=== PATIENT | male | born 1960 | race Caucasian/White ===

== ENCOUNTER 2016-08-12 11:27 | Inpatient (IN) | payer OTHER ==
[2016-08-12] VITALS (8 sets, daily range): BP systolic 115–148; BP diastolic 75–95; PULSE 82–102; TEMP 36.8–36.9; O2SAT 90–98; Ht 177.8 cm; Wt 75.5 kg
[~2016-08-12] VITALS: Ht 177.8 cm; Wt 75.5 kg
[~2016-08-12 11:27] MED LIST: ALBU1AER9 INH; ATOR-54 PO; CHOL100010 PO; CITA20TA9 PO; CLBCR15 TD; FLUT220A INH; FOLI1TAB7 PO; IPRASOL4 INH; LVQ500 PO; OXYC-59 PO; OXYC30TA35 PO; SALM50AE2 INH; TIOTCAP INH
[2016-08-12] MEDS ORDERED: NALOXONE HCL 0.4 MG/1 ML VIAL/CARP ONE (11:30)
[2016-08-12] MEDS ORDERED: NALOXONE HCL 0.4 MG/1 ML VIAL/CARP IV STA (11:31)
[2016-08-12] MEDS ORDERED: SODIUM CHLORIDE 0.9% 1000ML 1,000 ML IV STA (11:31)
[2016-08-12] MEDS ORDERED: NALOXONE HCL INJ 1 MG in SODIUM CHLORIDE 0.9% 1000ML 1,000 ML IV STA (11:37)
[2016-08-12] MEDS ORDERED: ONDANSETRON 8 MG/54 ML D5W IV STA (11:38)
[2016-08-12] MEDS ORDERED: RAPID SEQUENCE INDUCTION BAG ONE (11:40)
[2016-08-12] MEDS ORDERED: VECURONIUM BROMIDE 10 MG VIAL IV STA (11:41)
[2016-08-12] MEDS ORDERED: SUCCINYLCHOLINE CHLORIDE 20 MG/ML 10 ML VIAL IV STA (11:41)
[2016-08-12] MEDS ORDERED: ETOMIDATE 2 MG/ML 20 ML VIAL IV STA (11:41)
[2016-08-12] MEDS ORDERED: PROPOFOL IV EMULSION 10 MG/ML 100 ML VIAL IV STA (11:41)
[2016-08-12 11:56] LABS: ISTAT CREATININE 1.3 mg/dl (0.6-1.3); ISTAT HEMOGLOBIN 13.3 g/dl (14.0-18.0); ISTAT IONIZED CALCIUM 1.19 mmol/l (1.12-1.32)
[2016-08-12] MEDS ORDERED: OPTIRAY 320 IV PRN (12:00)
--- NOTE | 2016-08-12 12:07 | EMERGENCY ROOM VISIT NOTE ---
History Report prepared by Jimena: Milind Duarte Under the Supervision of: Dr. Rojas Ayala M.D. First contact with patient: 11:29 Stated Complaint: AMS/UNRESPONSIVE History of Present Illness The patient is a 56 year old male who presents to the Emergency Room unresponsive. Per the EMS the patient was found unresponsive on the floor this morning prior to arrival. Per the EMS he was hypoxic and cyanotic and he was coughing up white frothy sputum. History is limited due to the patient's altered mental status. Source of History: EMS History Limited By: AMS Onset: prior to arrival Position: other (global) Quality: other (unresponsive) Associated Symptoms: + cough Review of Systems HPI is limited due to altered mental status Past Medical & Surgical Medical Problems: (1) ACUTE RESPIRATORY FAILURE (2) BPH (benign prostatic hypertrophy) (3) Chronic back pain (4) COPD, severe (5) Hyperlipidemia (6) PERSONAL HISTORY, PNEUMONIA (RECURRENT) (7) Psoriasis (8) Tobacco use disorder (9) Unresponsive state Surgical Problems: (1) H/O colonoscopy (2) S/P tonsillectomy and adenoidectomy Family History FH: COPD (chronic obstructive pulmonary disease) FATHER BROTHER FH: alpha 1 antitrypsin deficiency BROTHER Social History Smoking Status: Current Every Day Smoker Marital Status: Housing Status: lives with significant other Occupation Status: disabled Current/Historical Medications Scheduled Albuterol (Proair Hfa), 2 PUFFS INH QID Atorvastatin (Lipitor), 20 MG PO DAILY Cholecalciferol (Vitamin D), 1,000 INTER.UNIT PO DAILY Citalopram Hydrobromide (Celexa), 20 MG PO DAILY Clobetasol Propionate 0.05% (Clobetasol Propionate 0.05% *), 1 APPLN TD BID PRN Fluticasone Propionate Hfa (Flovent Hfa 220MCG Inhaler), 1 PUFF INH BID Folic Acid (Folvite), 1 MG PO DAILY Levofloxacin (Levofloxacin), 500 MG PO DAILY@20 Salmeterol Xinafoate Inh (Serevent Diskus Inh), 1 PUFF INH BID Tiotropium [place] (Spiriva Handihaler), 1 CAP INH DAILY Scheduled PRN Ipratropium-Albuterol (Duoneb), 1 TREATMENT INH Q4H PRN for SOB/Wheezing Oxycodone Hcl (Oxycontin), 30 MG PO q3hrs PRN for Pain Oxycodone/Acetaminophen 10MG/325MG (Percocet 10MG/325MG), 1-2 TAB PO Q4 PRN for Pain Allergies Coded Allergies: No Known Allergies (Verified , 06/20/07) Physical Exam Vital Signs Date Time Temp Pulse Resp B/P Pulse Ox O2 Delivery O2 Flow Rate FiO2 08/12/16 13:07 96 16 96 Mechanical Ventilator 08/12/16 13:02 95 Mechanical Ventilator 08/12/16 13:02 94 16 96 Mechanical Ventilator 08/12/16 13:02 100 Mechanical Ventilator 08/12/16 12:58 137/87 08/12/16 12:57 98 16 95 Mechanical Ventilator 08/12/16 12:52 98 16 95 Mechanical Ventilator 08/12/16 12:50 35 08/12/16 12:47 97 16 95 Mechanical Ventilator 08/12/16 12:43 124/78 08/12/16 12:42 101 16 95 Mechanical Ventilator 08/12/16 12:37 96 16 94 Mechanical Ventilator 08/12/16 12:32 98 16 94 Mechanical Ventilator 08/12/16 12:28 107/63 08/12/16 12:27 100 16 95 Mechanical Ventilator 08/12/16 12:22 104 16 96 Mechanical Ventilator 08/12/16 12:21 121/68 08/12/16 12:15 102 08/12/16 12:02 108 16 96 Mechanical Ventilator 08/12/16 11:57 106 16 100 Mechanical Ventilator 08/12/16 11:52 114 18 100 Mechanical Ventilator 08/12/16 11:51 113 22 149/94 100 Mechanical Ventilator 08/12/16 11:38 116 6 102/54 92 Room Air Physical Exam GENERAL: Patient has respiratory snoring, hypoxic upon arrival. HEAD: Normocephalic atraumatic EYES: Ocular movements intact pupils equal and react to light OROPHARYNX mucous membranes are moist no exudates present no erythema or edema present NECK: Supple no nuchal rigidity CHEST: Good equal expansion LUNGS: Clear and equal to auscultation CARDIAC: Normal S1 and S2 ABDOMEN: Soft nontender no guarding BACK: No CVA tenderness EXTREMITIES: No pain upon palpation normal muscle strength in all groups no clubbing cyanosis or edema NEURO: Responds to painful stimuli. Cranial Nerves 2-12 grossly intact Medical Decision & Procedures ER Provider Diagnostic Interpretation: X-ray results as stated below per my interpretation and radiologist interpretation. Other radiology results as stated below per my review and radiologist interpretation: CHEST ONE VIEW PORTABLE CLINICAL HISTORY: Hypoxia. Intubation. COMPARISON STUDY: Chest radiograph May 11, 2016. FINDINGS: The tip of the endotracheal tube is 7.4 cm above the nikolai. There is no pneumothorax. Severe emphysema is present. There is no pneumothorax or pleural effusion. Cardiac size is within normal limits. Lower lung interstitial thickening and mild opacities is present. IMPRESSION: 1. Tip of endotracheal tube 7.4 cm above the nikolai. 2. Lower lung interstitial thickening and airspace opacity. This could reflect atelectasis or developing pneumonia. 3. Severe emphysema. Electronically signed by: Donaldo Mar M.D. 08/12/2016 12:09 PM Dictated Date/Time: 08/12/2016 12:[address] CT DOSE: HISTORY: Altered mental status. Unresponsive. TECHNIQUE: Multiaxial CT images of the head were performed without the use of intravenous contrast. Automated exposure control was utilized for this study. Comparison: Head CT 06/25/2007. Findings: The paranasal sinuses and mastoid air cells are clear. The calvarium and skull base are intact. There is no mass, hematoma, midline shift, acute infarct. Ventricles and sulci are within normal limits. Persistent fluid within the nasopharynx posteriorly. This remains unchanged. Motion artifact at the inferior aspect of the brain. Impression: 1. Motion artifact. No definite acute intracranial abnormality. 2. Fluid within the nasopharynx, unchanged. Electronically signed by: Ronaldo Dubon M.D. 08/12/2016 12:41 PM Dictated Date/Time: 08/12/2016 12:[address] ANGIOGRAPHY OF THE CHEST, PULMONARY EMBOLUS PROTOCOL CLINICAL HISTORY: Altered mental status. COMPARISON STUDY: Chest CT July 31, 2015 and chest radiograph August 12, 2016. TECHNIQUE: Following IV administration of 109 mL of Optiray-320, helical axial images of the chest were obtained utilizing the pulmonary embolus protocol. Maximal intensity projections and sagittal and coronal reformats were viewed on an independent 3D workstation. IV contrast was administered without complication. CT DOSE: 1503.39 mGy.cm FINDINGS: No pulmonary emboli are identified. The size of the heart is at the upper limits of normal. There is no pericardial effusion. There are no enlarged thoracic lymph nodes. There is mild dilatation of the central pulmonary arteries. The tip of the endotracheal tube is 5.4 cm above the nikolai. No pneumothorax or pleural effusion is present. Severe emphysema is noted. There is no lobar consolidation. Bilateral lower lobe opacities have developed since prior exam. An 8 mm subpleural nodule within the right lower lobe shown on image 171 of [address] of January 04, 2012. This is benign given stability. There are moderate secretions within the left mainstem bronchus. Parenchymal calcifications within the pancreatic head are partially imaged on this exam. There are gallstones within the gallbladder. IMPRESSION: 1. No pulmonary emboli identified. 2. Satisfactory positioning of the endotracheal tube. 3. Severe emphysema. 4. Mild subpleural bilateral lower lobe opacities. The appearance favors atelectasis although pneumonia could appear similar. 5. Secretions within the left mainstem bronchus. 6. Dilatation of the central pulmonary arteries which raises the possibility of pulmonary arterial hypertension. 7. Cholelithiasis. Electronically signed by: Donaldo Mar M.D. 08/12/2016 12:43 PM Dictated Date/Time: 08/12/2016 12:31 PM Laboratory Results Test 08/12/16 11:15 08/12/16 11:16 08/12/16 11:25 08/12/16 11:40 Osmolality 300 mOsm/kg (280-300) Prothrombin Time 12.0 SECONDS (9.0-12.0) Prothromb Time International Ratio 1.1 (0.9-1.1) Activated Partial Thromboplast Time 23.7 SECONDS (21.0-31.0) Partial Thromboplastin Ratio 0.9 Lipase 46 U/L (73-393) Salicylates Level 2.6 mg/dl (2.8-20) Phosphorus Level 6.5 mg/dl (2.5-4.9) Hepatitis C Antibody Screen PRELIM POS (NEG) Bedside Hemoglobin 13.3 g/dl (14.0-18.0) Bedside Hematocrit 39 % (42-52) Bedside Sodium 140 mEq/L (135-144) Bedside Potassium 4.6 mEq/L (3.3-5.0) Bedside Chloride 102 mEq/L (101-112) Bedside Total CO2 28 mEq/l (24-31) Bedside Blood Urea Nitrogen 15 mg/dl (7-18) Bedside Creatinine 1.3 mg/dl (0.6-1.3) Bedside Glucose (other) 83 mg/dl (70-99) Bedside Ionized Calcium (Juan Jose) 1.19 mmol/l (1.12-1.32) Test 08/12/16 12:50 08/12/16 12:59 Urine Color YELLOW Urine Appearance CLEAR (CLEAR) Urine pH 5.0 (4.5-7.5) Urine Specific [place] 1.025 (1.000-1.030) Urine Protein NEG (NEG) Urine Glucose (UA) NEG (NEG) Urine Ketones NEG (NEG) Urine Occult Blood NEG (NEG) Urine Nitrite NEG (NEG) Urine Bilirubin NEG (NEG) Urine Urobilinogen NEG (NEG) Urine Leukocyte Esterase NEG (NEG) Urine Opiates Screen POS (NEG) Urine Methadone, Qualitative NEG (NEG) Urine Barbiturates NEG (NEG) Urine Phencyclidine (PCP) Level NEG (NEG) Ur Amphetamine/Methamphetamine NEG (NEG) MDMA (Ecstasy) Screen NEG (NEG) Urine Benzodiazepines Screen NEG (NEG) Urine Cocaine Metabolite NEG (NEG) Urine Marijuana (THC) NEG (NEG) Arterial Blood pH 7.26 (7.35-7.45) Arterial Blood Partial Pressure CO2 59 mmHg (35-46) Arterial Blood Partial Pressure O2 71 mm/Hg (80-95) Arterial Blood HCO3 26 mmol/L (19-24) Arterial Blood Oxygen Saturation 90.8 % (90-95) Arterial Blood Base Excess -1.5 mEq/L (-9-1.8) Arterial Blood Gas Delivery 35% Eleazar Test POS (POS) Labs reviewed by ED physician. Medications Administered Medications (Trade) Dose Ordered Sig/Margarita Route Start Time Stop Time Status Last Admin Dose Admin Sodium Chloride (Nss 1000ml) 1,000 ml @ 999 mls/hr Q1H1M STAT IV 08/12/16 11:31 08/12/16 12:31 DC 08/12/16 11:31 999 MLS/HR Naloxone HCl (Narcan Inj) 0.4 mg NOW STAT IV 08/12/16 11:31 08/12/16 11:33 DC 08/12/16 12:43 0.4 MG Etomidate (Amidate Inj) 20 mg 1141 STAT IV 08/12/16 11:41 08/12/16 11:43 DC 08/12/16 12:44 20 MG Succinylcholine Chloride (Quelicin Inj) 200 mg NOW STAT IV 08/12/16 11:41 08/12/16 11:43 DC 08/12/16 12:45 200 MG Vecuronium [place] (Vecuronium [place] Inj) 10 mg NOW STAT IV 08/12/16 11:41 08/12/16 11:43 DC 08/12/16 12:45 10 MG Propofol (Diprivan Iv Emulsion 100ml Vial) 1 dose UD STAT IV 08/12/16 11:41 08/12/16 11:43 DC 08/12/16 12:46 1 DOSE Miscellaneous 1 ea 1 ea STK-MED ONCE N/A 08/12/16 11:40 08/12/16 11:42 DC 08/12/16 11:40 1 EA Sodium Chloride (Nss 1000ml) 1,000 ml @ 100 mls/hr Q10H IV 08/12/16 13:00 09/11/16 12:59 08/13/16 09:48 100 MLS/HR Morphine Sulfate (MoRPHine SULFATE INJ) 2 mg Q2H PRN IV 08/12/16 13:00 08/26/16 12:59 08/13/16 11:57 2 MG Albuterol (Ventolin Hfa Inhaler) 2 puffs QID INH 08/12/16 13:00 09/11/16 12:59 08/13/16 13:35 2 PUFFS Procedure Endotracheal Intubation Indication Resp failure The patient was on 100% oxygen via NRB prior to the procedure. Suction, airway equipment, RSI drugs, respiratory equipment, and appropriate personnel were prepared prior to the initiation of the procedure. A time out was taken. Induction was performed with Etomidate and Succ. After observing the clinical benefit of the medications, the airway was easily visualized utilizing a Glidescope. A 8.0 size ETT tube was placed atraumatically to 25 cm using standard technique. The cuff inflated without signs of malfunction. There were bilateral breath sounds, positive colormetric change, no gastric sounds, a good capnography waveform, and post procedure pulse oximetry was 100%. Post intubation sedation and paralysis was administered using Vec and propofol. There were no complications. ED Course 1129: Past medical records reviewed. The patient was evaluated in room B1. A complete history and physical examination was performed. 1131: Narcan Inj .4mg IV, Sodium Chloride 1000 ml @ 999 mls/hr IV 1141: Propofol 1 dose IV, Vecuronium [place] 10mg IV, Succinylcholine Chloride 200mg IV, Amidate Inj 20mg IV 1222: I discussed the patient's case with Dr. Wakefield, and he suggests keeping the patient for further evaluation. 1225: I discussed the patient's case with Mariana Moyer PA-C. She is going to evaluate the patient for further treatment 1249: Vancomycin 1gm/ 270ml NSS 1gm IV, Zosyn 4.5gm IV Medical Decision Differential diagnosis: Etiologies such as metabolic, infection, hypoglycemia, electrolyte abnormalities , cardiac sources, intracerebral event, toxicologic, neurologic, as well as others were entertained. This is a 56-year-old male who presents emergency department unresponsive. The patient's states he is on Percocet as well as oxycodone. For this reason he was given Narcan in the emergency department however the patient did not respond well. Based on his history of COPD that the patient was intubated as above. He does appear to have a pneumonia on chest x-ray therefore he was started on antibiotics and given breathing treatments. I did discuss the case with both the credit or loans officer as well as the hospitalist who agreed to admit the patient. Patient was in agreement with the treatment plan Consults Time Called: 1219 Consulting Physician: Dr. Wakefield Returned Call: 1222 I discussed the patient's case with Dr. Wakefield, and he suggests keeping the patient for further evaluation. Additional Consults: Time Called: 1224 Consulted Physician: Mari Moyer PA-C Returned Call: 1225 Additional Comments: I discussed the patient's case with Mariana Moyer PA-C. She is going to evaluate the patient for further treatment Impression Primary Impression: ACUTE RESPIRATORY FAILURE Critical Care I have personally spent greater than 30 minutes of critical care time in the direct management of this patient. This includes bedside care, interpretation of diagnostic studies, and testing, discussion with consultants, patient, and family members, and other required patient management activities. This 30 minutes is in excess of all separately billable procedures. Scribe Attestation The scribe's documentation has been prepared under my direction and personally reviewed by me in its entirety. I confirm that the note above accurately reflects all work, treatment, procedures, and medical decision making performed by me. Departure Information Dispostion Being Evaluated By Hospitalist Referrals Howard Myers M.D. (PCP)
--- NOTE | 2016-08-12 12:10 | DIAGNOSTIC IMAGING REPORT ---
CHEST ONE VIEW PORTABLE CLINICAL HISTORY: Hypoxia. Intubation. COMPARISON STUDY: Chest radiograph May 11, 2016. FINDINGS: The tip of the endotracheal tube is 7.4 cm above the nkiolai. There is no pneumothorax. Severe emphysema is present. There is no pneumothorax or pleural effusion. Cardiac size is within normal limits. Lower lung interstitial thickening and mild opacities is present. IMPRESSION: 1. Tip of endotracheal tube 7.4 cm above the nikolai. 2. Lower lung interstitial thickening and airspace opacity. This could reflect atelectasis or developing pneumonia. 3. Severe emphysema. Electronically signed by: Donaldo Mar M.D. 08/12/2016 12:09 PM Dictated Date/Time: 08/12/2016 12:06 PM
[2016-08-12 12:17] LABS: COMPLETE YES; HEMATOCRIT 37.8 % (42-52); IG% 0.3 %; LYMPH % 3.6 %; MEAN CELL VOLUME 97.7 fL (80-100); MEAN CORPUSCULAR HEMOGLOBIN 32.6 pg (25-34); MEAN CORPUSCULAR HGB CONC 33.3 g/dl (32-36); MEAN PLATELET VOLUME 9.8 fL (7.4-10.4); NEUT % 94.1 %; PLATELET COUNT 171 K/uL (130-400); RED BLOOD COUNT 3.87 M/uL (4.7-6.1); WHITE BLOOD COUNT 11.03 K/uL (4.8-10.8)
[2016-08-12 12:25] LABS: INR 1.1 (0.9-1.1); PARTIAL THROMBOPLASTIN RATIO 0.9
[2016-08-12 12:40] LABS: ALT/SGPT 25 U/L (12-78); AST/SGOT 47 U/L (15-37); BLOOD UREA NITROGEN 14 mg/dl (7-18); BUN/CREATININE RATIO 9.2 (10-20); CALCIUM 8.8 mg/dl (8.5-10.1); CARBON DIOXIDE 25 mmol/L (21-32); CHLORIDE 105 mmol/L (98-107); GLUCOSE 81 mg/dl (70-99); POTASSIUM 4.5 mmol/L (3.5-5.1); SODIUM 142 mmol/L (136-145)
[2016-08-12 12:43] LABS: ALKALINE PHOSPHATASE 108 U/L (45-117)
--- NOTE | 2016-08-12 12:43 | DIAGNOSTIC IMAGING REPORT ---
HEAD CT NONCONTRAST CT DOSE: HISTORY: Altered mental status. Unresponsive. TECHNIQUE: Multiaxial CT images of the head were performed without the use of intravenous contrast. Automated exposure control was utilized for this study. Comparison: Head CT 06/25/2007. Findings: The paranasal sinuses and mastoid air cells are clear. The calvarium and skull base are intact. There is no mass, hematoma, midline shift, acute infarct. Ventricles and sulci are within normal limits. Persistent fluid within the nasopharynx posteriorly. This remains unchanged. Motion artifact at the inferior aspect of the brain. Impression: 1. Motion artifact. No definite acute intracranial abnormality. 2. Fluid within the nasopharynx, unchanged. Electronically signed by: Ronaldo Dubon M.D. 08/12/2016 12:41 PM Dictated Date/Time: 08/12/2016 12:35 PM
--- NOTE | 2016-08-12 12:44 | DIAGNOSTIC IMAGING REPORT ---
CT ANGIOGRAPHY OF THE CHEST, PULMONARY EMBOLUS PROTOCOL CLINICAL HISTORY: Altered mental status. COMPARISON STUDY: Chest CT July 31, 2015 and chest radiograph August 12, 2016. TECHNIQUE: Following IV administration of 109 mL of Optiray-320, helical axial images of the chest were obtained utilizing the pulmonary embolus protocol. Maximal intensity projections and sagittal and coronal reformats were viewed on an independent 3D workstation. IV contrast was administered without complication. CT DOSE: 1503.39 mGy.cm FINDINGS: No pulmonary emboli are identified. The size of the heart is at the upper limits of normal. There is no pericardial effusion. There are no enlarged thoracic lymph nodes. There is mild dilatation of the central pulmonary arteries. The tip of the endotracheal tube is 5.4 cm above the nikolai. No pneumothorax or pleural effusion is present. Severe emphysema is noted. There is no lobar consolidation. Bilateral lower lobe opacities have developed since prior exam. An 8 mm subpleural nodule within the right lower lobe shown on image 171 of [address] of January 04, 2012. This is benign given stability. There are moderate secretions within the left mainstem bronchus. Parenchymal calcifications within the pancreatic head are partially imaged on this exam. There are gallstones within the gallbladder. IMPRESSION: 1. No pulmonary emboli identified. 2. Satisfactory positioning of the endotracheal tube. 3. Severe emphysema. 4. Mild subpleural bilateral lower lobe opacities. The appearance favors atelectasis although pneumonia could appear similar. 5. Secretions within the left mainstem bronchus. 6. Dilatation of the central pulmonary arteries which raises the possibility of pulmonary arterial hypertension. 7. Cholelithiasis. Electronically signed by: Donaldo Mar M.D. 08/12/2016 12:43 PM Dictated Date/Time: 08/12/2016 12:31 PM
[2016-08-12] MEDS ORDERED: PIPERACILLIN/TAZOBACTAM 4.5 GM/100ML D5W IV STA (12:49)
[2016-08-12] MEDS ORDERED: VANCOMYCIN 1GM/270ML NSS IV STA (12:49)
[2016-08-12] MEDS ORDERED: LEVAQUIN 750MG / 150ML D5W IV ONE (13:00)
[2016-08-12] MEDS ORDERED: LORAZEPAM 2 MG/ML 1 ML VIAL IV PRN (13:00)
[2016-08-12] MEDS ORDERED: NITROGLYCERIN 0.4 MG SL PER TAB CHARGE SL PRN (13:00)
[2016-08-12] MEDS ORDERED: ONDANSETRON INJ 2 MG/ML 2 ML VIAL IV PRN (13:00)
[2016-08-12 13:09] LABS: ARTERIAL BLD GAS O2 SATURATION 90.8 % (90-95); ARTERIAL BLOOD GAS BASE EXCESS -1.5 mEq/L (-9-1.8); ARTERIAL BLOOD GAS HCO3 26 mmol/L (19-24); ARTERIAL BLOOD GAS PO2 71 mm/Hg (80-95); ARTERIAL BLOOD GAS pH 7.26 (7.35-7.45)
[2016-08-12 13:10] LABS: ALLEN TEST POS (POS); O2 ADMINISTRATION 35%
[2016-08-12 13:18] LABS: URINE APPEARANCE CLEAR (CLEAR); URINE BILIRUBIN NEG (NEG); URINE COLOR YELLOW; URINE NITRITE NEG (NEG); URINE SPECIFIC GRAVITY 1.025 (1.000-1.030); UROBILINOGEN NEG (NEG)
[2016-08-12 13:22] LABS: MANUAL MICROSCOPIC REQUIRED? NO; REVIEW REQ? NO
[2016-08-12 13:51] LABS: BENZODIAZEPINE, URINE NEG (NEG); COCAINE,URINE NEG (NEG); PHENCYCLIDINE, URINE NEG (NEG)
--- NOTE | 2016-08-12 14:08 | Medical Student: [facility] ---
Med Student History & Physical Date & Time of Service: Aug 12, 2016 at 13:58 Chief Complaint: Ams/Unresponsive Primary Care Physician: Howard Myers M.D. History of Present Illness Source: family (daughter), hospital records Pt is a 56 yo male with a history of Emphysema and Chronic back pain - who presented to the ED via EMS after he was found unresponsive in his home. In the ED he responded to Narcan, but became bradypneic again and was intubated. Per pt 's daughter, pt frequently takes "too much" prescribed pain medication and often talks about how he just wants to "give up." Per daughter's report the pt has previously been hospitalized and intubated for opioid overdose about 5 years ago. Pt's daughter reports that he is perscribed 10 mg of oxycontin 8x daily and 60 mg of percocet, prn for break through pain. Pt's daughter was considering calling [facility] today, as she was very worried about her father and the amount of pain medication he has been taking. Past Medical/Surgical History COPD - emphysema Chronic back pain Family History Unable to obtain as pt is sedated. Social History Smoking Status: Current Every Day Smoker Alcohol Use: none Marital Status: Housing status: lives with significant other Occupational Status: disabled Immunizations History of Influenza Vaccine: N/A Influenza Vaccine Date: Apr 19, 2009 History of Tetanus Vaccine?: Unknown History of Pneumococcal: Yes Pneumococcal Date: Jan 03, 2011 History of Hepatitis B Vaccine: No Allergies Coded Allergies: No Known Allergies (Verified , 06/20/07) Medications Albuterol (Proair Hfa), 2 PUFFS INH QID Atorvastatin (Lipitor), 20 MG PO DAILY Cholecalciferol (Vitamin D), 1,000 INTER.UNIT PO DAILY Citalopram Hydrobromide (Celexa), 20 MG PO DAILY Clobetasol Propionate 0.05% (Clobetasol Propionate 0.05% *), 1 APPLN TD BID PRN Fluticasone Propionate Hfa (Flovent Hfa 220MCG Inhaler), 1 PUFF INH BID Folic Acid (Folvite), 1 MG PO DAILY Ipratropium-Albuterol (Duoneb), 1 TREATMENT INH Q4H PRN for SOB/Wheezing Levofloxacin (Levofloxacin), 500 MG PO DAILY@20 Oxycodone Hcl (Oxycontin), 30 MG PO q3hrs PRN for Pain Oxycodone/Acetaminophen 10MG/325MG (Percocet 10MG/325MG), 1-2 TAB PO Q4 PRN for Pain Salmeterol Xinafoate Inh (Serevent Diskus Inh), 1 PUFF INH BID Tiotropium Wellborn (Spiriva Handihaler), 1 CAP INH DAILY Review of Systems unable to obtain as pt is currently sedated. Physical Exam Vital Signs (24 Hours) Date Time Temp Pulse Resp B/P Pulse Ox O2 Delivery O2 Flow Rate FiO2 08/12/16 13:32 89 08/12/16 13:07 96 16 96 Mechanical Ventilator 08/12/16 13:02 95 Mechanical Ventilator 08/12/16 13:02 94 16 96 Mechanical Ventilator 08/12/16 13:02 100 Mechanical Ventilator 08/12/16 12:58 137/87 08/12/16 12:57 98 16 95 Mechanical Ventilator 08/12/16 12:52 98 16 95 Mechanical Ventilator 08/12/16 12:50 35 08/12/16 12:47 97 16 95 Mechanical Ventilator 08/12/16 12:43 124/78 08/12/16 12:42 101 16 95 Mechanical Ventilator 08/12/16 12:37 96 16 94 Mechanical Ventilator 08/12/16 12:32 98 16 94 Mechanical Ventilator 08/12/16 12:28 107/63 08/12/16 12:27 100 16 95 Mechanical Ventilator 08/12/16 12:22 104 16 96 Mechanical Ventilator 08/12/16 12:21 121/68 08/12/16 12:15 102 08/12/16 12:02 108 16 96 Mechanical Ventilator 08/12/16 11:57 106 16 100 Mechanical Ventilator 08/12/16 11:52 114 18 100 Mechanical Ventilator 08/12/16 11:51 113 22 149/94 100 Mechanical Ventilator 08/12/16 11:38 116 6 102/54 92 Room Air General Appearance: + pertinent finding (Currently intubated and sedated) Head: normocephalic, atraumatic Eyes: + pertinent finding (pinpoint pupils, non-reactive to light. ) Neck: supple, no JVD Respiratory/Chest: + decreased breath sounds Cardiovascular: regular rate, rhythm, no murmur, + abnormal peripheral pulses ( 2+ radial pulses bilaterally, 2+ right pedal pulse, 1+ left pedal pulse) Abdomen/GI: normal bowel sounds, soft, no pulsatile mass Extremities/Musculoskelatal: normal inspection, no pedal edema, + pertinent finding (Severe onychomycosis bilaterally in LE) Skin: normal color, warm/dry Diagnostics Laboratory Results Results Past 24 Hours Test 08/12/16 11:15 08/12/16 11:16 08/12/16 11:25 08/12/16 11:40 Range/Units White Blood Count 11.03 4.8-10.8 K/uL Red Blood Count 3.87 4.7-6.1 M/uL Hemoglobin 12.6 14.0-18.0 g/dL Hematocrit 37.8 42-52 % Mean Corpuscular Volume 97.7 80-100 fL Mean Corpuscular Hemoglobin 32.6 25-34 pg Mean Corpuscular Hemoglobin Concent 33.3 32-36 g/dl Platelet Count 171 130-400 K/uL Mean Platelet Volume 9.8 7.4-10.4 fL Neutrophils (%) (Auto) 94.1 % Lymphocytes (%) (Auto) 3.6 % Monocytes (%) (Auto) 2.0 % Eosinophils (%) (Auto) 0.0 % Basophils (%) (Auto) 0.0 % Neutrophils # (Auto) 10.38 1.4-6.5 K/uL Lymphocytes # (Auto) 0.40 1.2-3.4 K/uL Monocytes # (Auto) 0.22 0.11-0.59 K/uL Eosinophils # (Auto) 0.00 0-0.5 K/uL Basophils # (Auto) 0.00 0-0.2 K/uL RDW Standard Deviation 49.0 36.4-46.3 fL RDW Coefficient of Variation 13.8 11.5-14.5 % Immature Granulocyte % (Auto) 0.3 % Immature Granulocyte # (Auto) 0.03 0.00-0.02 K/uL Prothrombin Time 12.0 9.0-12.0 SECONDS Prothromb Time International Ratio 1.1 0.9-1.1 Activated Partial Thromboplast Time 23.7 21.0-31.0 SECONDS Partial Thromboplastin Ratio 0.9 Sodium Level 142 136-145 mmol/L Potassium Level 4.5 3.5-5.1 mmol/L Chloride Level 105 98-107 mmol/L Carbon Dioxide Level 25 21-32 mmol/L Anion Gap 12.0 15.0 16-25 mmol/L Blood Urea Nitrogen 14 7-18 mg/dl Creatinine 1.50 0.60-1.40 mg/dl Estimated GFR () 59.0 Estimated GFR (Non- 50.9 BUN/Creatinine Ratio 9.2 10-20 Random Glucose 81 70-99 mg/dl Calcium Level 8.8 8.5-10.1 mg/dl Total Bilirubin 0.6 0.2-1 mg/dl Direct Bilirubin 0.2 0-0.2 mg/dl Aspartate Amino Transf (AST/SGOT) 47 15-37 U/L Alanine Aminotransferase (ALT/SGPT) 25 12-78 U/L Alkaline Phosphatase 108 45-117 U/L Total Creatine Kinase 579 39-308 U/L Total Protein 6.7 6.4-8.2 gm/dl Albumin 4.1 3.4-5.0 gm/dl Lipase 46 73-393 U/L Salicylates Level 2.6 2.8-20 mg/dl Acetaminophen Level 52 10-30 ug/ml Creatine Kinase MB 12.5 0.5-3.6 ng/ml Creatine Kinase MB Ratio 0-3.0 Troponin I 0.021 0-0.045 ng/ml Bedside Hemoglobin 13.3 14.0-18.0 g/dl Bedside Hematocrit 39 42-52 % Bedside Sodium 140 135-144 mEq/L Bedside Potassium 4.6 3.3-5.0 mEq/L Bedside Chloride 102 101-112 mEq/L Bedside Total CO2 28 24-31 mEq/l Bedside Blood Urea Nitrogen 15 7-18 mg/dl Bedside Creatinine 1.3 0.6-1.3 mg/dl Bedside Glucose (other) 83 70-99 mg/dl Bedside Ionized Calcium (Juan Jose) 1.19 1.12-1.32 mmol/l Test 08/12/16 12:50 08/12/16 12:59 08/12/16 13:18 Range/Units Urine Color YELLOW Urine Appearance CLEAR CLEAR Urine pH 5.0 4.5-7.5 Urine Specific [place] 1.025 1.000-1.030 Urine Protein NEG NEG Urine Glucose (UA) NEG NEG Urine Ketones NEG NEG Urine Occult Blood NEG NEG Urine Nitrite NEG NEG Urine Bilirubin NEG NEG Urine Urobilinogen NEG NEG Urine Leukocyte Esterase NEG NEG Urine Opiates Screen POS NEG Urine Methadone, Qualitative NEG NEG Urine Barbiturates NEG NEG Urine Phencyclidine (PCP) Level NEG NEG Ur Amphetamine/Methamphetamine NEG NEG MDMA (Ecstasy) Screen NEG NEG Urine Benzodiazepines Screen NEG NEG Urine Cocaine Metabolite NEG NEG Urine Marijuana (THC) NEG NEG Arterial Blood pH 7.26 7.35-7.45 Arterial Blood Partial Pressure CO2 59 35-46 mmHg Arterial Blood Partial Pressure O2 71 80-95 mm/Hg Arterial Blood HCO3 26 19-24 mmol/L Arterial Blood Oxygen Saturation 90.8 90-95 % Arterial Blood Base Excess -1.5 -9-1.8 mEq/L Arterial Blood Gas Delivery 35% Eleazar Test POS POS Microbiology Results 08/12/16 Blood Culture, Received Pending 08/12/16 Blood Culture, Received Pending 08/12/16 Blood Culture, Linda Batch Pending 08/12/16 Blood Culture, Linda Batch Pending Impression Assessment and Plan Pt is 56 yo male with a history of COPD and chronic back pain who was found unresponsive in his home and brought to the ED via EMS. Neurologic * Sedated on ventilator following presumed overdose - unclear if intentional or unintentional * RASS -5 * EEG ordered * Lorazepam 1 mg q6hrs PRN for anxiety/agitation * Morphine Sulfate 2 mg q 1hrs PRN for pain Cardiovascular * Normotensive with normal heart rate - not on home medications for blood pressure * Nitroglycerin 0.4 ordered prn for chest pain * Chest CT remarkable for pulmonary artery dilation and thus possible pulmonary artery hypertension Respiratory * Intubated. Recommend Extubation and BIPAP 40% FIO2 12/5. * Acute Respiratory Acidosis * Continue home medications Tiotropium Wellborn qday, Salmeterol Xinafoate BID, Albuterol QID. Renal * MORRO - creatinine increased to 1.5 on admission, up from normal baseline. * Branham catheter in place - continue to monitor I's and O's. GI * Pantoprazole 40 mg q day IV * Zofran 4 mg q 6hrs PRN Infectious Disease * WBC elevated - 11.3 on admission. Continue to monitor daily. * CXR and Chest CT both show severe emphysema and are inconclusive as to whether he may have acute PNA vs Atelectasis * Blood cxs ordered * Empiric Abx started - IV Pip/Tazo 3.375 gms in dextrose 115 mLs at 200 mLs/hr Endo * continue to monitor blood glucose levels. Goal serum glucose <120. Hematology * No concerns at present. Fluids * NSS 1,000 mLs at 100 mLs/hr q 10 hours Dispo: Admit to ICU Full Resuscitation Consider VTE prophylaxis Level of Care Critical Care Resuscitation Status FULL RESUSCITATION Note I saw the patient with student Dr. Shavon Brown. Independently evaluated the patient as well as taken history, please refer to the resident's note as well as their addendum.
[2016-08-12] MEDS ORDERED: PROPOFOL IV EMULSION 10 MG/ML 20 ML VIAL IV ONE (14:10)
--- NOTE | 2016-08-12 14:10 | HISTORY & PHYSICAL EXAMINATION ---
DATE OF ADMISSION: 08/12/2016 CHIEF COMPLAINT: Unresponsiveness. HISTORY OF PRESENT ILLNESS: This is a 56-year-old male with past medical history significant for severe COPD on home oxygen but does not use frequently as per , history of chronic bilateral low back pain and bilateral sciatica and neck pain, tobacco use disorder, psoriasis, history of BPH, history of testicular hypofunction, history of elevated blood pressure, history of respiratory failure in the past, history of benign neoplasm of colon, history of hyperlipidemia, history of alpha 1 antitrypsin deficiency, was found unresponsive at home. As per the , the patient was somewhat restless and talking to himself last night. He does at once in a while and she thought maybe he took extra pain medications, but in the morning when his friend went to check on him, he was found unresponsive and frothing around his mouth and was brought into the ER. In the ER, his respiratory rates were very low and he was given 0.4 of Narcan. He woke up for a brief while and was placed on BiPAP and he talked for a while but he did not answer the questions about what he took, and he went back to sleep, so at that time was decided for intubation. Currently, the patient is intubated, paralyzed and sedated.Hemodynamics stable currently. He is afebrile. Could not get review of symptoms as the patient is currently sedated and intubated. ALLERGIES: No known drug allergies. PAST MEDICAL HISTORY: As mentioned above. PAST SURGICAL HISTORY: Colonoscopy with biopsy, tonsillectomy and adenoidectomy. MEDICATIONS AT HOME: The patient is on folic acid 1 mg p.o. daily, atorvastatin 20 mg p.o. daily, azithromycin rescue pack, prednisone as directed, Serevent Diskus 1 puff b.i.d., Lasix 20 mg for his leg swelling and potassium chloride ER 20 mEq when taking Lasix, ProAir 2 puffs 4 times a day as needed, albuterol nebulization every 4 hours p.r.n., oxycodone 30 mg p.o. every 3 hours as needed, Percocet 10/325 mg 1 or 2 pills every 4 hours as needed, vitamin D 2000 units p.o. daily, Spiriva 18 mcg inhalation daily. FAMILY HISTORY: Significant for father has COPD and gout. SOCIAL HISTORY: Smokes 2 packs a day for 40 years. Alcohol rare. No drug use. He is and lives with his . REVIEW OF SYMPTOMS: Unobtainable as the patient is intubated and sedated. PHYSICAL EXAMINATION: VITAL SIGNS: Temperature afebrile, pulse 102, respiratory rate 22, blood pressure 102/54, oxygen 100% on mechanical ventilator. GENERAL: The patient is intubated and sedated. HEENT: No pallor. No icterus. Pupils mildly reactive to light, constricted. NECK: No JVD, no neck masses, no carotid bruits. CARDIOVASCULAR: S1, S2 heard, regular rate and rhythm. No murmur. RESPIRATORY SYSTEM: Normal Ap diameter No accessory muscle use. No wheezing, no crackles. ABDOMEN: Soft, bowel sounds present. No distention. CENTRAL NERVOUS SYSTEM: Status post sedated and intubated. Babinski is negative. EXTREMITIES: No edema, no erythema. LABORATORIES: WBC 11.03, hemoglobin 12.6, hematocrit 37.8, platelets 171. Sodium 140, potassium 4.6, chloride 102, bicarb 28, BUN 15, creatinine 1.3, serum glucose 83. Point of care ionized calcium 1.19. ABG pending. PT 12, INR 1.1, PTT 23.7. Urinalysis pending. Toxicology screen pending. IMAGING DATA: Chest x-ray - tip of endotracheal tube 7.47 cm above nikolai, lower lung interstitial thickening and airspace opacity; this could reflect atelectasis or developing pneumonia severe emphysema. ASSESSMENT AND PLAN: This is a 56-year-old male presents with unresponsive episode. 1. Unresponsive episode, most likely secondary to narcotic overdose with underlying severe chronic obstructive pulmonary disease. Status post minimal response to 0.4 mg .currently status post sedated and intubated. Supportive care. Toxicology screen pending. Will monitor in ICU. Critical care on board. Vent management as per critical care. CT head and CTA chest unremarkable 2. Possible pneumonia, possible aspiration _Hx of chronic obstructive pulmonary disease. We will place him on IV Zosyn and IV doxycycline and follow the cultures and follow the chest x-rays and follow the labs. 3. Severe chronic obstructive pulmonary disease. Currently intubated. inhalers while on ventilator. 4. Chronic pain. The patient is on oxycodone and Percocet, which we will hold for now as the patient is possibly overdosed. Will restart cautiously when the patient is more awake. 5. History of hyperlipidemia. Hold statin. 6. Deep venous thrombosis prophylaxis. Sequential compression devices for now. 7. Disposition: Monitor in ICU. MTDD
[2016-08-12] MEDS ORDERED: PIPERACILL/TAZOBAC CONSULT ACTIVE PRN (14:45)
--- NOTE | 2016-08-12 15:01 | Critical Care Consultation ---
Critical Care Consultation Date of Consultation: Aug 12, 2016. Attending Physician: Reason for Consultation: Unresponsive s/p intubation History of Present Illness This is a 56 y/o M with a history of COPD, CHronic back pain, anxiety/ depression who was brought to the ER after being found at home unresponsive by a friend. No history was obtainable from the patient. However, Daughter was in the room and reports that this has been an ongoing issue. He takes a significant amount of pain medicine for his chronic back pain and usually takes too much. He has been found unresponsive in the past and was intubated. 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 Since then he has not been able to work and has been on disability. He is a smoker and was an alcoholic but stopped the alcohol because of interactions with his oxycodone. She reports that she was going to call [employer] today due to his mood/possible suicidal ideations. She reports that he has "given up." is POA. In the ED, he was given Narcan, to which he seemed to respond but then became unresponsive again after which he was intubated. Family History FH: COPD (chronic obstructive pulmonary disease) FATHER BROTHER FH: alpha 1 antitrypsin deficiency BROTHER Social History Smoking Status: Current Every Day Smoker Alcohol Use: none Marital Status: Housing Status: lives with significant other Occupation Status: disabled Allergies Coded Allergies: No Known Allergies (Verified , 06/20/07) Home Medications Scheduled Albuterol (Proair Hfa), 2 PUFFS INH QID Atorvastatin (Lipitor), 20 MG PO DAILY Cholecalciferol (Vitamin D), 1,000 INTER.UNIT PO DAILY Citalopram Hydrobromide (Celexa), 20 MG PO DAILY Clobetasol Propionate 0.05% (Clobetasol Propionate 0.05% *), 1 APPLN TD BID PRN Fluticasone Propionate Hfa (Flovent Hfa 220MCG Inhaler), 1 PUFF INH BID Folic Acid (Folvite), 1 MG PO DAILY Levofloxacin (Levofloxacin), 500 MG PO DAILY@20 Salmeterol Xinafoate Inh (Serevent Diskus Inh), 1 PUFF INH BID Tiotropium [place] (Spiriva Handihaler), 1 CAP INH DAILY Scheduled PRN Ipratropium-Albuterol (Duoneb), 1 TREATMENT INH Q4H PRN for SOB/Wheezing Oxycodone Hcl (Oxycontin), 30 MG PO q3hrs PRN for Pain Oxycodone/Acetaminophen 10MG/325MG (Percocet 10MG/325MG), 1-2 TAB PO Q4 PRN for Pain Current Inpatient Medications Current Inpatient Medications Medications (Trade) Dose Ordered Sig/Margarita Route Start Time Stop Time Status Last Admin Dose Admin Naloxone HCl/ Sodium Chloride (Narcan Inj/Nss 1000ml) 1,002.5 ml @ 50 mls/hr Q20H3M STAT IV 08/12/16 11:37 08/13/16 07:39 Ioversol 125 ml 125 ml UD PRN IV 08/12/16 12:00 08/16/16 11:59 Sodium Chloride (Nss 1000ml) 1,000 ml @ 100 mls/hr Q10H IV 08/12/16 13:00 09/11/16 12:59 Lorazepam (Ativan Inj) 1 mg Q6H PRN IV 08/12/16 13:00 09/11/16 12:59 Nitroglycerin (Nitrostat Tab) 0.4 mg UD PRN SL 08/12/16 13:00 09/11/16 12:59 Ondansetron HCl 4 mg 4 mg Q6H PRN IV 08/12/16 13:00 09/11/16 12:59 Pantoprazole Sodium/Syringe (Protonix Inj/ Syringe) 10 ml @ 5 mls/min DAILY IV 08/13/16 09:00 09/12/16 08:59 UNV Morphine Sulfate (MoRPHine SULFATE INJ) 2 mg Q2H PRN IV 08/12/16 13:00 08/26/16 12:59 Albuterol (Ventolin Hfa Inhaler) 2 puffs QID INH 08/12/16 13:00 09/11/16 12:59 UNV Salmeterol Xinafoate (Serevent Diskus Inh) 1 puffs BID INH 08/12/16 21:00 09/11/16 20:59 UNV Tiotropium [place] 1 puff 1 puff DAILY INH 08/13/16 09:00 09/12/16 08:59 UNV Piperacillin Sod/ Tazobactam Sod 3.375 gm/Dextrose 115 ml @ 200 mls/hr Q6 IV 08/12/16 18:00 08/14/16 17:59 UNV Doxycycline Hyclate/Dextrose (Vibramycin IV/ D5 100ml) 110 ml @ 50 mls/hr BID IV 08/12/16 13:00 08/19/16 12:59 UNV Review of Systems unobtainable Physical Exam Date Time Temp Pulse Resp B/P Pulse Ox O2 Delivery O2 Flow Rate FiO2 08/12/16 13:58 36.9 85 16 119/80 95 Mechanical Ventilator 08/12/16 13:32 89 08/12/16 13:07 96 16 96 Mechanical Ventilator 08/12/16 13:02 95 Mechanical Ventilator 08/12/16 13:02 94 16 96 Mechanical Ventilator 08/12/16 13:02 100 Mechanical Ventilator 08/12/16 12:58 137/87 08/12/16 12:57 98 16 95 Mechanical Ventilator 08/12/16 12:52 98 16 95 Mechanical Ventilator 08/12/16 12:50 35 08/12/16 12:47 97 16 95 Mechanical Ventilator 08/12/16 12:43 124/78 08/12/16 12:42 101 16 95 Mechanical Ventilator 08/12/16 12:37 96 16 94 Mechanical Ventilator 08/12/16 12:32 98 16 94 Mechanical Ventilator 08/12/16 12:28 107/63 08/12/16 12:27 100 16 95 Mechanical Ventilator 08/12/16 12:22 104 16 96 Mechanical Ventilator 08/12/16 12:21 121/68 08/12/16 12:15 102 08/12/16 12:02 108 16 96 Mechanical Ventilator 08/12/16 11:57 106 16 100 Mechanical Ventilator 08/12/16 11:52 114 18 100 Mechanical Ventilator 08/12/16 11:51 113 22 149/94 100 Mechanical Ventilator 08/12/16 11:38 116 6 102/54 92 Room Air General Appearance: + pertinent finding (Intubated) Eyes: + pertinent finding (pupils miotic) Neck: thyroid normal, no JVD, trachea midline Respiratory/Chest: + pertinent finding (distant breath sounds) Cardiovascular: regular rate, rhythm, no edema, no JVD, no murmur, + pertinent finding (distant heart sounds) Abdomen/GI: normal bowel sounds, soft Extremities/Musculoskelatal: normal inspection, no pedal edema, + pertinent finding (right dp 2+, left dp is faint, Onychomycosis ) Laboratory Results Last 24 Hours Test 08/12/16 11:15 08/12/16 11:16 08/12/16 11:25 08/12/16 11:40 Osmolality 300 mOsm/kg White Blood Count 11.03 K/uL Red Blood Count 3.87 M/uL Hemoglobin 12.6 g/dL Hematocrit 37.8 % Mean Corpuscular Volume 97.7 fL Mean Corpuscular Hemoglobin 32.6 pg Mean Corpuscular Hemoglobin Concent 33.3 g/dl Platelet Count 171 K/uL Mean Platelet Volume 9.8 fL Neutrophils (%) (Auto) 94.1 % Lymphocytes (%) (Auto) 3.6 % Monocytes (%) (Auto) 2.0 % Eosinophils (%) (Auto) 0.0 % Basophils (%) (Auto) 0.0 % Neutrophils # (Auto) 10.38 K/uL Lymphocytes # (Auto) 0.40 K/uL Monocytes # (Auto) 0.22 K/uL Eosinophils # (Auto) 0.00 K/uL Basophils # (Auto) 0.00 K/uL RDW Standard Deviation 49.0 fL RDW Coefficient of Variation 13.8 % Immature Granulocyte % (Auto) 0.3 % Immature Granulocyte # (Auto) 0.03 K/uL Prothrombin Time 12.0 SECONDS Prothromb Time International Ratio 1.1 Activated Partial Thromboplast Time 23.7 SECONDS Partial Thromboplastin Ratio 0.9 Sodium Level 142 mmol/L Potassium Level 4.5 mmol/L Chloride Level 105 mmol/L Carbon Dioxide Level 25 mmol/L Anion Gap 12.0 mmol/L 15.0 mmol/L Blood Urea Nitrogen 14 mg/dl Creatinine 1.50 mg/dl Estimated GFR () 59.0 Estimated GFR (Non- 50.9 BUN/Creatinine Ratio 9.2 Random Glucose 81 mg/dl Calcium Level 8.8 mg/dl Total Bilirubin 0.6 mg/dl Direct Bilirubin 0.2 mg/dl Aspartate Amino Transf (AST/SGOT) 47 U/L Alanine Aminotransferase (ALT/SGPT) 25 U/L Alkaline Phosphatase 108 U/L Total Creatine Kinase 579 U/L Total Protein 6.7 gm/dl Albumin 4.1 gm/dl Lipase 46 U/L Salicylates Level 2.6 mg/dl Acetaminophen Level 52 ug/ml Creatine Kinase MB 12.5 ng/ml Creatine Kinase MB Ratio Troponin I 0.021 ng/ml Bedside Hemoglobin 13.3 g/dl Bedside Hematocrit 39 % Bedside Sodium 140 mEq/L Bedside Potassium 4.6 mEq/L Bedside Chloride 102 mEq/L Bedside Total CO2 28 mEq/l Bedside Blood Urea Nitrogen 15 mg/dl Bedside Creatinine 1.3 mg/dl Bedside Glucose (other) 83 mg/dl Bedside Ionized Calcium (Juan Jose) 1.19 mmol/l Test 08/12/16 12:50 08/12/16 12:59 08/12/16 13:18 Urine Color YELLOW Urine Appearance CLEAR Urine pH 5.0 Urine Specific Rogers 1.025 Urine Protein NEG Urine Glucose (UA) NEG Urine Ketones NEG Urine Occult Blood NEG Urine Nitrite NEG Urine Bilirubin NEG Urine Urobilinogen NEG Urine Leukocyte Esterase NEG Urine Opiates Screen POS Urine Methadone, Qualitative NEG Urine Barbiturates NEG Urine Phencyclidine (PCP) Level NEG Ur Amphetamine/Methamphetamine NEG MDMA (Ecstasy) Screen NEG Urine Benzodiazepines Screen NEG Urine Cocaine Metabolite NEG Urine Marijuana (THC) NEG Arterial Blood pH 7.26 Arterial Blood Partial Pressure CO2 59 mmHg Arterial Blood Partial Pressure O2 71 mm/Hg Arterial Blood HCO3 26 mmol/L Arterial Blood Oxygen Saturation 90.8 % Arterial Blood Base Excess -1.5 mEq/L Arterial Blood Gas Delivery 35% Eleazar Test POS Assessment & Plan Neuro: Questionable narcotic Overdose- Narcan given, to which he responded briefly but became unresponsive again intubated Hold on sedation Will need pysch eval Head CT negative Urine tox +'ve for opiates and acetaminophen Depression: Continue Celexa Cardiovascular- stable DLD- continue lipitor Respiratory: Hypercapnic respiratory failure 2/2 possible drug overdose ABG- respiratory acidosis Vent Settings: Tv- 500, Peep 5, FiO2 Plan is to extubate today Chest Xray with questionable pneumonia Patient was started on Levaquin CT chest with severe Emphysematous blebs H/O of COPD/Emphysema- continue Proair, Spiriva, Serevent GI: Stable NPO Protonix not indicated; can be DC'd Mild AST elevation - trend / Electrolytes Electrolytes stable MORRO- Hydration MSK: Mild Rhabdo likely from being immobile/unresponsive Fluids Endo: Normal Blood sugars Heme/Onc Mild Anemia- stable from 2014- could do iron studies ID: Mild elevation in Wbc count Blood cultures pending Questionable pneumonia- Started on Doxy and Zosyn Dispo: ICU Code: Full Resident Physician Supervision Note: Dr. Lilia De Dios was resident physician during care of patient. I separately evaluated patient and did history and exam. I discussed the case with the resident and generally agree with the findings and plan. When I saw the patient is emergency department he was critically ill due to altered sensorium and hypoxic hypercarbic respiratory failure Neuro: Response with yes or no to commands, after extubation was able to an adverse Cardiovascular: Initial troponins unremarkable repeat every 8 pending Respiratory: Significant COPD, able to be extubated upon arrival in unit. Keep sats between 80-92% highly suspect the patient has hypoxic respiratory drive. Concern for possible aspiration, continue antibiotic coverage at this time for possible COPD exacerbation, steroids IV Abdomen: Past bedside swallow study, regular diet ordered and tolerating Renal: Repeat toxicology labs negative,. Respiratory acidosis with chronic renal compensation Infectious disease: Antibiotics for possible aspiration and possible COPD exacerbation Hematology: Prophylaxis Mental health: There is a concern for a possible intentional overdose, I have placed a consult in to mental health.. I have personally spent 55 minutes of critical care time in the direct management of this patient. This is a life/limb threatening event. This includes time spent evaluating patient, direct bedside care, chart review, placing orders, interpretation of diagnostic studies, discussion with consultants, patient, and family members, as well as other required patient management activities. This time is exclusive of all separately billable procedures, and teaching time and separate from and in addition to any other critical care service time Update at 2245 notified of elevated troponins, suspect likely secondary to a KI , questionable myocardial demand during respiratory event. Repeat EKG: Normal axis normal intervals rate 82 normal sinus rhythm, no ST segment changes compared to prior obtained 08/12/2016 at 1310 no change. Patient has been started on a daily aspirin, and given 2.5 mg subcutaneous Arixtra daily, patient 's creatinine clearance is calculated at 56 which requires no dose adjustment per direct care staffer guidelines. Resident Tracking Resident Involvement: Resident Care Provided Care Provided: Adult Hospital Medicine
[2016-08-12] MEDS: SODIUM CHLORIDE 0.9% 1000ML 1,000 ML IV SCH (15:26)
[2016-08-12] MEDS ORDERED: PIPERACILL/TAZOBAC IV 4.5 GM in DEXTROSE 5% 100ML IV ONE (15:30)
[2016-08-12 15:42] LABS: MAGNESIUM 2.3 mg/dl (1.8-2.4); PHOSPHORUS 6.5 mg/dl (2.5-4.9)
[2016-08-12 15:58] LABS: ISTAT ALLEN TEST Pass; ISTAT ARTERIAL BLOOD GAS HCO3 27 meq/L (19-24); ISTAT ARTERIAL BLOOD GAS PCO2 69 mmHg (35-46); ISTAT ARTERIAL BLOOD GAS PO2 77 mmHg (80-95); ISTAT CARBON DIOXIDE 29 mEq/l (24-31); ISTAT DELIVERY SYSTEM Ventilator; ISTAT FIO2 35 %; ISTAT PEEP 5; ISTAT RATE 16; ISTAT SITE L Radial; VE 8; Vt 500
[2016-08-12] MEDS ORDERED: METHYLPREDNISOLONE IV 60 MG in SYRINGE 0 ML IV ONE (16:45)
[2016-08-12] MEDS: DOXYCYCLINE IV 100 MG in DEXTROSE 5% 100ML 100 ML IV SCH (17:24)
[2016-08-12] MEDS: ALBUTEROL HFA 8 GM INHALER INH SCH ×2 (17:28→20:02)
[2016-08-12] MEDS ORDERED: INFLUENZA VIRUS QUAD VACCINE 0.5 ML SYR IM. ONE (18:00)
[2016-08-12] MEDS ORDERED: INFLUENZA ADMINISTRATION CHARGE ONE (18:00)
[2016-08-12] MEDS ORDERED: PIPERACILL/TAZOBAC IV 3.375 GM in DEXTROSE 5% 100ML 100 ML IV SCH (18:00)
[2016-08-12] MEDS: PIPERACILL/TAZOBAC IV 4.5 GM in DEXTROSE 5% 100ML IV SCH (20:01)
[2016-08-12] MEDS: SALMETEROL XINAFOATE 50MCG 28 BLISTER INH INH SCH (20:02)
[2016-08-12] MEDS: METHYLPREDNISOLONE IV 40 MG in SYRINGE 0 ML IV SCH (21:24)
[2016-08-12 22:24] LABS: CKMB/CK RATIO 2.7 (0-3.0)
[2016-08-12] MEDS ORDERED: ASPIRIN 81 MG CHEW PO SCH (22:45)
[2016-08-12] MEDS ORDERED: LACTATED RINGER'S 1000ML 1,000 ML IV ONE (23:00)
[2016-08-12] MEDS ORDERED: NURSING VERBAL MED ORDER STA (23:56)
[2016-08-13] VITALS (17 sets, daily range): BP systolic 126–172; BP diastolic 78–109; PULSE 74–97; TEMP 36.5–37; O2SAT 91–95
[2016-08-13] MEDS: FONDAPARINUX 2.5 MG/0.5 ML SYR SQ SCH ×2 (00:08→08:04)
[2016-08-13] MEDS ORDERED: FONDAPARINUX 2.5 MG/0.5 ML SYR SQ ONE (00:15)
[2016-08-13] MEDS: DOXYCYCLINE IV 100 MG in DEXTROSE 5% 100ML 100 ML IV SCH ×2 (03:45→15:54)
[2016-08-13] MEDS: PIPERACILL/TAZOBAC IV 4.5 GM in DEXTROSE 5% 100ML IV SCH ×3 (05:11→20:46)
[2016-08-13 05:35] LABS: COMPLETE YES; HEMATOCRIT 34.1 % (42-52); IG% 0.2 %; LYMPH % 19.2 %; LYMPH ABS # 0.86 K/uL (1.2-3.4); MEAN CELL VOLUME 95.8 fL (80-100); MEAN CORPUSCULAR HEMOGLOBIN 32.3 pg (25-34); MEAN CORPUSCULAR HGB CONC 33.7 g/dl (32-36); MEAN PLATELET VOLUME 9.9 fL (7.4-10.4); MONO % 8.2 %; NEUT % 72.4 %; PLATELET COUNT 114 K/uL (130-400); RED BLOOD COUNT 3.56 M/uL (4.7-6.1); WHITE BLOOD COUNT 4.49 K/uL (4.8-10.8)
[2016-08-13 06:03] LABS: BUN/CREATININE RATIO 17.8 (10-20); CREATININE 0.93 mg/dl (0.60-1.40); MAGNESIUM 2.2 mg/dl (1.8-2.4); POTASSIUM 4.1 mmol/L (3.5-5.1)
[2016-08-13 06:11] LABS: CHOLESTEROL/HDL RATIO 1.5; CKMB/CK RATIO 3.3 (0-3.0); THYROID STIMULATING HORMONE 0.222 uIu/ml (0.300-4.500)
[2016-08-13] MEDS: ALBUTEROL HFA 8 GM INHALER INH SCH ×4 (08:03→20:00)
[2016-08-13] MEDS: TIOTROPIUM BROMIDE 5 PUFF/90 MCG INH INH SCH (08:03)
[2016-08-13] MEDS: METHYLPREDNISOLONE IV 40 MG in SYRINGE 0 ML IV SCH ×2 (08:03→20:46)
[2016-08-13] MEDS: PANTOprazole INJ 40 MG in SYRINGE 0 ML IV SCH (08:03)
[2016-08-13] MEDS: SALMETEROL XINAFOATE 50MCG 28 BLISTER INH INH SCH ×2 (08:03→20:01)
--- NOTE | 2016-08-13 08:03 | DIAGNOSTIC IMAGING REPORT ---
SINGLE VIEW CHEST CLINICAL HISTORY: Dyspnea. FINDINGS: An AP, portable, upright chest radiograph is compared to chest x-ray and chest CT dated 08/12/2016. The examination is degraded by portable technique and patient rotation. An endotracheal tube has been removed. The heart is mildly enlarged and there is atherosclerotic calcification of the thoracic aorta. The pulmonary vasculature is noncongested. Advanced emphysema and chronic interstitial thickening are similar to previous. There are bibasilar opacities. Apparent asymmetric opacities in the left upper lobe are likely related to right upper lobe blebs/loss of lung parenchyma. There is no large pleural effusion or pneumothorax. The skeletal structures are osteopenic. The bony thorax is grossly intact. IMPRESSION: 1. Cardiomegaly and severe emphysema. 2. Bibasilar opacities are similar to yesterday. This could represent atelectasis versus an infectious/inflammatory pneumonitis. Clinical correlation will be required. 3. The endotracheal tube has been removed. Electronically signed by: Gonzalez Alfred M.D. 08/13/2016 8:02 AM Dictated Date/Time: 08/13/2016 7:59 AM
[2016-08-13] MEDS: ASPIRIN 325 MG ECTAB PO SCH (08:04)
[2016-08-13] MEDS: SODIUM CHLORIDE 0.9% 1000ML 1,000 ML IV SCH ×3 (09:48→18:56)
--- NOTE | 2016-08-13 11:30 | ECHOCARDIOGRAM REPORT ---
*NOTICE TO RECEIVING DEMOCRAT AGENCY This information is strictly Confidential and protected under [place] law. [place] law prohibits you from making any further disclosure of this information unless further disclosure is expressly permitted by the written consent of the person to whom it pertains or is authorized by law. A general authorization for the release of medical or other information is not sufficient for this purpose. Hospital accepts no responsibility if the information is made available to any other person, INCLUDING THE PATIENT. Interpretation Summary * Name: TIANA JIM Study Date: 08/13/2016 08:23 AM BP: 140/81 mmHg * [facility]1 HR: 83 * : 1960 (M/d/yyyy) Gender: Male Height: 70 in * Age: 56 yrs Ethnicity: [place] Weight: 162 lb * Ordering Physician: Az Wakefield * Referring Physician: Self, Referred * Performed By: Tania Talley RCS * * Reason For Study: RESPIRATORY ARREST / ELEVATED TROPONIN * BSA: 1.9 m2 * -- Conclusions -- * The left ventricle is normal in size. * Left ventricular systolic function is normal. * Ejection Fraction = 55-60%. * The right ventricle is normal size. * The right ventricular systolic function is normal. * No significant valvular pathology. Procedure Details * A complete two-dimensional transthoracic echocardiogram was performed (2D, M-mode, Doppler and color flow Doppler). Left Ventricle * The left ventricle is normal in size. * There is normal left ventricular wall thickness. * Left ventricular systolic function is normal. * Ejection Fraction = 55-60%. Right Ventricle * The right ventricle is normal size. * The right ventricular systolic function is normal. Atria * The left atrial size is normal. * Right atrial size is normal. * The interatrial septum is intact with no evidence for an atrial septal defect. Mitral Valve * The mitral valve is grossly normal. * Significant mitral regurgitation is absent. Tricuspid Valve * The tricuspid valve is not well visualized, but is grossly normal. * Significant tricuspid regurgitation is absent. Aortic Valve * The aortic valve is normal in structure and function. Pulmonic Valve * The pulmonic valve is not well visualized. Great Vessels * The aortic root and proximal ascending aorta are normal sized. Pericardium/Pleural * There is no pericardial effusion. MMode 2D Measurements and Calculations IVSd 1.2 cm IVSs 1.6 cm LVIDd 4.3 cm LVIDs 2.9 cm LVPWd 0.93 cm LVPWs 1.4 cm IVS/LVPW 1.3 FS 32.2 % EDV(Teich) 82.3 ml ESV(Teich) 32.4 ml EF(Teich) 60.7 % EDV(cubed) 78.6 ml ESV(cubed) 24.5 ml EF(cubed) 68.8 % % IVS thick 25.6 % % LVPW thick 52.8 % LV mass(C)d 158.4 grams LV mass(C)dI 83.0 grams/m\S\2 LV mass(C)s 149.1 grams LV mass(C)sI 78.1 grams/m\S\2 SV(Teich) 49.9 ml SI(Teich) 26.2 ml/m\S\2 SV(cubed) 54.1 ml SI(cubed) 28.3 ml/m\S\2 Ao root diam 3.9 cm Ao root area 12.1 cm\S\2 LA dimension 2.6 cm LA/Ao 0.66 LVOT diam 2.1 cm LVOT area 3.4 cm\S\2 LVAd ap4 40.5 cm\S\2 LVLd ap4 9.3 cm EDV(MOD-sp4) 143.1 ml EDV(sp4-el) 150.3 ml LVAs ap4 20.9 cm\S\2 LVLs ap4 6.6 cm ESV(MOD-sp4) 54.1 ml ESV(sp4-el) 56.0 ml EF(MOD-sp4) 62.2 % EF(sp4-el) 62.8 % LVAd ap2 38.8 cm\S\2 LVLd ap2 9.1 cm EDV(MOD-sp2) 139.1 ml EDV(sp2-el) 140.8 ml LVAs ap2 23.3 cm\S\2 LVLs ap2 7.0 cm ESV(MOD-sp2) 64.4 ml ESV(sp2-el) 65.7 ml EF(MOD-sp2) 53.7 % EF(sp2-el) 53.4 % LVLd %diff -1.95 % EDV(MOD-bp) 142.6 ml LVLs %diff 5.4 % ESV(MOD-bp) 60.6 ml EF(MOD-bp) 57.5 % SV(MOD-sp4) 89.0 ml SI(MOD-sp4) 46.6 ml/m\S\2 SV(MOD-sp2) 74.7 ml SI(MOD-sp2) 39.1 ml/m\S\2 SV(MOD-bp) 82.0 ml SI(MOD-bp) 43.0 ml/m\S\2 SV(sp4-el) 94.3 ml SI(sp4-el) 49.4 ml/m\S\2 SV(sp2-el) 75.1 ml SI(sp2-el) 39.4 ml/m\S\2 Doppler Measurements and Calculations MV E max zee 93.3 cm/sec MV A max zee 71.7 cm/sec MV E/A 1.3 MV P1/2t max zee 101.9 cm/sec MV P1/2t 73.8 msec MVA(P1/2t) 3.0 cm\S\2 MV dec slope 404.5 cm/sec\S\2 MV dec time 0.16 sec Ao V2 max 134.8 cm/sec Ao max PG 7.3 mmHg Ao max PG (full) 3.8 mmHg ASIF(V,A) 2.3 cm\S\2 ASIF(V,D) 2.3 cm\S\2 LV V1 max PG 3.4 mmHg LV V1 max 92.7 cm/sec MR max zee 546.8 cm/sec MR max PG 119.6 mmHg PA V2 max 97.7 cm/sec PA max PG 3.8 mmHg
[2016-08-13] MEDS: MoRPHine SULFATE 2 MG/ML CARP IV PRN ×4 (11:57→21:21)
--- NOTE | 2016-08-13 15:08 | CONSULTATION REPORT ---
DATE OF CONSULTATION: 08/13/2016 DATE OF CONSULTATION: 08/13/2016. IDENTIFYING DATA: Mike Saunders is a 56-year-old gentleman from [place], [place], admitted to the ICU after having been found unresponsive at home by a neighbor. Information today is gathered from the patient and considered to be reliable. CHIEF COMPLAINT: "I have a lot of neck pain and breathing problems so I lay around on the couch and watch TV alot." HISTORY OF PRESENT ILLNESS: Mike Saunders is a 56-year-old gentleman with medical conditions including severe COPD on continuous O2, chronic bilateral low back pain, sciatica, neck pain, tobacco use disorder, psoriasis, BPH, hypertension and history of respiratory failure, who was found unresponsive at home. The records indicate that the had reported he was somewhat restless and talking to himself the night prior to admission. She thought perhaps he had taken extra pain medications. The last thing the patient remembers was saying goodbye to his at 6:30 in the morning when he went to work. He remembers nothing after that but was told that a neighbor came to the house and found him unconscious on the floor. The patient says that he is not depressed, not suicidal, did not intentionally overdose on medications. He says it is possible that he was confused, in a state of hypoxia and could have taken extra medications. He indicates that he does find at home, although he has little activity other than lying on the couch watching TV and taking care of himself. He admits that he gets "thrown off" by little things that happen, such as spilling something on the floor or having sink break the day before admission. He denies that he has been depressed or that these things have caused him to feel like life is not worth living. He says his mood in recent weeks has been "normal", denies being sad or depressed. He denies being a chronically anxious person, although he says he can get upset and anxious about things intermittently. He says his appetite recently has been down. He denies that he has been feeling hopeless about his circumstances. He reports chronic low energy. He denies panic attacks. He denies symptoms of other mental illness. CURRENT MEDICATIONS: 1. Protonix. 2. Spiriva inhaler. 3. Arixtra 2.5 mg daily. 4. Aspirin 325 mg q.a.m. 5. Methylprednisolone b.i.d. 6. Serevent Diskus 1 puff b.i.d. 7. Piperacillin/tazobactam q. 8 hours. 8. Doxycycline q. 12 hours. 9. Ativan 1 mg q. 6 hours p.r.n. anxiety. 10. Nitrostat p.r.n. 11. Morphine 2 mg q. 2 hours p.r.n. pain. 12. Albuterol inhaler 2 puffs 4 times daily. PAST PSYCH HISTORY: The patient denies ever having seen a mental health professional. He has never been hospitalized for mental health reasons. He denies ever having made a suicide attempt. There is no evidence of violence to self or others in the last 6 months. PRIOR MEDICATION TRIALS: None. PAST MEDICAL HISTORY: 1. COPD on continuous oxygen. 2. BPH. 3. Dyslipidemia. 4. Hypertension. 5. Tobacco use disorder, currently smoking 2 packs per day. 6. Psoriasis. 7. History of a benign neoplasm of colon. 8. History of alpha 1 antitrypsin deficiency. 9. History of a lot of concussions from falls, but without any history for seizures. 10. No history of IV drug use. FAMILY HISTORY: Denies for psychiatric issues, substance use or suicide. SUBSTANCE USE HISTORY: The patient admits to a remote use of alcohol and does not see that it was ever a problem for him. He has never had any legal problems because of substances nor been in substance use treatment. He denies use of street drugs, organic substances, inhalants, or abuse of over the counter medicines in the last year. He does admit that he occasionally may take an extra pain medication. PERSONAL HISTORY: The patient has a 12th grade education. 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 He is , has 1 daughter. He denies legal issues. Psychological trauma history is denied. MENTAL STATUS EXAMINATION: A 56-year-old gentleman who looks somewhat older than his stated age, is seated in his ICU bed with oxygen by nasal cannula. He is attempting to eat his lunch at the time of the interview. He is alert and cooperative. Eye contact is appropriate. Motor behavior is unremarkable. He presents with some kyphosis and forward leaning of his neck. His speech is of normal rate, volume, and tone. Affect is blunted. Mood is "normal." He denies thought disorder in the form of hallucinations or delusions. He denies thoughts, plans, or intent to harm himself or anyone else. Today, he is fully oriented. Memory functions are intact with the exception of the period following becoming unresponsive. His fund of knowledge is intact. His intelligence is estimated to be average. Insight and judgment are limited. VITAL SIGNS: Temp 37.0, pulse 87, respirations 18, blood pressure 152/89, pulse ox 92% on 2 liters. LABORATORIES: 1. CBC with diff -- notable for WBCs 4.49, RBCs 3.56, hemoglobin 11.5, hematocrit 34.1, platelet count low at 114,000. 2. Chem profile -- notable for glucose elevated at 181 and 192, elevated CK, elevated troponin last 0.105. 3. TSH -- low at 0.222, but normal thyroxine 6.6. 4. Toxicology -- positive for opiates and Tylenol. 5. Urinalysis -- without evidence of infection. 6. Coag studies -- within normal limits. 7. Hepatitis C antibody screening positive. REVIEW OF SYSTEMS: Positive for complaints of shortness of breath and need for continuous oxygen, fatigue. PHYSICAL EXAMINATION: As per Dr. De Dios . IMPRESSION: A 56-year-old gentleman admitted to the hospital after being found by a neighbor unresponsive. The patient denies that his mood has been in any way depressed and denies that he has been suicidal or intentionally took an overdose. The daughter has brought in his medication bottles and he had Percocet filled on 08/05/2016 for 180 pills and oxycodone for 240 pills. The patient consumed 166 Percocet and 155 oxycodone in 8 days. This lends itself to seeing unresponsiveness as an opiate overdose. I recommend that opiates be secured by the daughter and the patient not be allowed access to them during the day. I do not see that there is a mental health diagnosis here other than opiate dependence and abuse. He does not meet criteria for inpatient mental health treatment. DIAGNOSES: 1. Opiate dependence/overdose. -- Recommend narcotics be secured by a third alliance party and patient not allowed access to them. 2. Unresponsiveness. -- This does not appear to be related to depression or suicidality, but to opiate overdose. Therefore, he meets no criteria for inpatient mental health treatment. I would recommend substance abuse treatment; however, he has got many conditions that will require chronic pain management. I do not see it possible for him to be weaned off of this. I would, however, recommend that the primary team be in contact with his pain management provider, Dr. Shaji Hidalgo, who prescribed his narcotics on the . It may behoove them to prescribe fewer quantities, 1 week at a time in addition to having a third person secure them. We thank you for allowing us to participate in this man's care. SHANON
--- NOTE | 2016-08-13 17:20 | Progress Note ---
Subjective Date of Service: Aug 13, 2016. Subjective Pt evaluation today including: conversation w/ patient, physical exam, lab review, review of studies, conversation w/ cost consultant, review of inpatient medication list Saw/examined the patient in room 102 This is a 56 year old gentleman with a history of severe COPD on home oxygen but noncompliant with this, chronic 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 , on long-term narcotic use - follows with pain management - presents due to unresponsiveness, likely from overdose of opioids. Patient states that he had trouble breathing and became confused and does not recall taking too many opioids. He was given Narcan in the ER with some responsiveness, but then became unresponsive again, and required intubation. Was in the ICU and was extubated late afternoon on 08/12 - doing well now, denies intentionally overdosing on opioids, denies suicidal ideation. +chest pressure +shortness of breath at baseline no increased work of breathing, no accessory muscle use Review of Systems Constitutional: No fever Respiratory: + dyspnea at rest, + dyspnea on exertion, + shortness of breath, + wheezing, No cough, No hemoptysis, No sputum Cardiac: + chest pain, No PND, No edema, No orthopnea, No palpitations Abdomen: No GI bleeding, No constipation, No diarrhea, No nausea, No pain, No vomiting Musculoskeletal: No joint pain Male : No dysuria, No urinary frequency Heme: No abnormal bleeding/bruising Medications Current Inpatient Medications Medications (Trade) Dose Ordered Sig/Margarita Route Start Time Stop Time Status Last Admin Dose Admin Ioversol 125 ml 125 ml UD PRN IV 08/12/16 12:00 08/16/16 11:59 Sodium Chloride (Nss 1000ml) 1,000 ml @ 100 mls/hr Q10H IV 08/12/16 13:00 09/11/16 12:59 08/13/16 09:48 100 MLS/HR Lorazepam (Ativan Inj) 1 mg Q6H PRN IV 08/12/16 13:00 09/11/16 12:59 Nitroglycerin (Nitrostat Tab) 0.4 mg UD PRN SL 08/12/16 13:00 09/11/16 12:59 Ondansetron HCl 4 mg 4 mg Q6H PRN IV 08/12/16 13:00 09/11/16 12:59 Pantoprazole Sodium/Syringe (Protonix Inj/ Syringe) 10 ml @ 5 mls/min DAILY IV 08/13/16 09:00 09/12/16 08:59 08/13/16 08:03 5 MLS/MIN Morphine Sulfate (MoRPHine SULFATE INJ) 2 mg Q2H PRN IV 08/12/16 13:00 08/26/16 12:59 08/13/16 16:00 2 MG Albuterol (Ventolin Hfa Inhaler) 2 puffs QID INH 08/12/16 13:00 09/11/16 12:59 08/13/16 16:30 2 PUFFS Salmeterol Xinafoate (Serevent Diskus Inh) 1 puffs BID INH 08/12/16 21:00 09/11/16 20:59 08/13/16 08:03 1 PUFFS Tiotropium [place] 1 puff 1 puff DAILY INH 08/13/16 09:00 09/12/16 08:59 08/13/16 08:03 1 PUFF Doxycycline Hyclate/Dextrose (Vibramycin IV/ D5 100ml) 110 ml @ 50 mls/hr Q12H IV 08/12/16 16:00 08/19/16 15:59 08/13/16 15:54 50 MLS/HR Piperacillin Sod/ Tazobactam Sod 1 ea 1 ea UD PRN N/A 08/12/16 14:45 09/11/16 14:44 Piperacillin Sod/ Tazobactam Sod 4.5 gm/Dextrose 120 ml @ 30 mls/hr Q8H IV 08/12/16 21:00 08/19/16 14:59 08/13/16 13:35 30 MLS/HR Methylprednisolone Sodium Succinate/ Syringe (Solu-Medrol IV/ Syringe) 0.64 ml @ 1.5 mls/min BID IV 08/12/16 22:00 09/11/16 21:59 08/13/16 08:03 1.5 MLS/MIN Fondaparinux (Arixtra Inj) 2.5 mg DAILY SQ 08/13/16 09:00 08/20/16 09:01 08/13/16 08:04 2.5 MG Aspirin (Ecotrin Tab) 325 mg QAM PO 08/13/16 09:00 09/12/16 08:59 08/13/16 08:04 325 MG Objective Vital Signs Date Time Temp Pulse Resp B/P Pulse Ox O2 Delivery O2 Flow Rate FiO2 08/13/16 16:00 92 Nasal Cannula 2.0 08/13/16 16:00 36.7 97 20 151/96 92 Nasal Cannula 2.0 08/13/16 12:00 92 Nasal Cannula 2.0 08/13/16 12:00 37.0 87 18 152/89 92 Nasal Cannula 2.0 08/13/16 08:00 93 Nasal Cannula 2.0 08/13/16 08:00 36.7 80 18 140/81 93 Nasal Cannula 2.0 08/13/16 06:58 93 14 140/81 93 08/13/16 06:01 74 15 129/89 91 08/13/16 06:00 36.5 08/13/16 04:58 77 10 130/83 92 08/13/16 04:00 92 Nasal Cannula 2.0 08/13/16 03:58 78 12 126/86 93 08/13/16 02:58 78 15 129/78 94 08/13/16 01:58 83 15 130/80 92 08/13/16 00:58 93 14 130/88 91 08/13/16 00:01 36.7 08/12/16 23:59 91 Nasal Cannula 2.0 08/12/16 23:58 85 20 136/86 91 08/12/16 22:00 94 19 148/95 90 Nasal Cannula 3.0 08/12/16 20:00 91 Nasal Cannula 3.0 08/12/16 20:00 36.8 82 13 135/87 90 Nasal Cannula 3.0 08/12/16 18:02 82 14 116/75 93 Nasal Cannula 3.0 Physical Exam General Appearance: no apparent distress, + pertinent finding Respiratory/Chest: no respiratory distress, no accessory muscle use, + decreased breath sounds, + wheezing Cardiovascular: regular rate, rhythm, no edema, no murmur Abdomen: normal bowel sounds, non tender, soft Extremities: normal inspection, no pedal edema Neurologic/Psychiatric: body and fender worker II-XII nml as tested, no motor/sensory deficits, alert, normal mood/affect, oriented x 3, + pertinent finding (slowed responses) Skin: normal color Lymphatic: no adenopathy Laboratory Results Last 24 Hours Test 08/12/16 21:15 08/12/16 21:41 08/13/16 05:15 Total Creatine Kinase 261 U/L 151 U/L Creatine Kinase MB 7.0 ng/ml 5.0 ng/ml Creatine Kinase MB Ratio 2.7 3.3 Troponin I 0.148 ng/ml 0.105 ng/ml Bedside Glucose 105 mg/dl 192 mg/dl White Blood Count 4.49 K/uL Red Blood Count 3.56 M/uL Hemoglobin 11.5 g/dL Hematocrit 34.1 % Mean Corpuscular Volume 95.8 fL Mean Corpuscular Hemoglobin 32.3 pg Mean Corpuscular Hemoglobin Concent 33.7 g/dl Platelet Count 114 K/uL Mean Platelet Volume 9.9 fL Neutrophils (%) (Auto) 72.4 % Lymphocytes (%) (Auto) 19.2 % Monocytes (%) (Auto) 8.2 % Eosinophils (%) (Auto) 0.0 % Basophils (%) (Auto) 0.0 % Neutrophils # (Auto) 3.25 K/uL Lymphocytes # (Auto) 0.86 K/uL Monocytes # (Auto) 0.37 K/uL Eosinophils # (Auto) 0.00 K/uL Basophils # (Auto) 0.00 K/uL RDW Standard Deviation 47.3 fL RDW Coefficient of Variation 13.6 % Immature Granulocyte % (Auto) 0.2 % Immature Granulocyte # (Auto) 0.01 K/uL Sodium Level 139 mmol/L Potassium Level 4.1 mmol/L Chloride Level 103 mmol/L Carbon Dioxide Level 29 mmol/L Anion Gap 7.0 mmol/L Blood Urea Nitrogen 17 mg/dl Creatinine 0.93 mg/dl Est Creatinine Clear Calc Drug Dose 90.5 ml/min Estimated GFR () 105.2 Estimated GFR (Non- 90.8 BUN/Creatinine Ratio 17.8 Random Glucose 181 mg/dl Calcium Level 8.0 mg/dl Magnesium Level 2.2 mg/dl Total Bilirubin 0.3 mg/dl Direct Bilirubin 0.1 mg/dl Aspartate Amino Transf (AST/SGOT) 27 U/L Alanine Aminotransferase (ALT/SGPT) 24 U/L Alkaline Phosphatase 84 U/L Total Protein 5.1 gm/dl Albumin 3.0 gm/dl Triglycerides Level 59 mg/dl Cholesterol Level 113 mg/dl HDL Cholesterol 75 mg/dl LDL Cholesterol, Calculated 26 mg/dl VLDL Cholesterol, Calculated 12 mg/dl Cholesterol/HDL Ratio 1.5 Thyroid Stimulating Hormone (TSH) 0.222 uIu/ml Thyroxine (T4) 6.6 mcg/dl Assessment and Plan This is a 56 year old gentleman with a history of severe COPD on home oxygen but noncompliant with this, chronic 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 , on long-term narcotic use - follows with pain management - presents due to unresponsiveness, likely from overdose of opioids Acute Hypercapnic/Hypoxic Respiratory Failure secondary to Opioid Overdose patient took too many narcotic pain medications he is on these long-term and follows with pain management presented with unresponsiveness ABGs performed, showing respiratory acidosis was intubated due to unresponsiveness extubated on 08/13 - doing better now appreciate shelter supervisor input appreciate psych input - patient should NOT be given high quantities of narcotics at a time Pneumonia Community acquired vs. aspiration CXR performed showing Bibasilar opacities are similar to yesterday. This could represent atelectasis versus an infectious/inflammatory pneumonitis. started on Zosyn for anaerobic coverage as well as doxycycline Severe Emphysema and Ongoing Tobacco Use patient smokes 1PPD Patient is supposed to be on home O2 at least intermittently, but is noncompliant for now we will do antibiotics as above Solu-medrol 40mg BID - which we should continue nebulizers as needed continue O2 - should have two step prior to discharge Troponin Elevation This is more likely due to demand ischemia no cardiac history, no significant EKG changes monitor on tele for now Acute Kidney Injury, resolved creat on admission 1.5 given IVFs likely secondary to mild rhabdo now resolved DVT ppx Arixtra FULL CODE
[2016-08-14] VITALS (8 sets, daily range): BP systolic 131–189; BP diastolic 87–128; PULSE 82–121; TEMP 36.3–36.8; O2SAT 91–96
[2016-08-14] MEDS: MoRPHine SULFATE 2 MG/ML CARP IV PRN ×4 (02:16→10:12)
[2016-08-14] MEDS: DOXYCYCLINE IV 100 MG in DEXTROSE 5% 100ML 100 ML IV SCH (03:33)
[2016-08-14] MEDS: PIPERACILL/TAZOBAC IV 4.5 GM in DEXTROSE 5% 100ML IV SCH (05:37)
[2016-08-14] MEDS: SODIUM CHLORIDE 0.9% 1000ML 1,000 ML IV SCH (05:37)
[2016-08-14 07:13] LABS: COMPLETE YES; IG% 0.2 %; LYMPH % 17.2 %; LYMPH ABS # 0.85 K/uL (1.2-3.4); MEAN CELL VOLUME 93.5 fL (80-100); MEAN CORPUSCULAR HEMOGLOBIN 31.7 pg (25-34); MEAN CORPUSCULAR HGB CONC 33.8 g/dl (32-36); MEAN PLATELET VOLUME 10.4 fL (7.4-10.4); MONO % 9.9 %; NEUT % 72.7 %; PLATELET COUNT 119 K/uL (130-400); RED BLOOD COUNT 4.17 M/uL (4.7-6.1); WHITE BLOOD COUNT 4.95 K/uL (4.8-10.8)
[2016-08-14 08:00] LABS: BUN/CREATININE RATIO 16.5 (10-20); CALCIUM 8.8 mg/dl (8.5-10.1); CREATININE 0.74 mg/dl (0.60-1.40); POTASSIUM 3.4 mmol/L (3.5-5.1)
[2016-08-14] MEDS ORDERED: LORAZEPAM INJ 1 MG in SYRINGE 0.5 ML IV PRN (08:15)
--- NOTE | 2016-08-14 09:14 | DIAGNOSTIC IMAGING REPORT ---
CHEST ONE VIEW PORTABLE CLINICAL HISTORY: Infiltrate. COMPARISON STUDY: Chest CT August 12, 2016 and chest radiograph August 13, 2016. FINDINGS: Severe emphysema is noted. There is no pneumothorax. Cardiomediastinal silhouette is within normal limits. Lower lung interstitial thickening and mild opacities persist. IMPRESSION: 1. Severe emphysema. 2. No change in lower lung interstitial thickening and mild opacities. Atelectasis is favored although an infectious process could appear similar. Electronically signed by: Donaldo Mar M.D. 08/14/2016 9:13 AM Dictated Date/Time: 08/14/2016 8:18 AM
[2016-08-14] MEDS: ALBUTEROL HFA 8 GM INHALER INH SCH ×4 (09:57→19:44)
[2016-08-14] MEDS: PANTOprazole INJ 40 MG in SYRINGE 0 ML IV SCH (09:57)
[2016-08-14] MEDS: METHYLPREDNISOLONE IV 40 MG in SYRINGE 0 ML IV SCH (09:57)
[2016-08-14] MEDS: TIOTROPIUM BROMIDE 5 PUFF/90 MCG INH INH SCH (09:57)
[2016-08-14] MEDS: ASPIRIN 325 MG ECTAB PO SCH (09:58)
[2016-08-14] MEDS: FONDAPARINUX 2.5 MG/0.5 ML SYR SQ SCH (09:58)
[2016-08-14] MEDS: SALMETEROL XINAFOATE 50MCG 28 BLISTER INH INH SCH ×2 (09:58→19:40)
[2016-08-14] MEDS ORDERED: HydrALAZINE HCL 20 MG/ML VIAL ONE (11:59)
[2016-08-14] MEDS ORDERED: HydrALAZINE HCL 20 MG/ML VIAL IV. PRN (12:00)
--- NOTE | 2016-08-14 12:09 | Psychiatric Progress Notes ---
Psychiatric Progress Note Date of Service Aug 14, 2016. Notes ID: Patient reviewed with liaison nurse and ALEC Neumann. Initial consult completed on 08/13. CC: "I would never harm myself intentionally" HPI: seen with daughter at bedside and then met with daughter separately. She expressed concerns about the amount of pain meds her father is prescribed. She plans to keep meds at her home (few blocks away) and only give 2 day supply to mother. She will take responsibility to remove the hand gun that she believes is in mother's home prior to his return since history of altered mental status. She agrees that dad not suicidal but wants to know best way to get him help if again becomes altered as he has refused to go with ambulance crew before. She is aware of [facility] and [facility] procedures. She states that given this incident she would be interested in family having access to intranasal narcan but again ideally he would have pain contract, etc. ROS: denied physical complaints MSE: alert, cooperative, affect broad, thoughts organized, NO SI/HI/cruz. Imp: opiate OD--not a suicide attempt Plan: liaison to communicate conversation with daughter to primary medical team as more about pain management moy, defer to prescriber of opiates re: intranasal narcan he is declining therapy as doesn't view self as addicted, agree won't be able to participate in outpatient D&A groups as chronic pain med dependent, therapy supports can be readdressed on context of pain clinic.
[2016-08-14] MEDS ORDERED: POTASSIUM CHLORIDE 10 MEQ TABCR PO STA (12:25)
--- NOTE | 2016-08-14 16:24 | Progress Note ---
Internal Med Progress Note Date of Service: Aug 14, 2016. Provider Documentation: SUBJECTIVE: was sleeping most part of the day found awake but appears to be groggy denies of SOB , has non productive cough no fever or chills requesting pain medications to increased OBJECTIVE: Vital Signs-as noted below Exam: General-chronically ill appearing , no apparent distress, appears to be groggy .answers questions appropriately Eyes-sclera non icteric ENT-NAD Neck-no JVD , no thyromegaly Lungs-diminished , no rales or wheeze Heart-regular S1/S2 Abdomen-soft, non tender Extremities-no lower ext edema Neuro-no focal deficit Lab data as noted below. ASSESSMENT & PLAN: Acute Hypercapnic/Hypoxic Respiratory Failure secondary to Opioid Overdose patient took too many narcotic pain medications-un intentionally found unresponsive required brief period of intubation /mechanical ventilation for respiratory failure extubated on 08/13 currently respiratory status to baseline hx of long-term pain medication dependency ( since age 27 as per patient ) follows with pain management in [place] pain management consulted for adjustment of Narcotic pain meds and possible recommendation for transition to non Narcotic , no sedative pain meds Pneumonia concern for aspiration given period of unresponsiveness CXR performed showing Bibasilar opacities could represent atelectasis versus an infectious/inflammatory pneumonitis. treated on IV Zosyn cont on doxycycline Severe Emphysema and Ongoing Tobacco Use patient smokes 1PPD on home 02 taper down IV Steroid , started on PO Prednisone taper nebulizers as needed Troponin Elevation This is more likely due to demand ischemia no cardiac history, no significant EKG changes ECHO no wall motion abnormality D/c Aspirin , Arixtra Acute Kidney Injury, resolved creat on admission 1.5 due to dehydration resolved with IV hydration FULL CODE DVT PROPHYLAXIS D/c Arixtra sub q heparin DISPOSITION to be determined PT/OT eval requested updated Angelique Saunders over the phone Vital Signs: Date Time Temp Pulse Resp B/P Pulse Ox O2 Delivery O2 Flow Rate FiO2 08/14/16 16:11 36.8 82 17 150/95 96 Nasal Cannula 3.0 08/14/16 16:00 Nasal Cannula 2.0 08/14/16 13:11 121 131/87 91 Nasal Cannula 2.0 08/14/16 12:00 84 162/103 08/14/16 12:00 Nasal Cannula 2.0 08/14/16 11:55 36.5 89 16 184/116 95 Nasal Cannula 2.0 08/14/16 10:10 83 163/108 08/14/16 08:00 92 Nasal Cannula 2.0 08/14/16 08:00 36.3 82 16 189/128 92 Nasal Cannula 2.0 08/14/16 05:13 36.3 86 18 160/102 96 2.0 08/14/16 04:00 Nasal Cannula 2.0 08/14/16 00:07 36.5 89 16 167/96 91 3.0 08/14/16 00:00 Nasal Cannula 2.0 08/13/16 20:54 154/98 08/13/16 19:58 36.7 87 18 172/101 94 2.0 Lab Results: Results Past 24 Hours Test 08/13/16 20:32 08/14/16 06:33 08/14/16 12:43 08/14/16 12:53 Range/Units Bedside Glucose 152 70-99 mg/dl White Blood Count 4.95 4.8-10.8 K/uL Red Blood Count 4.17 4.7-6.1 M/uL Hemoglobin 13.2 14.0-18.0 g/dL Hematocrit 39.0 42-52 % Mean Corpuscular Volume 93.5 80-100 fL Mean Corpuscular Hemoglobin 31.7 25-34 pg Mean Corpuscular Hemoglobin Concent 33.8 32-36 g/dl Platelet Count 119 130-400 K/uL Mean Platelet Volume 10.4 7.4-10.4 fL Neutrophils (%) (Auto) 72.7 % Lymphocytes (%) (Auto) 17.2 % Monocytes (%) (Auto) 9.9 % Eosinophils (%) (Auto) 0.0 % Basophils (%) (Auto) 0.0 % Neutrophils # (Auto) 3.60 1.4-6.5 K/uL Lymphocytes # (Auto) 0.85 1.2-3.4 K/uL Monocytes # (Auto) 0.49 0.11-0.59 K/uL Eosinophils # (Auto) 0.00 0-0.5 K/uL Basophils # (Auto) 0.00 0-0.2 K/uL RDW Standard Deviation 46.0 36.4-46.3 fL RDW Coefficient of Variation 13.7 11.5-14.5 % Immature Granulocyte % (Auto) 0.2 % Immature Granulocyte # (Auto) 0.01 0.00-0.02 K/uL Sodium Level 140 136-145 mmol/L Potassium Level 3.4 3.5-5.1 mmol/L Chloride Level 103 98-107 mmol/L Carbon Dioxide Level 28 21-32 mmol/L Anion Gap 9.0 3-11 mmol/L Blood Urea Nitrogen 12 7-18 mg/dl Creatinine 0.74 0.60-1.40 mg/dl Est Creatinine Clear Calc Drug Dose 113.7 ml/min Estimated GFR () 118.7 Estimated GFR (Non- 102.4 BUN/Creatinine Ratio 16.5 10-20 Random Glucose 128 70-99 mg/dl Calcium Level 8.8 8.5-10.1 mg/dl Magnesium Level 2.0 1.8-2.4 mg/dl Total Bilirubin 0.6 0.2-1 mg/dl Direct Bilirubin 0.2 0-0.2 mg/dl Aspartate Amino Transf (AST/SGOT) 17 15-37 U/L Alanine Aminotransferase (ALT/SGPT) 25 12-78 U/L Alkaline Phosphatase 100 45-117 U/L Total Protein 6.4 6.4-8.2 gm/dl Albumin 3.6 3.4-5.0 gm/dl Hepatitis B Surface Antigen NEG NEG Hepatitis C Antibody PRELIM POS NEG
[2016-08-14] MEDS ORDERED: OXYCODONE/ACETAMINOPHEN 5-325 TAB PO PRN (17:45)
[2016-08-14] MEDS: OXYCODONE/ACETAMINOPHEN 5-325 TAB PO PRN ×2 (19:38→23:44)
[2016-08-14] MEDS: DOXYCYCLINE HYCLATE 100 MG CAP PO SCH (19:40)
[2016-08-14] MEDS ORDERED: CITALOPRAM 20 MG TAB PO SCH (21:00)
[2016-08-14] MEDS: FLUTICASONE HFA 220 MCG INHALER INH SCH (21:22)
[2016-08-14] MEDS: HEPARIN SOD 5000 UNIT/0.5 ML CARP SQ SCH (21:25)
[2016-08-15 00:19] VITALS: BP 142/98; PULSE 69; TEMP 36.7; O2SAT 95
[2016-08-15] MEDS: OXYCODONE/ACETAMINOPHEN 5-325 TAB PO PRN ×3 (04:37→12:25)
[2016-08-15 07:21] VITALS: BP 137/84; PULSE 93; TEMP 36.8; O2SAT 98
[2016-08-15 07:22] LABS: HEMATOCRIT 42.1 % (42-52); MEAN CELL VOLUME 93.3 fL (80-100); MEAN CORPUSCULAR HEMOGLOBIN 32.4 pg (25-34); MEAN CORPUSCULAR HGB CONC 34.7 g/dl (32-36); MEAN PLATELET VOLUME 10.8 fL (7.4-10.4); PLATELET COUNT 113 K/uL (130-400); RED BLOOD COUNT 4.51 M/uL (4.7-6.1); WHITE BLOOD COUNT 6.04 K/uL (4.8-10.8)
[2016-08-15 07:24] VITALS: BP 146/97; PULSE 77; TEMP 36.4; O2SAT 96
[2016-08-15] MEDS ORDERED: PANTOprazole SOD 40 MG TAB PO SCH (08:00)
[2016-08-15 08:01] LABS: BLOOD UREA NITROGEN 12 mg/dl (7-18); BUN/CREATININE RATIO 15.1 (10-20); CALCIUM 9.2 mg/dl (8.5-10.1); CARBON DIOXIDE 26 mmol/L (21-32); CHLORIDE 100 mmol/L (98-107); GLUCOSE 162 mg/dl (70-99); MAGNESIUM 1.9 mg/dl (1.8-2.4); POTASSIUM 3.2 mmol/L (3.5-5.1); SODIUM 137 mmol/L (136-145)
[2016-08-15 08:05] LABS: CKMB/CK RATIO 3.6 (0-3.0)
[2016-08-15] MEDS: SALMETEROL XINAFOATE 50MCG 28 BLISTER INH INH SCH (08:47)
[2016-08-15] MEDS: FLUTICASONE HFA 220 MCG INHALER INH SCH (08:47)
[2016-08-15] MEDS: ALBUTEROL HFA 8 GM INHALER INH SCH ×2 (08:48→12:23)
[2016-08-15] MEDS: TIOTROPIUM BROMIDE 5 PUFF/90 MCG INH INH SCH (08:48)
[2016-08-15] MEDS: DOXYCYCLINE HYCLATE 100 MG CAP PO SCH (08:50)
[2016-08-15] MEDS: HEPARIN SOD 5000 UNIT/0.5 ML CARP SQ SCH (08:53)
[2016-08-15] MEDS ORDERED: METHYLPREDNISOLONE IV 40 MG in SYRINGE 0 ML IV SCH (09:00)
[2016-08-15] MEDS ORDERED: POTASSIUM CHLORIDE 10 MEQ TABCR PO ONE (13:00)
[2016-08-15] MEDS ORDERED: DXY100 PO (14:17)
--- NOTE | 2016-08-15 14:22 | Discharge Instructions ---
Discharge Instructions Admission Reason for Admission: Unresponsive State Discharge Discharge Diagnosis / Problem: NAROTIC /PAIN MEDICATION OVERDOSE /ACUTE ON CHRONIC RESPIRATORY FAILURE Discharge Goals Goal(s): Improve disease control, Diagnostic testing, Therapeutic intervention Activity Recommendations Activity Limitations: resume your previous activity . Instructions / Follow-Up Instructions / Follow-Up HOSPITAL FOLLOW UP ON 08/21/2016 @ 10:[address] Howard Myers MD Merged With [facility] Current Hospital Diet Patient's current hospital diet: Regular Diet Discharge Diet Recommended Diet: Regular Diet Pending Studies Studies pending at discharge: no Laboratory Results Lipid Panel Test 08/13/16 05:15 Range/Units Triglycerides Level 59 0-150 mg/dl Cholesterol Level 113 0-200 mg/dl HDL Cholesterol 75 mg/dl Cholesterol/HDL Ratio 1.5 LDL Cholesterol, Calculated 26 mg/dl Medical Emergencies . Who to Call and When: Medical Emergencies: If at any time you feel your situation is an emergency, please call 911 immediately. . Non-Emergent Contact Non-Emergency issues call your: Primary Care Provider . . "Provider Documentation" section prepared by Alessia Diamond. VTE Core Measure Inpt VTE Proph given/why not?: Unfractionated heparin SQ
[2016-08-15 14:45] VITALS: BP 146/97; PULSE 77; TEMP 36.4; O2SAT 96
--- NOTE | 2016-08-15 16:31 | Progress Note ---
Internal Med Progress Note Date of Service: Aug 15, 2016. Provider Documentation: SUBJECTIVE: awake and alert denies of any pain or discomfort very eager to be discharged home present at bedside had long conversation regarding narcotic pain medication dependency , severe side effects pt will need to follow with his family physician -will need to have pain medication /narcotic pain meds contract to prevent overuse /mis use pt and his agreeable cough has improved, no fever or chills OBJECTIVE: Vital Signs-as noted below Exam: General-chronically ill appearing , awake and alert Eyes-sclera non icteric ENT-NAD Neck-no JVD , no thyromegaly Lungs-diminished , no rales or wheeze Heart-regular S1/S2 Abdomen-soft, non tender Extremities-no lower ext edema Neuro-no focal deficit Lab data as noted below. ASSESSMENT & PLAN: Acute Hypercapnic/Hypoxic Respiratory Failure secondary to Opioid Overdose resolved , awake and alert now patient took too many narcotic pain medications-un intentionally found unresponsive required brief period of intubation /mechanical ventilation for respiratory failure extubated on 08/13 currently respiratory status to baseline hx of long-term pain medication dependency ( since age 27 as per patient ) follows with pain management pt is counselled for narcotic pain medication dependency , severe side effects pt will need to follow with his family physician -will need to have pain medication /narcotic pain meds contract to prevent overuse /mis use pt and his agreeable cough has improved, no fever or chills Pneumonia concern for aspiration given period of unresponsiveness no fever or chills, cough has improved transitioned to PO doxycycline-complete total 7 days course Severe Emphysema and Ongoing Tobacco Use on home 02 continued to smoke 1 pk cig a day smoking cessation counselling provided pt will continue to follow up with his Pulmonology Dr Freed as out patient Troponin Elevation This is more likely due to demand ischemia no cardiac history, no significant EKG changes ECHO no wall motion abnormality D/c Aspirin , Arixtra Acute Kidney Injury, resolved creat on admission 1.5 due to dehydration resolved with IV hydration FULL CODE DVT PROPHYLAXIS sub q heparin DISPOSITION stable to be discharged home today Vital Signs: Date Time Temp Pulse Resp B/P Pulse Ox O2 Delivery O2 Flow Rate FiO2 08/15/16 14:45 36.4 77 22 96 Nasal Cannula 08/15/16 08:00 Nasal Cannula 3.0 08/15/16 07:24 36.4 77 22 146/97 96 Nasal Cannula 3.0 08/15/16 07:21 36.8 93 20 137/84 98 Room Air 08/15/16 00:19 36.7 69 20 142/98 95 2.0 08/15/16 00:00 Nasal Cannula 3.0 Lab Results: Results Past 24 Hours Test 08/15/16 06:48 Range/Units White Blood Count 6.04 4.8-10.8 K/uL Red Blood Count 4.51 4.7-6.1 M/uL Hemoglobin 14.6 14.0-18.0 g/dL Hematocrit 42.1 42-52 % Mean Corpuscular Volume 93.3 80-100 fL Mean Corpuscular Hemoglobin 32.4 25-34 pg Mean Corpuscular Hemoglobin Concent 34.7 32-36 g/dl RDW Standard Deviation 46.8 36.4-46.3 fL RDW Coefficient of Variation 13.8 11.5-14.5 % Platelet Count 113 130-400 K/uL Mean Platelet Volume 10.8 7.4-10.4 fL Sodium Level 137 136-145 mmol/L Potassium Level 3.2 3.5-5.1 mmol/L Chloride Level 100 98-107 mmol/L Carbon Dioxide Level 26 21-32 mmol/L Anion Gap 11.0 3-11 mmol/L Blood Urea Nitrogen 12 7-18 mg/dl Creatinine 0.80 0.60-1.40 mg/dl Est Creatinine Clear Calc Drug Dose 105.2 ml/min Estimated GFR () 114.9 Estimated GFR (Non- 99.2 BUN/Creatinine Ratio 15.1 10-20 Random Glucose 162 70-99 mg/dl Calcium Level 9.2 8.5-10.1 mg/dl Magnesium Level 1.9 1.8-2.4 mg/dl Total Creatine Kinase 39 39-308 U/L Creatine Kinase MB 1.4 0.5-3.6 ng/ml Creatine Kinase MB Ratio 3.6 0-3.0 Troponin I < 0.015 0-0.045 ng/ml
--- NOTE | 2016-08-15 16:32 | Discharge Summary ---
Discharge Summary Admission Date: Aug 12, 2016 at 13:08 Discharge Date: Aug 15, 2016 Discharge Disposition: Home Principal Diagnosis: NARCOTIC /PAIN MEDICATION OVERDOSE /ACUTE ON CHRONIC RESPIRATORY FAILURE Consultations: CRITICAL CARE PSYCHIATRY Medication Reconciliation New Medications: Doxycycline Hyclate (Doxycycline Hyclate) 100 Mg Cap 100 MG PO BID for 4 Days, #8 CAP Continued Medications: Albuterol (Proair Hfa) Aers 2 PUFFS INH QID Atorvastatin (Lipitor) 20 Mg Tab 20 MG PO DAILY, TAB Cholecalciferol (Vitamin D) 1,000 Inter.unit Tab 1000 INTER.UNIT PO DAILY, TAB Citalopram Hydrobromide (Celexa) 20 Mg Tab 20 MG PO DAILY, TAB Clobetasol Propionate 0.05% (Clobetasol Propionate 0.05% *) Cr 1 APPLN TD BID PRN Fluticasone Propionate Hfa (Flovent Hfa 220MCG Inhaler) 220 Mcg/ Aer 1 PUFF INH BID, INH Folic Acid (Folvite) 1 Mg Tab 1 MG PO DAILY, TAB Ipratropium-Albuterol (Duoneb) 3 Ml Nebu 1 TREATMENT INH Q4H PRN for SOB/Wheezing, #1 INHA 2 Refills Oxycodone/Acetaminophen 10MG/325MG (Percocet 10MG/325MG) 1 Tab Tab 1-2 TAB PO Q4 PRN for Pain, TAB Salmeterol Xinafoate Inh (Serevent Diskus Inh) Inh 1 PUFF INH BID, #1 INHALER Tiotropium Reed[place] (Spiriva Handihaler) 18 Mcg/ Aerp 1 CAP INH DAILY, INHALER Discontinued Medications: Levofloxacin (Levofloxacin) 500 Mg Tab 500 MG PO DAILY@20, #7 TAB Oxycodone Hcl (Oxycontin) 30 Mg Tab 30 MG PO q3hrs PRN for Pain, TAB Admission Information HPI (per Admitting provider): DATE OF ADMISSION: 08/12/2016 CHIEF COMPLAINT: Unresponsiveness. HISTORY OF PRESENT ILLNESS: This is a 56-year-old male with past medical history significant for severe COPD on home oxygen but does not use frequently as per , history of chronic bilateral low back pain and bilateral sciatica and neck pain, tobacco use disorder, psoriasis, history of BPH, history of testicular hypofunction, history of elevated blood pressure, history of respiratory failure in the past, history of benign neoplasm of colon, history of hyperlipidemia, history of alpha 1 antitrypsin deficiency, was found unresponsive at home. As per the , the patient was somewhat restless and talking to himself last night. He does at once in a while and she thought maybe he took extra pain medications, but in the morning when his friend went to check on him, he was found unresponsive and frothing around his mouth and was brought into the ER. In the ER, his respiratory rates were very low and he was given 0.4 of Narcan. He woke up for a brief while and was placed on BiPAP and he talked for a while but he did not answer the questions about what he took, and he went back to sleep, so at that time was decided for intubation. Currently, the patient is intubated, paralyzed and sedated.Hemodynamics stable currently. He is afebrile. Could not get review of symptoms as the patient is currently sedated and intubated. ALLERGIES: No known drug allergies. PAST MEDICAL HISTORY: As mentioned above. PAST SURGICAL HISTORY: Colonoscopy with biopsy, tonsillectomy and adenoidectomy. MEDICATIONS AT HOME: The patient is on folic acid 1 mg p.o. daily, atorvastatin 20 mg p.o. daily, azithromycin rescue pack, prednisone as directed, Serevent Diskus 1 puff b.i.d., Lasix 20 mg for his leg swelling and potassium chloride ER 20 mEq when taking Lasix, ProAir 2 puffs 4 times a day as needed, albuterol nebulization every 4 hours p.r.n., oxycodone 30 mg p.o. every 3 hours as needed, Percocet 10/325 mg 1 or 2 pills every 4 hours as needed, vitamin D 2000 units p.o. daily, Spiriva 18 mcg inhalation daily. FAMILY HISTORY: Significant for father has COPD and gout. SOCIAL HISTORY: Smokes 2 packs a day for 40 years. Alcohol rare. No drug use. He is and lives with his . REVIEW OF SYMPTOMS: Unobtainable as the patient is intubated and sedated. Physical Exam (per Admitting): PHYSICAL EXAMINATION: VITAL SIGNS: Temperature afebrile, pulse 102, respiratory rate 22, blood pressure 102/54, oxygen 100% on mechanical ventilator. GENERAL: The patient is intubated and sedated. HEENT: No pallor. No icterus. Pupils mildly reactive to light, constricted. NECK: No JVD, no neck masses, no carotid bruits. CARDIOVASCULAR: S1, S2 heard, regular rate and rhythm. No murmur. RESPIRATORY SYSTEM: Normal Ap diameter No accessory muscle use. No wheezing, no crackles. ABDOMEN: Soft, bowel sounds present. No distention. CENTRAL NERVOUS SYSTEM: Status post sedated and intubated. Babinski is negative. EXTREMITIES: No edema, no erythema. Hospital Course Acute Hypercapnic/Hypoxic Respiratory Failure secondary to Opioid Overdose resolved , awake and alert now patient took too many narcotic pain medications-un intentionally found unresponsive required brief period of intubation /mechanical ventilation for respiratory failure extubated on 08/13 currently respiratory status to baseline hx of long-term pain medication dependency ( since age 27 as per patient ) follows with pain management pt is counselled for narcotic pain medication dependency , severe side effects pt will need to follow with his family physician -will need to have pain medication /narcotic pain meds contract to prevent overuse /mis use pt and his agreeable cough has improved, no fever or chills Pneumonia concern for aspiration given period of unresponsiveness no fever or chills, cough has improved transitioned to PO doxycycline-complete total 7 days course Severe Emphysema and Ongoing Tobacco Use on home 02 continued to smoke 1 pk cig a day smoking cessation counselling provided pt will continue to follow up with his Pulmonology Dr Freed as out patient Troponin Elevation This is more likely due to demand ischemia no cardiac history, no significant EKG changes ECHO no wall motion abnormality D/c Aspirin , Arixtra Acute Kidney Injury, resolved creat on admission 1.5 due to dehydration resolved with IV hydration FULL CODE DVT PROPHYLAXIS sub q heparin DISPOSITION stable to be discharged home today Total time spent on discharge = 35 MINS This includes examination of the patient, discharge planning, medication reconciliation, and communication with other providers. Discharge Instructions DI: Medical v4 Discharge Instructions Admission Reason for Admission: Unresponsive State Discharge Discharge Diagnosis / Problem: NARCOTIC /PAIN MEDICATION OVERDOSE /ACUTE ON CHRONIC RESPIRATORY FAILURE Discharge Goals Goal(s): Improve disease control, Diagnostic testing, Therapeutic intervention Activity Recommendations Activity Limitations: resume your previous activity . Instructions / Follow-Up Instructions / Follow-Up HOSPITAL FOLLOW UP ON 08/21/2016 @ 10:[address] Howard Myers MD [facility] Diet Patient's current hospital diet: Regular Diet Discharge Diet Recommended Diet: Regular Diet Pending Studies Studies pending at discharge: no Laboratory Results Lipid Panel Test 08/13/16 05:15 Range/Units Triglycerides Level 59 0-150 mg/dl Cholesterol Level 113 0-200 mg/dl HDL Cholesterol 75 mg/dl Cholesterol/HDL Ratio 1.5 LDL Cholesterol, Calculated 26 mg/dl Medical Emergencies . Who to Call and When: Medical Emergencies: If at any time you feel your situation is an emergency, please call 911 immediately. . Non-Emergent Contact Non-Emergency issues call your: Primary Care Provider . . "Provider Documentation" section prepared by Alessia Diamond. VTE Core Measure Inpt VTE Proph given/why not?: Unfractionated heparin SQ
[2016-08-16 11:20] LABS: HEPATITIS C VIRAL RNA BY PCR <15 NOT DETECTED IU/ML (<15); HEPATITIS C VIRAL RNA(LOG) PCR <1.18 NOT DETECTED LOG IU/ML (<1.18)
[2016-08-16 15:35] LABS: COD UR NEGATIVE NG/ML (CUTOFF=50); HYDROCOD UR NEGATIVE NG/ML (CUTOFF=50); HYDROMOR UR NEGATIVE NG/ML (CUTOFF=50); MORPHINE UR NEGATIVE NG/ML (CUTOFF=50); NORHYDROCODONE CONF UR NEGATIVE NG/ML (CUTOFF=50); OXYMORPH UR 19000 NG/ML (CUTOFF=50)
[2016-08-19 05:34] LABS: HEPATITIS C RNA TMA QUAL Not detected
== END 2016-08-15 15:00 | disposition home health service (06) | DRG 208 ==
LOC: ENRESERVTM → ENRESERVDT → EDBD 11:27 → C.EDB 11:29 → C.MSICU 13:08 → EDBEDREQ 08-13 17:28 → C.MED 08-13 18:39 → C.MS4W 08-14 19:25
PROVIDERS: ADMIT Family Medicine; ATTEND Hospitalist
PROC: 5A1945Z Respiratory Ventilation, 24-96 Consecutive Hours (ICD-10-PCS; principal; 2016-08-12)
PROC: 0BH17EZ Insertion of Endotracheal Airway into Trachea, Via Natural or Artificial Opening (ICD-10-PCS; 2016-08-12)
DX: J69.0 Pneumonitis due to inhalation of food and vomit (principal); J96.21 Acute and chronic respiratory failure with hypoxia; J96.22 Acute and chronic respiratory failure with hypercapnia; N17.9 Acute kidney failure, unspecified; E87.2 Acidosis; F11.20 Opioid dependence, uncomplicated; E78.5 Hyperlipidemia, unspecified; T40.601A Poisoning by unspecified narcotics, accidental (unintentional), initial encounter; Y92.9 Unspecified place or not applicable; F17.200 Nicotine dependence, unspecified, uncomplicated; N40.0 Benign prostatic hyperplasia without lower urinary tract symptoms; L40.9 Psoriasis, unspecified; J43.9 Emphysema, unspecified; I10 Essential (primary) hypertension; F32.9 Major depressive disorder, single episode, unspecified; M54.2 Cervicalgia; G89.29 Other chronic pain; M40.209 Unspecified kyphosis, site unspecified; D64.9 Anemia, unspecified

== ENCOUNTER 2017-06-24 08:47 | Inpatient (IN) | payer OTHER ==
[2017-06-24] VITALS (9 sets, daily range): BP systolic 129–143; BP diastolic 86–93; PULSE 22–104; TEMP 36.6–37; O2SAT 92–99; Ht 170.2 cm; Wt 75.5 kg
[~2017-06-24] VITALS: Ht 170.2 cm; Wt 75.5 kg
[~2017-06-24 08:47] MED LIST changes: +DXY100 PO; -FOLI1TAB7 PO; +FOLI1TAB8 PO; +IPRA-64 INH; -IPRASOL4 INH; -LVQ500 PO; -OXYC-59 PO; -OXYC30TA35 PO
[2017-06-24] MEDS ORDERED: OXYC1TAB PO (09:33)
[2017-06-24 09:41] LABS: BASO % 0.2 %; BASO ABS # 0.01 K/uL (0-0.2); EOS % 0.2 %; EOS ABS # 0.01 K/uL (0-0.5); HEMATOCRIT 42.3 % (42-52); HEMOGLOBIN 14.7 g/dL (14.0-18.0); LYMPH % 9.3 %; LYMPH ABS # 0.46 K/uL (1.2-3.4); MEAN CELL VOLUME 93.4 fL (80-100); MEAN CORPUSCULAR HEMOGLOBIN 32.5 pg (25-34); MEAN CORPUSCULAR HGB CONC 34.8 g/dl (32-36); MEAN PLATELET VOLUME 10.7 fL (7.4-10.4); MONO % 12.9 %; MONO ABS # 0.64 K/uL (0.11-0.59); NEUT % 77.4 %; NEUT ABS # 3.84 K/uL (1.4-6.5); PLATELET COUNT 150 K/uL (130-400); RED CELL DISTRIBUTION WIDTH SD 44.6 fL (36.4-46.3); WHITE BLOOD COUNT 4.96 K/uL (4.8-10.8)
[2017-06-24 09:48] LABS: PTT PATIENT 32.2 SECONDS (21.0-31.0)
--- NOTE | 2017-06-24 09:49 | DIAGNOSTIC IMAGING REPORT ---
CHEST ONE VIEW PORTABLE CLINICAL HISTORY: change mental status dyspnea COMPARISON STUDY: 08/14/2016 FINDINGS: Stable emphysematous change. Interstitial and fibrotic changes in the mid to lower lung regions bilaterally stable to minimally progressive the right base. These are unchanged in the left. No evidence for cardiac enlargement. IMPRESSION: 1. Stable emphysematous change. 2. Basilar interstitial change the bulk of which is most likely chronic. 3. Probable superimposed right basilar infiltrate. The above report was generated using voice recognition software. It may contain grammatical, syntax or spelling errors. Electronically signed by: Howard Hopper M.D. 06/24/2017 9:48 AM Dictated Date/Time: 06/24/2017 9:47 AM
[2017-06-24 10:23] LABS: ALBUMIN 3.7 gm/dl (3.4-5.0); CALCIUM 9.3 mg/dl (8.5-10.1); CREATININE 0.83 mg/dl (0.60-1.40); POTASSIUM 3.9 mmol/L (3.5-5.1)
[2017-06-24 10:34] LABS: TOTAL PROTEIN 6.7 gm/dl (6.4-8.2)
[2017-06-24] MEDS ORDERED: PIPERACILLIN/TAZOBACTAM 4.5 GM/100ML D5W IV STA (10:37)
[2017-06-24] MEDS ORDERED: SODIUM CHLORIDE 0.9% 1000ML 1,000 ML IV STA (10:37)
[2017-06-24] MEDS ORDERED: METHYLPREDNISOLONE 125 MG VIAL IV STA (10:37)
--- NOTE | 2017-06-24 10:39 | EMERGENCY ROOM VISIT NOTE ---
History Report prepared by Jimena: Wil Erazo Under the Supervision of: Dr. Mackenzie Beltran D.O. First contact with patient: 10:20 Chief Complaint: WEAKNESS Stated Complaint: LETHARGIC Nursing Triage Summary: patient arrived via EMS. Pt lethargic, does answer eyes to name, touch, responds to questions appropriately but slowly, follows commands slowly. EMS reports pt woke up and couuldn't breath, was coughing large amounts of phlegm and vomited. Pt has COPD and wears 3L of oxygen at all time. Pt speech is slow and muffled, not opening mouth completely, speech not slurred. Movements slow; equal strength bilaterally. PT states he has worse neck pain than usual. Reports bulging disk in neck and arthritis. Takes Percocet and Oxycodone, reports taking Oxy 30mg this am, denies taking extra doses. Admits to fall in shower but does not say when fall occured or if there was injury. No visible, palpable facial/head injury noted. Pt is coughing at times, states cough is better now than this am. Pt arrived, states pt was normal over Laura and yesterday around 0500 when she awoke she noticed pt was not himself, tired, moving slower than normal , this morning when she awake she noticed he was even worse, very lethargic, coughing, vomited. Pt denies pt being able to take extra pain medication, states he hasn't had alcohol for years, denies known fall. States pt is prone to pneumonia. BSG 120 for EMS History of Present Illness The patient is a 57 year old male who presents to the Emergency Room via EMS with complaints of a worsening productive cough and difficulty breathing that began prior to arrival. He is accompanied by his . Per , she states the cough produces "clumps of mucous". Patient states he has associated symptoms of vomiting for the past couple of days. She states that the symptoms are similar to previous times when he has had pneumonia. Patient adds he has a nebulizer at home that helps his symptoms. He adds that he uses 3L of oxygen at home intermittently. He denies any fevers or chills. He adds he is not diabetic. Source of History: patient Onset: Prior to arrival Position: other (Global) Timing: worsening Associated Symptoms: + SOB, + vomiting, No fevers, No chills Review of Systems See HPI for pertinent positives & negatives. A total of 10 systems reviewed and were otherwise negative. Past Medical & Surgical Medical Problems: (1) Acute and chronic respiratory failure ([id number]) (2) ACUTE RESPIRATORY FAILURE (3) BPH (benign prostatic hypertrophy) (4) Chronic back pain (5) COPD, severe (6) Hyperlipidemia (7) PERSONAL HISTORY, PNEUMONIA (RECURRENT) (8) PNA (pneumonia) (9) Psoriasis (10) Tobacco use disorder (11) Unresponsive state Surgical Problems: (1) H/O colonoscopy (2) S/P tonsillectomy and adenoidectomy Family History FH: COPD (chronic obstructive pulmonary disease) FATHER BROTHER FH: alpha 1 antitrypsin deficiency BROTHER Social History Smoking Status: Current Every Day Smoker Marital Status: Housing Status: lives with significant other Occupation Status: disabled Current/Historical Medications Scheduled Atorvastatin (Lipitor), 20 MG PO DAILY Cholecalciferol (Vitamin D), 2 TABS PO DAILY Fluticasone Propionate (Flovent Hfa), 2 PUFF INH BID Furosemide (Lasix), 20 MG PO DAILY Oxycodone Ir (Roxicodone Ir), 30 MG PO Q3H Potassium Chloride (Potassium Chloride Er), 1 CAP PO DAILY Salmeterol Xinafoate (Serevent Diskus), 1 PUFF INH BID Tiotropium [place] (Spiriva Handihaler), 1 CAP INH DAILY Scheduled PRN Ipratropium-Albuterol (Duoneb), 1 TREATMENT INH Q4H PRN for SOB/Wheezing Oxycodone/Acetaminophen 10MG/325MG (Percocet 10MG/325MG), 1-2 TAB PO Q4 PRN for Pain Allergies Coded Allergies: No Known Allergies (Verified , 06/20/07) Physical Exam Vital Signs Date Time Temp Pulse Resp B/P (MAP) Pulse Ox O2 Delivery O2 Flow Rate FiO2 06/24/17 11:40 93 20 149/93 97 Nebulizer 06/24/17 10:52 104 19 93 06/24/17 10:47 97 16 95 Nasal Cannula 06/24/17 10:30 113/78 06/24/17 10:00 120/75 06/24/17 09:47 100 17 94 06/24/17 09:30 125/91 06/24/17 09:25 106 21 136/87 93 Nasal Cannula 3.0 06/24/17 09:14 136/87 06/24/17 09:06 109 06/24/17 09:05 87 Room Air 06/24/17 09:05 36.8 111 21 158/101 93 Room Air 3.0 06/24/17 09:05 36.8 111 22 158/101 87 Room Air 06/24/17 08:53 158/101 Physical Exam GENERAL: alert, ill appearing with frequent coughing, well nourished, no distress, non-toxic EYE EXAM: normal conjunctiva, PERRL and EOM's grossly intact HEENT: Poor dentition. OROPHARYNX: no exudate, no erythema, lips, buccal mucosa, and tongue normal and dried mucous membranes NECK: supple, no nuchal rigidity, no adenopathy, non-tender LUNGS: Diminished throughout. Rhonchi in right base. No wheezing or rales. Normal chest wall mechanics HEART: no murmurs, S1 normal and S2 normal ABDOMEN: abdomen soft, non-tender, normo-active bowel sounds, no masses, no rebound or guarding. BACK: Back is symmetrical on inspection and there is no deformity, no midline tenderness, no CVA tenderness. SKIN: no rashes and no bruising UPPER EXTREMITIES: upper extremities are grossly normal. LOWER EXTREMITIES: No pitting edema. NEURO EXAM: Normal sensorium, cranial nerves II-XII grossly intact, normal speech, no gross weakness of arms, no gross weakness of legs. Slow to answer, oriented, and appropriate Medical Decision & Procedures ER Provider Diagnostic Interpretation: Radiology results have been interpreted by the radiologist and reviewed by me. CERVICAL SPINE CT CT DOSE: 446.38 mGycm HISTORY: fall, neck pain TECHNIQUE: Multiaxial CT images of the cervical spine were performed and reformatted in the sagittal and coronal plane without the use of contrast. A dose lowering technique was utilized adhering to the principles of ALARA. COMPARISON: None. FINDINGS: No fractures. No subluxation. Prevertebral soft tissues and the C1-C2 interval are intact. Right lung apical lucency. This favors a large apical bulla. There is also bullous emphysema within the left lung apex. Moderate disc space narrowing at C5-C6. Mild disc space narrowing at C3-C4. IMPRESSION: 1. No acute fractures within the cervical spine. 2. Right apical lucency which favors a large bulla. Electronically signed by: Ronaldo Dubon M.D. 06/24/2017 11:[address] DOSE: 1150.57 mGycm HISTORY: Fall. Altered mental status. TECHNIQUE: Multiaxial CT images of the head were performed without the use of intravenous contrast. Automated exposure control was utilized for this study. A dose lowering technique was utilized adhering to the principles of ALARA. Comparison: Head CT 08/12/2016. Findings: Motion artifact. Mild mucosal thickening within the ethmoid air cells. The mastoid air cells are clear. The calvarium and skull base are intact. The ventricles and sulci are within normal limits. There is no mass, hematoma, midline shift, or acute infarct. Impression: No acute intracranial abnormality. Electronically signed by: Ronaldo Dubon M.D. 06/24/2017 11:21 AM CHEST ONE VIEW PORTABLE CLINICAL HISTORY: change mental status dyspnea COMPARISON STUDY: 08/14/2016 FINDINGS: Stable emphysematous change. Interstitial and fibrotic changes in the mid to lower lung regions bilaterally stable to minimally progressive the right base. These are unchanged in the left. No evidence for cardiac enlargement. IMPRESSION: 1. Stable emphysematous change. 2. Basilar interstitial change the bulk of which is most likely chronic. 3. Probable superimposed right basilar infiltrate. The above report was generated using voice recognition software. It may contain grammatical, syntax or spelling errors. Electronically signed by: Howard Hopper M.D. 06/24/2017 9:48 AM Laboratory Results Test 06/24/17 09:05 06/24/17 09:13 06/24/17 09:16 06/24/17 09:38 Immature Granulocyte % (Auto) 0.0 % White Blood Count 4.96 K/uL (4.8-10.8) Red Blood Count 4.53 M/uL (4.7-6.1) Hemoglobin 14.7 g/dL (14.0-18.0) Hematocrit 42.3 % (42-52) Mean Corpuscular Volume 93.4 fL (80-100) Mean Corpuscular Hemoglobin 32.5 pg (25-34) Mean Corpuscular Hemoglobin Concent 34.8 g/dl (32-36) Platelet Count 150 K/uL (130-400) Mean Platelet Volume 10.7 fL (7.4-10.4) Neutrophils (%) (Auto) 77.4 % Lymphocytes (%) (Auto) 9.3 % Monocytes (%) (Auto) 12.9 % Eosinophils (%) (Auto) 0.2 % Basophils (%) (Auto) 0.2 % Neutrophils # (Auto) 3.84 K/uL (1.4-6.5) Lymphocytes # (Auto) 0.46 K/uL (1.2-3.4) Monocytes # (Auto) 0.64 K/uL (0.11-0.59) Eosinophils # (Auto) 0.01 K/uL (0-0.5) Basophils # (Auto) 0.01 K/uL (0-0.2) Immature Granulocyte # (Auto) 0.00 K/uL (0.00-0.02) Prothrombin Time 10.9 SECONDS (9.0-12.0) Prothromb Time International Ratio 1.0 (0.9-1.1) Activated Partial Thromboplast Time 32.2 SECONDS (21.0-31.0) Partial Thromboplastin Ratio 1.2 Total Bilirubin 0.4 mg/dl (0.2-1) Aspartate Amino Transf (AST/SGOT) 19 U/L (15-37) Alanine Aminotransferase (ALT/SGPT) 14 U/L (12-78) Alkaline Phosphatase 153 U/L (45-117) Total Protein 6.7 gm/dl (6.4-8.2) Albumin 3.7 gm/dl (3.4-5.0) Globulin 3.0 gm/dl (2.5-4.0) Albumin/Globulin Ratio 1.2 (0.9-2) Thyroid Stimulating Hormone (TSH) 0.254 uIu/ml (0.300-4.500) Bedside Lactic Acid Venous 1.13 mmol/L (0.90-1.70) Bedside Glucose 112 mg/dl (70-99) Ethyl Alcohol mg/dL < 3.0 mg/dl (0-3) Test 06/24/17 10:45 06/24/17 11:40 Ammonia 18.3 umol/L (11-32) Troponin I < 0.015 ng/ml (0-0.045) Lipase 33 U/L (73-393) Influenza Type A Antigen POS for Influ A (NEG) Influenza Type B Antigen Neg for Influ B (NEG) Laboratory results per my review. Medications Administered Medications (Trade) Dose Ordered Sig/Margarita Route Start Time Stop Time Status Last Admin Dose Admin Sodium Chloride 1,000 ml @ 250 mls/hr Q4H STAT IV 06/24/17 10:37 06/24/17 14:36 DC 06/24/17 11:42 250 MLS/HR Piperacillin Sod/ Tazobactam Sod (Zosyn Iv) 4.5 gm NOW STAT IV 06/24/17 10:37 06/24/17 10:39 DC 06/24/17 11:42 4.5 GM Methylprednisolone Sodium Succinate (Solu-Medrol IV) 125 mg NOW STAT IV 06/24/17 10:37 06/24/17 10:39 DC 06/24/17 11:41 125 MG Albuterol/ Ipratropium (Duoneb) 3 ml NOW STAT INH 06/24/17 11:04 06/24/17 11:05 DC 06/24/17 11:41 3 ML ECG Indication: SOB/dyspnea (Difficulty breathing) Rate (beats per minute): 103 Rhythm: sinus tachycardia Findings: no acute ischemic change, other (Normal interval. Normal axis) ED Course 1025: The patient was evaluated in room B8. A complete history and physical exam was performed. 1037: Solu-Medrol IV 125mg, Zosyn IV 4.5gm, Sodium Chloride 1000 ml @ 250 mls/ hr IV 1104: Duoneb 3ml INH 1158: Upon reevaluation, the patient will be further evaluated. I discussed the findings and the treatment plan with the patient. He expresses agreement and understanding. I spoke with Sonia Adan PA-C of the [facility]. He will be evaluated for further management. Medical Decision Differential diagnosis: Etiologies such as metabolic, infection, hypoglycemia, electrolyte abnormalities , cardiac sources, intracerebral event, toxicologic, neurologic, as well as others were entertained. Differential diagnosis: Etiologies such as infections, reactive airway disease, pneumonia, pneumothorax , COPD, CHF, cardiac ischemia, pulmonary embolism, musculoskeletal, gastrointestinal, as well as others were entertained. Patient well-appearing here, requiring additional oxygen support. Given pneumonia seen on the right lower lobe on chest x-ray and description of family of vomiting, patient covered for possible aspiration given that he is a frequent drinker and has COPD as well. Patient not intoxicated here no evidence of alcohol withdrawal. Patient improved with nebulizer treatments, IV fluids, given IV Zosyn. Mild hyponatremia likely secondary to poor by mouth intake as well as alcohol use. No evidence of trauma related to possible fall as noted this morning by family. Patient given steroids in addition given underlying COPD. Patient slightly somnolent here but able to answer questions appropriately. Medication Reconcilliation Current Medication List: was personally reviewed by me Blood Pressure Screening Patient's blood pressure: Normal blood pressure Blood pressure disposition: Did not require urgent referral Consults Time Called: 1152 Consulting Physician: Dr. Loco HUDSON - Hospitalist Returned Call: 1153 I reviewed the patient's case with Dr. Adan. She will evaluate the patient for further management. Impression Primary Impression: Pneumonia Additional Impressions: Transient confusion COPD exacerbation Tobacco use disorder Hyponatremia Influenza Scribe Attestation The scribe's documentation has been prepared under my direction and personally reviewed by me in its entirety. I confirm that the note above accurately reflects all work, treatment, procedures, and medical decision making performed by me. Departure Information Dispostion Being Evaluated By Hospitalist Referrals Howard Myers M.D. (PCP) Forms HOME CARE DOCUMENTATION FORM, IMPORTANT VISIT INFORMATION Patient Instructions [facility] Problem Qualifiers Primary Impression: Pneumonia Pneumonia type: due to unspecified organism Laterality: right Lung location : lower lobe of lung Qualified Codes: J18.1 - Lobar pneumonia, unspecified organism
[2017-06-24] MEDS ORDERED: ALBUT/IPRATROP 3MG/0.5MG NEB 3 ML VIAL INH STA (11:04)
[2017-06-24 11:20] LABS: LIPASE 33 U/L (73-393)
--- NOTE | 2017-06-24 11:23 | DIAGNOSTIC IMAGING REPORT ---
HEAD CT NONCONTRAST CT DOSE: 1150.57 mGycm HISTORY: Fall. Altered mental status. TECHNIQUE: Multiaxial CT images of the head were performed without the use of intravenous contrast. Automated exposure control was utilized for this study. A dose lowering technique was utilized adhering to the principles of ALARA. Comparison: Head CT 08/12/2016. Findings: Motion artifact. Mild mucosal thickening within the ethmoid air cells. The mastoid air cells are clear. The calvarium and skull base are intact. The ventricles and sulci are within normal limits. There is no mass, hematoma, midline shift, or acute infarct. Impression: No acute intracranial abnormality. Electronically signed by: Ronaldo Dubon M.D. 06/24/2017 11:21 AM Dictated Date/Time: 06/24/2017 11:12 AM
--- NOTE | 2017-06-24 11:32 | DIAGNOSTIC IMAGING REPORT ---
CERVICAL SPINE CT CT DOSE: 446.38 mGycm HISTORY: fall, neck pain TECHNIQUE: Multiaxial CT images of the cervical spine were performed and reformatted in the sagittal and coronal plane without the use of contrast. A dose lowering technique was utilized adhering to the principles of ALARA. COMPARISON: None. FINDINGS: No fractures. No subluxation. Prevertebral soft tissues and the C1-C2 interval are intact. Right lung apical lucency. This favors a large apical bulla. There is also bullous emphysema within the left lung apex. Moderate disc space narrowing at C5-C6. Mild disc space narrowing at C3-C4. IMPRESSION: 1. No acute fractures within the cervical spine. 2. Right apical lucency which favors a large bulla. Electronically signed by: Ronaldo Dubon M.D. 06/24/2017 11:30 AM Dictated Date/Time: 06/24/2017 11:22 AM
[2017-06-24 12:24] LABS: INFLUENZA B ANTIGEN Neg for Influ B (NEG)
[2017-06-24] MEDS ORDERED: PIPERACILL/TAZOBAC IV 3.375 GM in DEXTROSE 5% 100ML 100 ML IV SCH (12:30)
[2017-06-24] MEDS ORDERED: ACETAMINOPHEN 325 MG TAB PO PRN (12:30)
[2017-06-24] MEDS ORDERED: POTA1CAP2 PO (12:39)
[2017-06-24] MEDS ORDERED: FURO20TA PO (12:39)
[2017-06-24] MEDS ORDERED: POTASSIUM CHLORIDE INJ 20 MEQ in D5W AND NSS 1,000 ML IV SCH (14:00)
--- NOTE | 2017-06-24 14:00 | NUR ---
A/ID: Patient admitted to PCU room 215 with flu and pneumonia. Patient is lethargic and drooling, arousable to verbal stimuli but quickly falling back to sleep during assessment. LS diminished on 3LNC, moist cough. No edema noted, SR on monitor, PPP. Abdomen soft nontender, NPO at this time. Skin intact. Bed alarm placed on.
--- NOTE | 2017-06-24 14:10 | History and Physical ---
History & Physical Date & Time of Service: Jun 24, 2017 at 13:49 Chief Complaint: Acute And Chronic Respiratory Failure, Pna Primary Care Physician: Howard Myers M.D. History of Present Illness Source: patient, spouse (at bedside), clinic records, hospital records This is a 57yo M with a PMH of severe COPD (on 2-3L home O2, h/o alpha 1 antitrypsin deficiency), tobacco use disorder, h/o chronic lower back pain and bilateral sciatica, h/o narcotic dependence, HTN, HLD and Vit D deficiency who presents with worsening productive cough x 2 days. Patient is supposed to use home O2 continuously but states that patient is not always compliant. Over the past few days, patient has had worsening SOB while sitting and a productive cough with thick, white sputum. Also endorses subjective fever, chills, body aches and a few vomiting episodes. Patient states his SOB was much more severe last night and he increased NC O2 to 5L. States he experienced an unwitnessed mechanical fall during the night but is unsure how or when it occurred. found patient to be confused this morning so she brought him in for further evaluation. Patient denies taking more than scheduled amount of percocet or oxycodone. Continues to smoke 2.5-3 packs a day. was sick with a URI 2 weeks ago. Was previously admitted in July of this year after being found unresponsive at home after taking extra pain medication. Patient required intubation in the ICU for management of acute on chronic respiratory failure in setting of narcotic overdose and COPD. Received Narcan and was successfully extubated. Treated for COPD exacerbation. Was counseled on decreasing narcotic use in setting of admitted dependence on narcotics since age 27. Follows with a pain mgmt clinic in [facility] and Dr. Freed for pulmonology. Currently patient endorses cough, SOB, confusion, fatigue and myalgias. Denies fever, chills, lightheadedness, headache, syncope, palpitations, chest pain, abd pain, nausea, vomiting, dysuria or LE swelling. Past Medical/Surgical History Medical Problems: (1) ACUTE RESPIRATORY FAILURE Status: Resolved (2) BPH (benign prostatic hypertrophy) Status: Chronic (3) Chronic back pain Status: Chronic (4) COPD, severe Status: Chronic (5) Hyperlipidemia Status: Chronic (6) PERSONAL HISTORY, PNEUMONIA (RECURRENT) Status: Resolved (7) Psoriasis Status: Chronic (8) Tobacco use disorder Status: Chronic Surgical Problems: (1) H/O colonoscopy Permanent Comment: 07/01/10- hyperplastic Status: Chronic (2) S/P tonsillectomy and adenoidectomy Status: Chronic Family History FH: COPD (chronic obstructive pulmonary disease) FATHER BROTHER FH: alpha 1 antitrypsin deficiency BROTHER Social History Smoking Status: Current Every Day Smoker Alcohol Use: none Marital Status: Housing status: lives with significant other Occupational Status: disabled Immunizations History of Influenza Vaccine: N/A Influenza Vaccine Date: Apr 19, 2009 History of Tetanus Vaccine?: Unknown History of Pneumococcal: Yes Pneumococcal Date: Jan 03, 2011 History of Hepatitis B Vaccine: No Multi-Drug Resistant Organisms History of MDRO: No Allergies Coded Allergies: No Known Allergies (Verified , 06/20/07) Home Medications Scheduled Atorvastatin (Lipitor), 20 MG PO DAILY Cholecalciferol (Vitamin D), 2 TABS PO DAILY Fluticasone Propionate (Flovent Hfa), 2 PUFF INH BID Furosemide (Lasix), 20 MG PO DAILY Oxycodone Ir (Roxicodone Ir), 30 MG PO Q3H Potassium Chloride (Potassium Chloride Er), 1 CAP PO DAILY Salmeterol Xinafoate (Serevent Diskus), 1 PUFF INH BID Tiotropium [place] (Spiriva Handihaler), 1 CAP INH DAILY Scheduled PRN Ipratropium-Albuterol (Duoneb), 1 TREATMENT INH Q4H PRN for SOB/Wheezing Oxycodone/Acetaminophen 10MG/325MG (Percocet 10MG/325MG), 1-2 TAB PO Q4 PRN for Pain Review of Systems Ten systems reviewed and negative except as noted in the HPI. Physical Exam Vital Signs Date Time Temp Pulse Resp B/P (MAP) Pulse Ox O2 Delivery O2 Flow Rate FiO2 06/24/17 13:05 37.2 92 20 120/90 93 Nasal Cannula 3.0 06/24/17 11:40 93 20 149/93 97 Nebulizer 06/24/17 10:52 104 19 93 06/24/17 10:47 97 16 95 Nasal Cannula 06/24/17 10:30 113/78 06/24/17 10:00 120/75 06/24/17 09:47 100 17 94 06/24/17 09:30 125/91 06/24/17 09:25 106 21 136/87 93 Nasal Cannula 3.0 06/24/17 09:14 136/87 06/24/17 09:06 109 06/24/17 09:05 87 Room Air 06/24/17 09:05 36.8 111 21 158/101 93 Room Air 3.0 06/24/17 09:05 36.8 111 22 158/101 87 Room Air 06/24/17 08:53 158/101 General Appearance: + mild distress, + pertinent finding (Lethargic, receving neb treatment) Head: normocephalic, atraumatic Eyes: normal inspection, PERRL, sclerae normal ENT: normal ENT inspection, hearing grossly normal, pharynx normal Neck: supple, no JVD, trachea midline Respiratory/Chest: chest non-tender, normal breath sounds, no respiratory distress, no accessory muscle use, + crackles (R lung base), + wheezing ( expiratory wheezes throughout lungfields ) Cardiovascular: no murmur, normal peripheral pulses, + tachycardia Abdomen/GI: non tender, soft, no organomegaly Back: normal inspection Extremities/Musculoskelatal: normal inspection, no calf tenderness, no pedal edema Neurologic/Psych: no motor/sensory deficits, alert, normal mood/affect, oriented x 3, + pertinent finding (Lethargic ) Skin: normal color, warm/dry, no rash Diagnostics Laboratory Results Results Past 24 Hours Test 06/24/17 09:05 06/24/17 09:13 06/24/17 09:38 06/24/17 10:45 Range/Units White Blood Count 4.96 4.8-10.8 K/uL Red Blood Count 4.53 4.7-6.1 M/uL Hemoglobin 14.7 14.0-18.0 g/dL Hematocrit 42.3 42-52 % Mean Corpuscular Volume 93.4 80-100 fL Mean Corpuscular Hemoglobin 32.5 25-34 pg Mean Corpuscular Hemoglobin Concent 34.8 32-36 g/dl Platelet Count 150 130-400 K/uL Mean Platelet Volume 10.7 7.4-10.4 fL Neutrophils (%) (Auto) 77.4 % Lymphocytes (%) (Auto) 9.3 % Monocytes (%) (Auto) 12.9 % Eosinophils (%) (Auto) 0.2 % Basophils (%) (Auto) 0.2 % Neutrophils # (Auto) 3.84 1.4-6.5 K/uL Lymphocytes # (Auto) 0.46 1.2-3.4 K/uL Monocytes # (Auto) 0.64 0.11-0.59 K/uL Eosinophils # (Auto) 0.01 0-0.5 K/uL Basophils # (Auto) 0.01 0-0.2 K/uL RDW Standard Deviation 44.6 36.4-46.3 fL RDW Coefficient of Variation 13.0 11.5-14.5 % Immature Granulocyte % (Auto) 0.0 % Immature Granulocyte # (Auto) 0.00 0.00-0.02 K/uL Prothrombin Time 10.9 9.0-12.0 SECONDS Prothromb Time International Ratio 1.0 0.9-1.1 Activated Partial Thromboplast Time 32.2 21.0-31.0 SECONDS Partial Thromboplastin Ratio 1.2 Sodium Level 129 136-145 mmol/L Potassium Level 3.9 3.5-5.1 mmol/L Chloride Level 94 98-107 mmol/L Carbon Dioxide Level 30 21-32 mmol/L Anion Gap 5.0 3-11 mmol/L Blood Urea Nitrogen 6 7-18 mg/dl Creatinine 0.83 0.60-1.40 mg/dl Est Creatinine Clear Calc Drug Dose 97.1 ml/min Estimated GFR () 112.4 Estimated GFR (Non- 97.0 BUN/Creatinine Ratio 7.5 10-20 Random Glucose 96 70-99 mg/dl Calcium Level 9.3 8.5-10.1 mg/dl Total Bilirubin 0.4 0.2-1 mg/dl Aspartate Amino Transf (AST/SGOT) 19 15-37 U/L Alanine Aminotransferase (ALT/SGPT) 14 12-78 U/L Alkaline Phosphatase 153 45-117 U/L Total Protein 6.7 6.4-8.2 gm/dl Albumin 3.7 3.4-5.0 gm/dl Globulin 3.0 2.5-4.0 gm/dl Albumin/Globulin Ratio 1.2 0.9-2 Thyroid Stimulating Hormone (TSH) 0.254 0.300-4.500 uIu/ml Bedside Lactic Acid Venous 1.13 0.90-1.70 mmol/L Ethyl Alcohol mg/dL < 3.0 0-3 mg/dl Ammonia 18.3 11-32 umol/L Troponin I < 0.015 0-0.045 ng/ml Lipase 33 73-393 U/L Test 06/24/17 11:40 06/24/17 13:02 Range/Units Influenza Type A Antigen POS for Influ A NEG Influenza Type B Antigen Neg for Influ B NEG Arterial Blood pH 7.32 7.35-7.45 Arterial Blood Partial Pressure CO2 61 35-46 mmHg Arterial Blood Partial Pressure O2 70 80-95 mm/Hg Arterial Blood HCO3 31 19-24 mmol/L Arterial Blood Oxygen Saturation 92.3 90-95 % Arterial Blood Base Excess 3.0 -9-1.8 mEq/L Arterial Blood Gas Delivery 3.5L Eleazar Test POS POS Diagnostic Radiology CXR: IMPRESSION: 1. Stable emphysematous change. 2. Basilar interstitial change the bulk of which is most likely chronic. 3. Probable superimposed right basilar infiltrate. Head CT: Impression: No acute intracranial abnormality. Cervical spine CT: IMPRESSION: 1. No acute fractures within the cervical spine. 2. Right apical lucency which favors a large bulla. EKG Sinus tachycardia at 103 bpm No change from prior EKG Impression Assessment and Plan This is a 57yo M with a PMH of severe COPD (on 2-3L home O2, h/o alpha 1 antitrypsin deficiency), tobacco use disorder, h/o chronic lower back pain and bilateral sciatica, h/o narcotic dependence, HTN, HLD and Vit D deficiency who presents with worsening productive cough x 2 days. Acute on chronic hypoxic and hypercapnic respiratory failure: -In setting of severe COPD, RLL PNA, Flu A -Respiratory acidosis on ABG with pH of 7.32, pO2 of 70, pco2 of 61 -O2 saturation in low 90s on 3L NC -Cont supplemental O2 -Supportive measures -Droplet precautions -Continue to monitor on tele PNA, COPD exacerbation: -Right basilar infiltrate on CXR -Zosyn and azithromycin initiated for coverage for potential aspiration, atypicals -Sputum culture pending -Solu-medrol -Xopenex nebs Altered mental status: -Likely metabolic from hypoxic and hypercapnic state vs. toxic from high dose of narcotics -Considered injury from unwitnessed fall. CT head without acute changes -A&Ox3 but lethargic -Respiratory treatment as above -Keep NPO for now -Gentle IVF resuscitation Tobacco use disorder: -Smokes 2.5-3 ppd -Nicotine patch -Smoking cessation H/o chronic lower back pain w/ sciatica: -Currently holding home oxycodone and percocet -Will resume percocet once patient's mentation is back to baseline -Close out-patient follow up for better management of narcotics HTN: -Normotensive -Cont Lasix tomorrow if BP elevated HLD: -Cont statin Vit D Deficiency: -Cont home dose Vit D supplementation DVT Ppx: Lovenox SQ Code status: FULL per discussion and living will PCP: Louis Dispo: Admitted to telemetry. Plan to return home once medically stable Patient seen in collaboration with Dr. Polk. Please see addendum. Attending Addendum: The patient was seen and examined Flue like symptoms for the last few days.cough with more SOB Continues to Smoke and has been on high dose narcotics O/E Drowsy with moderate SOB at rest Chest-severely decreased breath sound bilaterally No wheezing Heart-regular Abdomen-benign,No masses Extremities-no edema [employer] SAL[employer]-Drowsy Generally weak and Lethargic No focal neuro deficit Labs and Imaging studies were reviewed Problems-Severe O2 dependent COPD with ongoing smoking Chronic Hypoxic and hypercarbic respiratory failure Too much narcotics use in setting of COPD Likely to need Pulmonary and Pain therapy consult before discharge Agree with assessment and plan. DR Marcella Polk Level of Care Telemetry Resuscitation Status FULL RESUSCITATION VTE Prophylaxis VTE Risk Assessment Done? Y/N: Yes Risk Level: Low Given or contraindicated: Enoxaparin (Lovenox)SQ
[2017-06-24] MEDS ORDERED: PIPERACILL/TAZOBAC CONSULT ACTIVE PRN (14:15)
[2017-06-24] MEDS: AZITHROMYCIN IV 500 MG in DEXTROSE 5% 250ML 250 ML IV SCH (14:23)
[2017-06-24] MEDS: ENOXAPARIN 40 MG/0.4 ML SYR SC SCH (14:25)
[2017-06-24] MEDS ORDERED: PNEUMOCOCCAL ADMINISTRATION CHARGE ONE (15:00)
[2017-06-24] MEDS ORDERED: INFLUENZA VIRUS QUAD VACCINE 0.5 ML SYR IM. ONE (15:00)
[2017-06-24] MEDS ORDERED: PNEUMOCOCCAL POLYSACCHARIDES 25 MCG/0.5 ML VIAL/SYR IM. ONE (15:00)
[2017-06-24] MEDS ORDERED: LEVALBUTEROL/IPRATROPIUM NEB INH SCH (15:00)
[2017-06-24] MEDS ORDERED: INFLUENZA ADMINISTRATION CHARGE ONE (15:00)
--- NOTE | 2017-06-24 15:40 | NUR ---
A: Patient was instructed to use call cespedes for help getting OOB, also instructed to use urinal for urine sample. Bed alarmed and patient was found to be sitting at edge of bed trying to get up, incontinent of urine in bed and on floor. Patient remains extremely lethargic and unable to hold conversation and is asking for something to eat. Dr Polk to order speech consult before patient can eat or drink.
--- NOTE | 2017-06-24 19:04 | NUR ---
DR. WEISS UPDATED THAT PT IS ORDERED PO MEDICATIONS BUT IS NPO, ORDERED TO MAKE PT NPO EXCEPT MEDS.
[2017-06-24] MEDS: SALMETEROL XINAFOATE 50MCG 28 BLISTER INH INH SCH (19:13)
[2017-06-24] MEDS: METHYLPREDNISOLONE IV 40 MG in SYRINGE 0 ML IV SCH (19:13)
[2017-06-24] MEDS: PIPERACILL/TAZOBAC IV 3.375 GM in DEXTROSE 5% 100ML 100 ML IV SCH (19:14)
[2017-06-24] MEDS: OSELTAMIVIR PHOSPHATE 75 MG CAP PO SCH (19:14)
[2017-06-24] MEDS: LEVALBUTEROL 1.25MG/0.5ML NEB INH SCH (19:20)
[2017-06-24] MEDS: IPRATROPIUM BROMIDE NEB SOLN 0.02% 2.5 ML VIAL INH SCH (19:20)
--- NOTE | 2017-06-24 19:30 | NUR ---
PT RESTING IN BED. REPORTS BACK PAIN 2/10 AT THIS TIME. PT DROWSY, RESPONDS TO VERBAL STIMULI, ORIENTED. PT ON BIPAP, TAKEN OFF TO GIVE MEDICATIONS, TOLERATING WELL. RESPIRATORY THERAPY IN TO GIVE NEBS THEN PLACE PT BACK ON BIPAP. NSR ON MONITOR. SEE EMR FOR ASSESSMENT. NO ACUTE DISTRESS NOTED. BED ALARM ON. CALL VÁSQUEZ WITHIN REACH, MONITORING CLOSELY.
--- NOTE | 2017-06-24 20:39 | PULMONARY CONSULTATION ---
DATE OF CONSULTATION: 06/24/2017 TIME: 5:15 p.m. HISTORY OF PRESENT ILLNESS: The patient was seen in room #215. He is a 57-year-old male who was brought to the Emergency Room earlier today with a history of being very somnolent. The patient himself is unable to give me significant history. Reportedly, he has had a worsening cough for 2 days. He has had increasing shortness of breath. His mucus has been thick and white. He reportedly had some fevers and chills, although I do not think his temperature was actually taken. He has had intermittent episodes of vomiting, according to the history. The patient could only give me any history after it took about 5 minutes for me to awaken him. The chart indicated that the patient had fallen at home. He did tell me this was in the bathroom and it was during the night time. Apparently he did not hurt himself at all. He had been hospitalized back in July for what was thought to be an overdose of his narcotics. The patient tells me he typically takes 6 oxycodone and 6 Percocets per day. The oxycodone is the IR. He has been on chronic pain medicines for many years. He reportedly has chronic back pain. The patient has been a long-term smoker. He smokes about 2-1/2 packs per day. He has been smoking for at least 40 years. He did have an exacerbation of COPD in March when he had seen Dr. Freed. He had been previously hospitalized in July for 3 days as noted with severe lethargy that was thought to be due to the narcotics. However, at the time of this presentation, he does not have constricted pupils. PAST MEDICAL HISTORY: 1. Severe COPD and emphysema. 2. Chronic back pain. 3. BPH. 4. Hyperlipidemia. 5. Hypertension. SOCIAL HISTORY: Tobacco - a heavy cigarette smoker as noted above. ETOH - None. ALLERGIES: Reportedly no known allergies. FAMILY HISTORY: Positive for father having COPD and a brother having alpha 1 antitrypsin MZ variant. Review of our prior office record shows that the patient himself does not have alpha 1 antitrypsin deficiency of with any kind. His levels have been normal. PAST SURGICAL HISTORY: T&A. REVIEW OF SYSTEMS: Essentially unobtainable as the patient is too obtunded. MEDICATIONS AT HOME: 1. Atorvastatin 20 mg daily. 2. Vitamin D 2 tabs daily. 3. Flovent HFA 2 puffs b.i.d. 4. Lasix 20 mg daily. 5. Oxycodone IR 30 mg q. 3 hours. 6. Potassium daily. 7. Serevent Diskus 1 puff b.i.d. 8. Tiotropium 1 daily. 9. DuoNebs q. 4 hours p.r.n. 10. Oxycodone/acetaminophen 10/325 one to two tabs q. 4 hours p.r.n. pain - patient states he takes about 6 per day. PHYSICAL EXAMINATION GENERAL: The patient is a 57-year-old male who is lethargic. He aroused after about 5 minutes of stimulation. At first, he could not tell me the year or the month, but when he became more awake, he was able to tell me. It should be noted that he has been here in the Emergency Room early to mid morning, so he has been here for a long time. HEENT: His pupils actually were slightly dilated. They were sluggish but did react. NECK: Palpation of the neck reveals no lymph nodes. VITAL SIGNS: Temperature was 37 degrees. Heart rate was 98 per minute. The rhythm is regular. Blood pressure 138/87. LUNGS: Respiratory rate was 24 per minute at the time of my exam. Coarse wheeze and rhonchi were heard bilaterally. There was prolongation to the expiratory phase. Saturation was 94% on 3 liters. ABDOMEN: Soft. Bowel sounds were normal. There was no tenderness to palpation, masses or organomegaly. EXTREMITIES: Revealed no cyanosis, clubbing or edema. IMAGING DATA: The patient's chest x-ray shows evidence of emphysematous bullae in the right upper lung field. Diffuse interstitial and fibrotic changes are noted. He appears to have what I believe are infiltrates at the right base and left base which are more pronounced than prior and may represent pneumonia, possibly aspiration pneumonia. Head CT showed no acute findings. Cervical spine CT showed no fractures. LABORATORY DATA: Flu test was positive for influenza A. White count is 4.96. Hemoglobin 14.7. Platelets 150,000. Coags were unremarkable. Blood gas showed a pH 7.32 with a pCO2 of 61 and a pO2 of 70, done on 3.5 liters of oxygen. Electrolytes show sodium 129, potassium 3.9, chloride 94, bicarbonate 30. BUN was 6 with a creatinine of 0.83. Alkaline phosphatase was elevated at 153. The test was reportedly hemolyzed and results may be affected. Troponin was negative. AST and ALT were normal. TSH was 0.254. This is a little lower than normal. Drug screen is still pending. EKG showed a sinus tachycardia with a rate of 103. There was a left axis deviation. IMPRESSION: 1. Respiratory failure - acute on chronic, both hypercarbia and hypoxia. 2. Acute influenza A infection. 3. Bullous emphysema with at least moderately severe chronic obstructive pulmonary disease. 4. Bilateral infiltrates suggestive for pneumonia - possibly aspiration type. COMMENTS AND RECOMMENDATIONS: I am surprised the patient is still so lethargic. He needs very close followup. In light of the elevation of his pCO2 and his relative acidosis, I am going to give him a trial of BiPAP. I am going to use low pressures. I do have some concerns, because of the bullae, I would not want to have a pneumothorax. We will repeat a blood gas in a couple of hours. I am going to stop the Tiotropium because of his history of BPH. I spoke with Dr. Polk. He will order the Tamiflu. We will keep his oxygen saturations between 88% and 92%. We want to keep it low to stimulate ventilation. If his blood gas would worsen, he may need to go to ICU for monitoring. Thank you for asking me to assist in his care.
--- NOTE | 2017-06-24 22:04 | NUR ---
DR. CEDEÑO CALLED AND UPDATED ON NEW ABG RESULTS. ORDERED TO CONTINUE BIPAP AT CURRENT SETTINGS AND TAKE OFF IN MORNING.
[2017-06-25] VITALS (13 sets, daily range): BP systolic 117–161; BP diastolic 74–104; PULSE 91–100; TEMP 36.5–37; O2SAT 89–98
--- NOTE | 2017-06-25 | NUR ---
PT RESTING IN BED COMFORTABLY, BIPAP INTACT. NO ACUTE DISTRESS NOTED. SEE EMR FOR ASSESSMENT. PT DENIES PAIN. NSR ON MONITOR. CALL VÁSQUEZ WITHIN REACH, MONITORING.
--- NOTE | 2017-06-25 01:30 | NUR ---
PT HAD DRY HEAVES AT THIS TIME, ZOFRAN GIVEN, NO EMESIS. PT DENIES PAIN. DR. PABLO UPDATED.
[2017-06-25] MEDS: ONDANSETRON INJ 2 MG/ML 2 ML VIAL IV PRN ×2 (01:36→23:20)
[2017-06-25] MEDS: IPRATROPIUM BROMIDE NEB SOLN 0.02% 2.5 ML VIAL INH SCH ×4 (02:00→19:22)
[2017-06-25] MEDS: LEVALBUTEROL 1.25MG/0.5ML NEB INH SCH ×4 (02:00→19:22)
[2017-06-25] MEDS: METHYLPREDNISOLONE IV 40 MG in SYRINGE 0 ML IV SCH ×2 (03:19→11:25)
[2017-06-25] MEDS: PIPERACILL/TAZOBAC IV 3.375 GM in DEXTROSE 5% 100ML 100 ML IV SCH ×2 (03:19→11:25)
--- NOTE | 2017-06-25 04:30 | NUR ---
PT RESTING IN BED COMFORTABLY, DENIES PAIN. LESS DROWSINESS NOTED, WAKENS TO VERBAL STIMULI. SEE EMR FOR ASSESSMENT, NO ACUTE CHANGES. BIPAP INTACT. USING THE URINAL TO VOID. CALL VÁSQUEZ WITHIN REACH, MONITORING.
--- NOTE | 2017-06-25 06:00 | NUR ---
PT RESTING IN BED COMFORTABLY, ON BIPAP. REPOSITIONED SELF. NSR ON MONITOR. CALL VÁSQUEZ WITHIN REACH, MONITORING.
[2017-06-25 07:02] LABS: HEMATOCRIT 42.7 % (42-52); HEMOGLOBIN 14.4 g/dL (14.0-18.0); MEAN CELL VOLUME 94.5 fL (80-100); MEAN CORPUSCULAR HEMOGLOBIN 31.9 pg (25-34); MEAN CORPUSCULAR HGB CONC 33.7 g/dl (32-36); MEAN PLATELET VOLUME 10.1 fL (7.4-10.4); PLATELET COUNT 135 K/uL (130-400); RED CELL DISTRIBUTION WIDTH SD 45.1 fL (36.4-46.3); WHITE BLOOD COUNT 3.37 K/uL (4.8-10.8)
[2017-06-25 07:29] LABS: CALCIUM 9.4 mg/dl (8.5-10.1); CREATININE 0.7 mg/dl (0.60-1.40); POTASSIUM 4.2 mmol/L (3.5-5.1)
--- NOTE | 2017-06-25 07:47 | Clinical Documentation Query ---
REBECCA Dumont : CLINICAL DOCUMENTATION QUERY Patient is a 57 year old male admitted for evaluation and treatment of acute on chronic hypoxic and hypercapnic respiratory failure. Documentation includes "altered mental status". As appropriate, consider this a the hallmark symptom of the diagnosis of encephalopathy as it was deemed "likely metabolic from hypoxic and hypercapnic state vs. toxic from high dose of narcotics". Please clarify and document as clinically appropriate. Thank you. In your clinical opinion is this patient being managed for: ( x) Metabolic and/or toxic encephalopathy secondary to hypoxic and hypercapnic state and/or narcotics ( ) Not Agree ( ) Other explanation of clinical findings (Please Explain) ( ) Unable to determine (Please Define) ( ) Need to Discuss The medical record reflects the following clinical findings, treatment, and risk factors. Clinical Indicators: As above Treatment: Supplemental O2, pulmonary consultation, BiPAP therapy, IV antibiotics, steroids, nebs, cultures, Tamiflu Risk Factors: Pneumonia, influenza, narcotic use/misuse Please clarify and document your clinical opinion in the progress notes and discharge summary. Terms such as "probable", "suspected", "likely", "questionable", "possible", or "still to be ruled out" are acceptable. IF IN AGREEMENT, YOU MUST DOCUMENT ABOVE DIAGNOSTIC STATEMENT IN DAILY PROGRESS NOTES AND DISCHARGE SUMMARY. This document is not part of the patient's record. Thank You, Az Monet, RN [phone]
--- NOTE | 2017-06-25 08:00 | NUR ---
A/ID: Drowsy, but AxOx4. SR on the monitor. No edema. Lungs diminished on 6.5L Oxymask. Moist, non-productive cough noted. Abdomen soft, non-tender. Voiding clear, yellow urine. Skin intact. IV sites intact, saline locked. Call cespedes within reach, encouraged to ring for assistance. Will continue to monitor.
--- NOTE | 2017-06-25 08:33 | PULMONARY PROGRESS NOTE ---
DATE: 06/25/2017 DATE: 06/25/2017 TIME: 8:00 a.m. SUBJECTIVE: The patient is feeling somewhat better. He is definitively more alert. He was awakening very readily this morning. He did wear the BiPAP overnight. His blood gas last evening had improved significantly over what it had been previously. The patient did not find the BiPAP comfortable, however. He denies nausea this morning. He thinks he is getting a little hungry. He has not coughed up any significant phlegm. OBJECTIVE: GENERAL: The patient was mildly lethargic but awakened readily. VITAL SIGNS: Current temperature is 36.9. Maximum temperature since admission 37.2. He currently has an OxyMask on at 7 liters. HEAD, EYES, EARS, NOSE, AND THROAT: Pupils were reactive to light. They were equal in size. Mouth exam shows an absence of teeth. NECK: Palpation of the neck reveals no lymph nodes. HEART: Rate is 96 per minute. The rhythm was regular. Blood pressure 161/104. CHEST: Respiratory rate is 20 breaths per minute. Scattered rhonchi are heard bilaterally. The breath sounds are diminished. Oxygen saturation was 94% on the OxyMask. This would be at 7 liters. ABDOMEN: Soft. Bowel sounds were present. There was no tenderness to palpation. EXTREMITIES: Showed no cyanosis, clubbing or edema. LABORATORY DATA: White blood cell count today is down to 3.37. Hemoglobin 14.4. Platelets 135,000. Blood gas done at 8:40 p.m. last evening showed a pH of 7.36 with a pCO2 of 54 and a pO2 of 82. That was done with BiPAP 10/5 on 40% oxygen. His prior pCO2 in the afternoon had been 61. His pH previously had been 7.32. Thus, both parameters reflected improvement. Today's electrolytes show sodium 131, potassium 4.2, chloride 96, bicarbonate 30. BUN was 10 with a creatinine of 0.7. IMPRESSIONS: 1. Respiratory failure -- acute on chronic -- with hypercarbia and hypoxia. 2. Acute influenza A. 3. Bullous emphysema with at least moderately severe chronic obstructive pulmonary disease. 4. Bilateral infiltrates suggestive for pneumonia -- possible aspiration type versus secondary to influenza. 5. Severe lethargy -- improved. COMMENTS AND RECOMMENDATIONS: Would continue with his current therapy. This would include the Zosyn, methylprednisolone, azithromycin, and neb treatments with levalbuterol and ipratropium. His diet can probably be increased today I suspect in light of his improvement in his mental status. He also does not feel nauseated this morning.
[2017-06-25] MEDS: NICOTINE 21 MG/24 HR TDSY TD SCH (08:46)
[2017-06-25] MEDS: SALMETEROL XINAFOATE 50MCG 28 BLISTER INH INH SCH ×2 (08:46→20:43)
[2017-06-25] MEDS: ATORVASTATIN 20 MG TAB PO SCH (08:46)
[2017-06-25] MEDS: OSELTAMIVIR PHOSPHATE 75 MG CAP PO SCH ×2 (08:46→20:43)
[2017-06-25] MEDS: POTASSIUM CHLORIDE 10 MEQ TABCR PO SCH (08:47)
[2017-06-25] MEDS: FUROSEMIDE 20 MG TAB PO SCH (08:47)
[2017-06-25] MEDS: CHOLECALCIFEROL 1000 INTER.UNIT TAB PO SCH (08:47)
[2017-06-25] MEDS ORDERED: TIOTROPIUM BROMIDE 5 PUFF/90 MCG INH INH SCH (09:00)
[2017-06-25] MEDS: OXYCODONE/ACETAMINOPHEN 10/325MG TAB PO PRN ×3 (11:29→19:41)
--- NOTE | 2017-06-25 12:00 | NUR ---
Patient reassessed, see EMR for full details. More alert than this morning. Transitioned to 6LNC, tolerating well at this time. Call cespedes within reach. Will continue to monitor.
[2017-06-25] MEDS: ENOXAPARIN 40 MG/0.4 ML SYR SC SCH (15:00)
--- NOTE | 2017-06-25 15:04 | Pain Management Consultation ---
Pain Management Consultation Date of Consultation Jun 25, 2017. Reason for Consultation Assistance with pain management. History Mr. Mike Saunders is a 57-year-old male admitted to [facility] with altered mental status and respiratory insufficiency. He has a history of expressing chronic axial low back and cervical spine pain for which she is being treated with chronic opiate therapy. It was alleged that he had taken inappropriate dose of his opioid resulting in change in his mental status this admission. He also has admission previously with similar symptoms with opiate misuse. Indicative history could not be obtained at this visit as Mr. Saunders was barely arousable and was unable to recall any events regarding his chronic opiate use or his chronic pain. He did not want to participate in the discussion nor did he want on examination at this time. He requested to be "left alone" at the present time and therefore further history cannot be obtained from him. Past Medical/Surgical History (1) PNA (pneumonia) (2) Acute and chronic respiratory failure ([id number]) (3) Hyponatremia (4) COPD exacerbation (5) Tobacco use disorder (6) Hyperlipidemia (7) Chronic back pain (8) Psoriasis (9) BPH (benign prostatic hypertrophy) (10) S/P tonsillectomy and adenoidectomy (11) H/O colonoscopy Family History FH: COPD (chronic obstructive pulmonary disease) FATHER BROTHER FH: alpha 1 antitrypsin deficiency BROTHER Social / Work History Alcohol Use: none Marital Status: Housing Status: lives with significant other Occupation: disabled Allergies Coded Allergies: No Known Allergies (Verified , 06/20/07) Medications Current Inpatient Medications Medications (Trade) Dose Ordered Sig/Margarita Route Start Time Stop Time Status Last Admin Dose Admin Enoxaparin Sodium (Lovenox Inj) 40 mg Q24H SC 06/24/17 14:30 07/24/17 14:29 06/24/17 14:25 40 MG Acetaminophen (Tylenol Tab) 650 mg Q4H PRN PO 06/24/17 12:30 07/24/17 12:29 Ondansetron HCl (Zofran Inj) 4 mg Q6H PRN IV 06/24/17 12:30 07/24/17 12:29 06/25/17 01:36 4 MG Azithromycin 500 mg/Dextrose 255 ml @ 250 mls/hr Q24H IV 06/24/17 15:00 06/29/17 14:59 06/24/17 14:23 250 MLS/HR Nicotine (Nicoderm Cq 21MG Patch) 1 patch QAM TD 06/25/17 09:00 07/25/17 08:59 Miscellaneous (Remove Nicoderm Patch) 1 ea HS N/A 06/24/17 21:00 07/24/17 20:59 Methylprednisolone Sodium Succinate 40 mg/Syringe 0.64 ml @ 1.5 mls/min Q8H IV 06/24/17 19:30 07/24/17 19:29 06/25/17 03:19 1.5 MLS/MIN Piperacillin Sod/ Tazobactam Sod 3.375 gm/Dextrose 115 ml @ 28.75 mls/ hr Q8H IV 06/24/17 20:00 07/01/17 19:59 06/25/17 03:19 28.75 MLS/HR Atorvastatin Calcium (Lipitor Tab) 20 mg DAILY PO 06/25/17 09:00 07/25/17 08:59 Furosemide (Lasix Tab) 20 mg DAILY PO 06/25/17 09:00 07/25/17 08:59 Oxycodone/ Acetaminophen (Percocet 10-325MG Tab) 1 tab Q4 PRN PO 06/24/17 13:45 07/08/17 13:44 Salmeterol Xinafoate (Serevent Diskus Inh) 1 puffs BID INH 06/24/17 21:00 07/24/17 20:59 06/24/17 19:13 1 PUFFS Potassium Chloride (Klor-Con M10) 10 meq DAILY PO 06/25/17 09:00 07/25/17 08:59 Ipratropium Barton (Atrovent 0.02% 0.5MG/2.5ML Neb) 0.5 mg Q6R INH 06/24/17 15:00 07/24/17 14:59 06/25/17 06:56 0.5 MG Levalbuterol (Xopenex 1.25MG/ 0.5ML Neb) 1.25 mg Q6R INH 06/24/17 15:00 07/24/17 14:59 06/25/17 06:56 1.25 MG Piperacillin Sod/ Tazobactam Sod (Consult) 1 ea UD PRN N/A 06/24/17 14:15 07/24/17 14:14 Cholecalciferol (Vitamin D Tab) 2,000 inter.unit DAILY PO 06/25/17 09:00 07/25/17 08:59 Oseltamivir Phosphate (Tamiflu Cap) 75 mg BID PO 06/24/17 21:00 06/29/17 20:59 06/24/17 19:14 75 MG Physical Exam Height & Weight: Height 5 feet, 7.00 inches. Weight 75.600 (Kilograms) 166 (Pounds) Last Vital Signs Documentation Date Time Temp Pulse Resp B/P (MAP) Pulse Ox O2 Delivery O2 Flow Rate FiO2 06/25/17 07:08 36.9 93 20 161/104 (123) 92 Nasal Cannula 4.0 06/25/17 06:57 40 Exam: Upon entering the room, Mr. Saunders was noted to be responsive only to loud noise and tactile stimulation. He would fall asleep immediately after opening his eyes. He was tachypneic and with supplemental oxygen via facemask. He requested that he not be interrupted with his sleep and did not want to participate in examination. Laboratory Laboratory Results (Last CBC): 06/25/17 06:[address]: non enhanced, reports reviewed CT Findings C SPINE CT IMPRESSION: 1. No acute fractures within the cervical spine. 2. Right apical lucency which favors a large bulla. Electronically signed by: Ronaldo Dubon M.D. 06/24/2017 11:30 AM Dictated Date/Time: 06/24/2017 11:[address] OF HEAD: Impression: No acute intracranial abnormality. Electronically signed by: Ronaldo Dubon M.D. 06/24/2017 11:21 AM Dictated Date/Time: 06/24/2017 11:12 AM Assessment 1. History of chronic back pain and cervical spine pain. 2. Opioid misuse disorder. 3. COPD with respiratory failure. Recommendations 1. Unable to make any recommendations regarding outpatient opiate management at this time. 2. When patient is medically stable and wishes to be reevaluated, please reconsult pain management service.
[2017-06-25] MEDS: AZITHROMYCIN IV 500 MG in DEXTROSE 5% 250ML 250 ML IV SCH (15:42)
--- NOTE | 2017-06-25 15:45 | NUR ---
A/ID: Patient is AAOX4, denies n/t, complains of 8/10 pain to back-given percocet. LS diminished on 3LNC, occasional expiratory wheezing, denies SOB, moist productive cough. SR on monitor, denies CP/palp, PPP, no edema noted. Abdomen soft nontender nondistended, denies n/v, tolerating diet. Voids in urinal. Skin intact. OOB with supervision in room. Patient still receiving IV antibiotics and PO tamiflu, plan to discharge home when stable.
--- NOTE | 2017-06-25 18:50 | Progress Note ---
Internal Med Progress Note Date of Service: Jun 25, 2017. Provider Documentation: SUBJECTIVE: awake and alert today , no confusion or agitation noted has minimum cough no fever or chills still hypoxic requiring 4 L 02 via nasal canula ( baseline 2-3 L ) desaturated with attempt to wean off no complain of headache or body ache mentions of having normal energy and appetite OBJECTIVE: Vital Signs-as noted below Exam: General-no sign of distress Eyes-sclera non icteric , PERRLA/EOMI ENT-moist oral mucosa , normal oropharynx Neck-no JVD , no carotid bruit , trachea midline Lungs-Coarse crackles on both side , + rales on rt base, no wheeze Heart-regular S1/S2 Abdomen-soft, non tender, active bowel sound Extremities-no rash or deformity Neuro-AAO x3, no focal neurological deficit Lab data as noted below. ASSESSMENT & PLAN: This is a 57yo M with a PM h/o chronic lower back pain and bilateral sciatica, h /o narcotic dependence, HTN, HLD and Vit D deficiency who presented with worsening productive cough x 2 days. Acute on chronic hypoxic and hypercapnic respiratory failure: Hx of severe COPD (on 2-3L home O2, h/o alpha 1 antitrypsin deficiency), tobacco use disorder( Smokes 2.5 -3 pk cig a day) -Due Influenza A infection /Rt lower lobe pneumonia -presented Respiratory acidosis on ABG with pH of 7.32, pO2 of 70, pco2 of 61 empiric Abx with Zosyn -respiratory status improved -no sign of respiratory distress -sputum culture -normal keisha , no fever or chills , normal white count will D/c Zosyn change ABx to Oral Doxycycline -complete 7 days course IV Solu Medrol being weaned down as no audible wheeze can be changed to PO Prednisone tomorrow will need gradual taper pt is now awake and alert , denies of any SOB or PENDLETON still requiring higher than baseline supplemental 02 4 L via NC cont Neb tx /pulmonary toileting wean down 02 as tolerated Smokes 2.5 -3 pk cig a day -may need higher 02 requirement at baseline due to pulmonary damage D/w CM -whether pt will need 2 step test to return home with higher 02 INFLUENZA A : on Tamiflu complete 5 days course Droplet precaution Altered mental status/CONFUSION /METABOLIC ENCEPHALOPATHY -Likely due to hypoxia and hypercapnic state vs. toxic from high dose of narcotics -in ER pt was slow to respond mental status improved to baseline today awake alert , oriented to time , place , person recalls coming to ER yesterday , had cough for few days answering questions appropriately CT head negative for acute change monitor Tobacco use disorder: -Smokes 2.5-3 ppd -Nicotine patch -Smoking cessation counselling H/o chronic lower back pain w/ sciatica: -home oxycodone and Percocet was kept on hold as during admission pt was found lethargic slow to respond -pain management consulted appreciate input HTN: -Normotensive -resumed out pt meds HLD: -Cont statin Vit D Deficiency: -Cont home dose Vit D supplementation DVT Ppx: Lovenox SQ Code status: FULL DISPOSITION PT/OT eval expected to be discharge home when medically stable will benefit with home health visiting nurse Medicine follow up with Dr Myers left message in Pt' phone to update Vital Signs: Date Time Temp Pulse Resp B/P (MAP) Pulse Ox O2 Delivery O2 Flow Rate FiO2 06/25/17 16:00 Nasal Cannula 3.0 06/25/17 15:03 36.5 91 20 117/74 (88) 98 Nasal Cannula 4.0 06/25/17 14:19 94 21 90 Nasal Cannula 4.0 06/25/17 12:14 36.8 99 20 117/79 (92) 90 Nasal Cannula 4.0 06/25/17 12:00 Nasal Cannula 6.0 06/25/17 08:00 Oxymask 6.5 06/25/17 07:08 36.9 93 20 161/104 (123) 92 Nasal Cannula 4.0 06/25/17 06:57 97 93 40 06/25/17 06:56 97 21 93 BiPAP/CPAP 40 06/25/17 04:00 96 BiPAP 40 06/25/17 03:48 37.0 95 21 149/97 (114) 97 BiPAP 06/25/17 02:10 100 95 40 06/25/17 02:00 97 20 92 Nasal Cannula 6.0 06/24/17 23:59 96 BiPAP 40 06/24/17 23:52 36.8 101 22 143/93 (110) 99 BiPAP 06/24/17 20:25 104 93 40 06/24/17 20:00 98 BiPAP 40 06/24/17 19:20 101 20 92 Nasal Cannula 4.0 Lab Results: Results Past 24 Hours Test 06/24/17 20:39 06/25/17 06:36 Range/Units Arterial Blood pH 7.36 7.35-7.45 Arterial Blood Partial Pressure CO2 54 35-46 mmHg Arterial Blood Partial Pressure O2 82 80-95 mm/Hg Arterial Blood HCO3 30 19-24 mmol/L Arterial Blood Oxygen Saturation 95.6 90-95 % Arterial Blood Base Excess 3.1 -9-1.8 mEq/L Arterial Blood Gas Delivery BIPAP- 40 PERCENT Eleazar Test POS POS White Blood Count 3.37 4.8-10.8 K/uL Red Blood Count 4.52 4.7-6.1 M/uL Hemoglobin 14.4 14.0-18.0 g/dL Hematocrit 42.7 42-52 % Mean Corpuscular Volume 94.5 80-100 fL Mean Corpuscular Hemoglobin 31.9 25-34 pg Mean Corpuscular Hemoglobin Concent 33.7 32-36 g/dl RDW Standard Deviation 45.1 36.4-46.3 fL RDW Coefficient of Variation 13.0 11.5-14.5 % Platelet Count 135 130-400 K/uL Mean Platelet Volume 10.1 7.4-10.4 fL Sodium Level 131 136-145 mmol/L Potassium Level 4.2 3.5-5.1 mmol/L Chloride Level 96 98-107 mmol/L Carbon Dioxide Level 30 21-32 mmol/L Anion Gap 5.0 3-11 mmol/L Blood Urea Nitrogen 10 7-18 mg/dl Creatinine 0.70 0.60-1.40 mg/dl Est Creatinine Clear Calc Drug Dose 107.6 ml/min Estimated GFR () 120.6 Estimated GFR (Non- 104.0 BUN/Creatinine Ratio 14.9 10-20 Random Glucose 122 70-99 mg/dl Calcium Level 9.4 8.5-10.1 mg/dl Microbiology Results 06/24/17 Gram Stain - Final, Resulted 06/24/17 Sputum Culture - Preliminary, Resulted LIGHT NORMAL KEISHA Present, Final Rep...
[2017-06-25] MEDS ORDERED: NURSING VERBAL MED ORDER ONE (19:30)
[2017-06-25] MEDS ORDERED: ALUMINUM/MAGNESIUM/SIMETH (MAALOX MAX) 30 ML UDC PO PRN (19:45)
--- NOTE | 2017-06-25 19:45 | NUR ---
A: Full assessment complete. See EMR. Pt is A&O x 4. SR/ST 90s-100s on the monitor. Pt is currently on 4L via N/C. Saline locked x 2, one noted to be painful with flushing. Will remove per protocol. Pt c/o bilateral neck/back pain. See EMAR for pain medication administration. Will continue to monitor. Call cespedes in reach.
[2017-06-25] MEDS: DOXYCYCLINE HYCLATE 100 MG CAP PO SCH (20:43)
--- NOTE | 2017-06-25 23:15 | NUR ---
A: Assessment complete. See EMR. SR/ST 90s-100s on the monitor. Remains on 4L via N/C. Saline locked x 1. Will continue to monitor. Call cespedes in reach.
[2017-06-26] VITALS (10 sets, daily range): BP systolic 116–134; BP diastolic 68–92; PULSE 87–104; TEMP 36.6–36.7; O2SAT 86–96
[2017-06-26] MEDS ORDERED: METHYLPREDNISOLONE IV 40 MG in SYRINGE 0 ML IV SCH
[2017-06-26] MEDS: OXYCODONE/ACETAMINOPHEN 10/325MG TAB PO PRN ×6 (00:37→23:20)
[2017-06-26] MEDS: IPRATROPIUM BROMIDE NEB SOLN 0.02% 2.5 ML VIAL INH SCH ×4 (02:04→19:51)
[2017-06-26] MEDS: LEVALBUTEROL 1.25MG/0.5ML NEB INH SCH ×4 (02:04→19:52)
--- NOTE | 2017-06-26 03:20 | NUR ---
A: Assessment complete. See EMR. SR 80s-90s on the monitor. Currently on 3L via N/C. Saline locked x 1. Will continue to monitor. Call cespedes in reach.
[2017-06-26] MEDS: OSELTAMIVIR PHOSPHATE 75 MG CAP PO SCH ×2 (07:55→20:48)
[2017-06-26] MEDS: SALMETEROL XINAFOATE 50MCG 28 BLISTER INH INH SCH ×2 (07:55→20:47)
[2017-06-26] MEDS: NICOTINE 21 MG/24 HR TDSY TD SCH (07:55)
[2017-06-26] MEDS: POTASSIUM CHLORIDE 10 MEQ TABCR PO SCH (07:55)
[2017-06-26] MEDS: CHOLECALCIFEROL 1000 INTER.UNIT TAB PO SCH (07:56)
[2017-06-26] MEDS: FUROSEMIDE 20 MG TAB PO SCH (07:56)
[2017-06-26] MEDS: DOXYCYCLINE HYCLATE 100 MG CAP PO SCH ×2 (07:56→20:48)
[2017-06-26] MEDS: ATORVASTATIN 20 MG TAB PO SCH (07:56)
--- NOTE | 2017-06-26 08:00 | NUR ---
A/ID: AxOx4. Complaining of 8/10 chronic pain in back and neck. SR on the monitor. No edema. Lungs coarse, diminished on 5L Oxymask. Abdomen soft, non-tender. Voiding in the urinal. Skin intact. IV site intact, saline locked. Call cespedes within reach, encouraged to ring for assistance. Will continue to monitor.
--- NOTE | 2017-06-26 08:27 | PULMONARY PROGRESS NOTE ---
DATE: 06/26/2017 TIME: 07:45 a.m. SUBJECTIVE: Once again, the patient was sleeping when I came in. He did awake readily. He is complaining of nasal congestion. Apparently, they had replaced his nasal cannula with an OxyMask due to this. He says he is somewhat short of breath, but I believe it is difficult for him to separate out the nasal congestion versus chest congestion. He has some cough. He had difficult time sleeping he states due to a lot of interruptions. He did not wear BiPAP last night. The patient told me that they asked him if he thought he needed it and he told them no. He is complaining of nausea. He does not feel very hungry. He was started on doxycycline yesterday. It is possible that this is contributing to the nausea, although we had some vomiting at home that was suspected for possibly causing aspiration. OBJECTIVE: GENERAL: The patient did not appear in distress. VITAL SIGNS: Temperature is 36.6. He has not had any significant fevers. His maximum temperature since admission was 37.2. The heart rate was 92 per minute. The rhythm is regular. Blood pressure 116/73. HEENT: Nasal exam shows a deviated septum with near occlusion on the left and he has nasal mucus on the right side. Mouth was dry. LUNGS: Lung millan revealed decreased breath sounds bilaterally. His oxygen saturations were only 91% on a 5-liter OxyMask. The mask was off for about 15 or 20 seconds for me to examine his nasal passages and pharynx and his saturations soon dropped down to 88%. ABDOMEN: Seemingly soft. There were some mild bowel sounds heard. There was no tenderness. EXTREMITIES: Showed no edema. There have been no lab studies done today. IMPRESSIONS: 1. Respiratory failure -- acute on chronic with hypoxia and hypercarbia. 2. Influenza A. 3. Emphysema. 4. Bilateral lower lobe infiltrates, which could be compatible with aspiration, but could also be secondary to influenza pneumonia. This is superimposed upon chronic interstitial changes. COMMENTS AND RECOMMENDATIONS: I believe the patient is clinically improved, but he is more hypoxic than I would expect with the OxyMask. As noted, he is complaining of nausea. He does have Zofran ordered. I believe the steroids can be decreased further. The only problem changing to p.o. is his nausea. I am going to repeat a chest x-ray. If there has been progression of the infiltrates, I would restart the Zosyn that was stopped yesterday. That would be a better agent for aspiration if indeed that would seem to be the case. It is also possible that doxycycline is causing nausea. I am going to reassess his blood gases again. If his pCO2 was still elevated, we will advise that he continue with at bedtime BiPAP if he is willing to try it. MTDD
--- NOTE | 2017-06-26 08:45 | NUR ---
Case Management: Received discharge planning consult on this pt. It appears Dr Diamond feels pt may need home health follow up. I attempted to meet with pt at this time but he was being taken to xray. Will follow up. Addendum: 06/26/17 at 1646 by Mari Cruz SERV Met with pt this afternoon. Pt lives with his in a one story home. He currently uses oxygen thru [facility]. Pt has concentrator and portables. I discussed having a home health nurse check in on pt when he is discharged. He is reluctant to commit to this. Pt does state that he does not go out that often and elvia when it is cold. I encouraged him to think about having a home health nurse come out and check on him as it is going to very cold this coming week. He will think about it.
--- NOTE | 2017-06-26 09:23 | DIAGNOSTIC IMAGING REPORT ---
CHEST 2 VIEWS ROUTINE CLINICAL HISTORY: 57 years-old Male presenting with f/y on infiltrates. TECHNIQUE: PA and lateral views of the chest were obtained. COMPARISON: 06/24/2017. FINDINGS: Atherosclerosis of the aortic arch. Cardiac silhouette normal in size. Heterogeneity of lung parenchyma with hyperinflation. Decreased prominence of bibasilar hazy and reticular opacities. No pleural effusion or pneumothorax. Osteopenia may be present. Upper abdomen normal. IMPRESSION: 1. Decreased prominence of bibasilar infiltrates. 2. Emphysema. Electronically signed by: Duane Cuevas M.D. 06/26/2017 9:22 AM Dictated Date/Time: 06/26/2017 9:21 AM
[2017-06-26] MEDS: SODIUM CHLORIDE 0.65% NA SOLN 45 ML (OCEAN) SCH ×4 (09:31→20:47)
[2017-06-26] MEDS: ONDANSETRON INJ 2 MG/ML 2 ML VIAL IV PRN (09:31)
--- NOTE | 2017-06-26 12:00 | NUR ---
Patient reassessed, see EMR for full details. VSS. Call cespedes within reach. Will continue to monitor.
[2017-06-26] MEDS: METHYLPREDNISOLONE IV 20 MG in SYRINGE 0 ML IV SCH ×2 (12:05→23:21)
[2017-06-26] MEDS: ENOXAPARIN 40 MG/0.4 ML SYR SC SCH (13:45)
--- NOTE | 2017-06-26 16:00 | NUR ---
A: A&O x4, reported chronic back pain 12/05, sinus tackycardia with PVC on the monitor, HR 105, patient reported he took off his oximask and put on nasal cannula, changed the rate to 4L, reporting "it was just too high", continus pulse ox read 95%.
--- NOTE | 2017-06-26 18:11 | Progress Note ---
Internal Med Progress Note Date of Service: Jun 26, 2017. Provider Documentation: SUBJECTIVE: says having nasal congestion still has sob no chest pain hemodynamics stable afebrile OBJECTIVE: Vital Signs-as noted below Exam: General-alert and oriented. Not in distress ENT-Normal hearing Neck-no neck masses supple Lungs-cta b/l no wheezing no crackles Heart-S1 and S2 heard regular rate and rthym, no murmurs Abdomen-Soft bowel sounds present non tender no distension Extremities-no edema no erythema Neuro-alert and awake moves extremities Lab data as noted below. ASSESSMENT & PLAN: This is a 57yo M with a PM h/o chronic lower back pain and bilateral sciatica, h /o narcotic dependence, HTN, HLD and Vit D deficiency who presented with worsening productive cough x 2 days. Acute on chronic hypoxic and hypercapnic respiratory failure: Hx of severe COPD (on 2-3L home O2, h/o alpha 1 antitrypsin deficiency), tobacco use disorder( Smokes 2.5 -3 pk cig a day) Influenza A infection /Rt lower lobe pneumonia on Tamiflu initially was on iv Zosyn currently on Doxycycline. Pulmonary on board still requiring 4-5lts oxygen tapering steroids cxr today-decreased prominence of bibasilar infiltrates INFLUENZA A : on Tamiflu complete 5 days course Droplet precaution Altered mental status/CONFUSION /METABOLIC ENCEPHALOPATHY secondary to above improved CT head negative for acute change monitor Tobacco use disorder: Smokes 2.5-3 ppd Nicotine patch Smoking cessation counselling H/o chronic lower back pain w/ sciatica: On home oxycodone and Percocet prn seen by pain management appreciate input HTN: on lasix HLD: on statin Vit D Deficiency: home dose Vit D supplementation DVT Ppx: Lovenox SQ. Code status: FULL DISPOSITION Monitor in tele to be determined Vital Signs: Date Time Temp Pulse Resp B/P (MAP) Pulse Ox O2 Delivery O2 Flow Rate FiO2 06/26/17 17:15 Nasal Cannula 4.0 94 06/26/17 16:09 36.6 104 18 123/86 (98) 93 Oxymask 5.0 06/26/17 14:03 95 20 91 Mask 5.0 06/26/17 12:00 Oxymask 5.0 06/26/17 11:33 36.6 98 19 121/68 (85) 90 Mask 5.0 06/26/17 08:40 94 06/26/17 08:00 Oxymask 5.0 06/26/17 07:43 36.6 92 20 134/92 (106) 94 Mask 5.0 06/26/17 07:15 87 20 93 Mask 5.0 06/26/17 04:00 Nasal Cannula 3.0 06/26/17 03:17 36.6 92 22 116/73 (87) 94 Nasal Cannula 3.0 06/26/17 02:04 87 22 86 Nasal Cannula 4.0 06/26/17 00:01 Nasal Cannula 4.0 06/25/17 23:11 36.6 99 24 133/89 (104) 89 Nasal Cannula 4.0 06/25/17 20:00 Nasal Cannula 4.0 06/25/17 19:24 91 20 90 Nasal Cannula 4.0 06/25/17 19:04 36.5 91 22 124/84 (97) 97 Nasal Cannula 4.0 Lab Results: Results Past 24 Hours Test 06/26/17 09:23 Range/Units Arterial Blood pH 7.45 7.35-7.45 Arterial Blood Partial Pressure CO2 48 35-46 mmHg Arterial Blood Partial Pressure O2 72 80-95 mm/Hg Arterial Blood HCO3 32 19-24 mmol/L Arterial Blood Oxygen Saturation 94.6 90-95 % Arterial Blood Base Excess 6.8 -9-1.8 mEq/L Arterial Blood Gas Delivery 5 LITER Eleazar Test POS POS
[2017-06-27] VITALS (11 sets, daily range): BP systolic 118–153; BP diastolic 74–98; PULSE 83–98; TEMP 36.3–36.8; O2SAT 91–96
--- NOTE | 2017-06-27 | NUR ---
A: Pt c/o back pain and requesting Percocet for pain. VSS and PT is NSR in the 90's. Pt has a continuous pulsox with an 02 saturation of 91% on 3L. Dr's order states to maintain o2 saturation between 88-92%. See EMR for further documentation. Pt will continue to be monitored.
[2017-06-27] MEDS: IPRATROPIUM BROMIDE NEB SOLN 0.02% 2.5 ML VIAL INH SCH ×4 (02:22→20:35)
[2017-06-27] MEDS: LEVALBUTEROL 1.25MG/0.5ML NEB INH SCH ×4 (02:23→20:35)
--- NOTE | 2017-06-27 04:00 | NUR ---
A: no change in assessment. Pt continues to c/o lower back pain and requests Percocet. See EMR for further documentation. Pt will continue to be monitored.
[2017-06-27] MEDS: OXYCODONE/ACETAMINOPHEN 10/325MG TAB PO PRN ×5 (04:27→21:23)
[2017-06-27 07:13] LABS: HEMATOCRIT 42.2 % (42-52); HEMOGLOBIN 14.3 g/dL (14.0-18.0); LYMPH % 17.2 %; LYMPH ABS # 0.73 K/uL (1.2-3.4); MEAN CELL VOLUME 93.4 fL (80-100); MEAN CORPUSCULAR HEMOGLOBIN 31.6 pg (25-34); MEAN CORPUSCULAR HGB CONC 33.9 g/dl (32-36); MEAN PLATELET VOLUME 10.1 fL (7.4-10.4); MONO % 10.4 %; MONO ABS # 0.44 K/uL (0.11-0.59); NEUT % 72.4 %; NEUT ABS # 3.07 K/uL (1.4-6.5); PLATELET COUNT 128 K/uL (130-400); RED CELL DISTRIBUTION WIDTH CV 12.9 % (11.5-14.5); RED CELL DISTRIBUTION WIDTH SD 44.3 fL (36.4-46.3); WHITE BLOOD COUNT 4.24 K/uL (4.8-10.8)
[2017-06-27 07:50] LABS: CALCIUM 9.2 mg/dl (8.5-10.1); CREATININE 0.69 mg/dl (0.60-1.40); POTASSIUM 4.3 mmol/L (3.5-5.1)
--- NOTE | 2017-06-27 08:00 | NUR ---
A/ID: AxOx4. Complaining of 8/10 back/shoulder pain, see eMAR for medication administration. SR on the monitor. No edema noted. Lungs diminished on 3LNC. Abdomen soft, non-tender. Voiding in the urinal without difficulty. IV site intact, saline locked. Call cespedes within reach, encouraged to ring for assistance. Will continue to monitor.
[2017-06-27] MEDS: NICOTINE 21 MG/24 HR TDSY TD SCH (08:15)
[2017-06-27] MEDS: CHOLECALCIFEROL 1000 INTER.UNIT TAB PO SCH (08:16)
[2017-06-27] MEDS: FUROSEMIDE 20 MG TAB PO SCH (08:17)
[2017-06-27] MEDS: DOXYCYCLINE HYCLATE 100 MG CAP PO SCH ×2 (08:17→20:01)
[2017-06-27] MEDS: SALMETEROL XINAFOATE 50MCG 28 BLISTER INH INH SCH ×2 (08:17→20:02)
[2017-06-27] MEDS: OSELTAMIVIR PHOSPHATE 75 MG CAP PO SCH ×2 (08:17→20:01)
[2017-06-27] MEDS: ATORVASTATIN 20 MG TAB PO SCH (08:17)
[2017-06-27] MEDS: SODIUM CHLORIDE 0.65% NA SOLN 45 ML (OCEAN) SCH ×4 (08:18→20:01)
[2017-06-27] MEDS: POTASSIUM CHLORIDE 10 MEQ TABCR PO SCH (08:18)
--- NOTE | 2017-06-27 12:00 | NUR ---
Patient reassessed, see EMR for full details. VSS. Call cespedes within reach. Will continue to monitor.
[2017-06-27] MEDS: METHYLPREDNISOLONE IV 20 MG in SYRINGE 0 ML IV SCH (12:01)
[2017-06-27] MEDS: ENOXAPARIN 40 MG/0.4 ML SYR SC SCH (13:23)
--- NOTE | 2017-06-27 15:44 | Progress Note ---
Internal Med Progress Note Date of Service: Jun 27, 2017. Provider Documentation: SUBJECTIVE: feeling much better today afebrile nasal congestion improved sob and cough improved eating ok OBJECTIVE: Vital Signs-as noted below Exam: General-alert and oriented. Not in distress ENT-Normal hearing Neck-no neck masses supple Lungs-cta b/l no wheezing no crackles Heart-S1 and S2 heard regular rate and rthym, no murmurs Abdomen-Soft bowel sounds present non tender no distension Extremities-no edema no erythema Neuro-alert and awake moves extremities Lab data as noted below. ASSESSMENT & PLAN: This is a 57yo M with a PM h/o chronic lower back pain and bilateral sciatica, h /o narcotic dependence, HTN, HLD and Vit D deficiency who presented with worsening productive cough x 2 days. Acute on chronic hypoxic and hypercapnic respiratory failure: Hx of severe COPD (on 2-3L home O2, h/o alpha 1 antitrypsin deficiency), tobacco use disorder( Smokes 2.5 -3 pk cig a day) Influenza A infection /Rt lower lobe pneumonia on Tamiflu initially was on iv Zosyn currently on Doxycycline. Pulmonary on board oxygen requirements back to baseline tapering steroids cxr 06/26/17-decreased prominence of bibasilar infiltrates improving INFLUENZA A : on Tamiflu complete 5 days course Droplet precaution stable Altered mental status/CONFUSION /METABOLIC ENCEPHALOPATHY secondary to above improved CT head negative for acute change monitor Tobacco use disorder: Smokes 2.5-3 ppd Nicotine patch Smoking cessation counselling H/o chronic lower back pain w/ sciatica: On home oxycodone and Percocet prn seen by pain management appreciate input stable HTN: on lasix HLD: on statin Vit D Deficiency: home dose Vit D supplementation DVT Ppx: Lovenox SQ. Code status: FULL DISPOSITION Monitor in tele pt/ot possible d/c in 1-2 days Vital Signs: Date Time Temp Pulse Resp B/P (MAP) Pulse Ox O2 Delivery O2 Flow Rate FiO2 06/27/17 14:05 92 18 95 Nasal Cannula 3.0 06/27/17 12:00 Nasal Cannula 3.0 06/27/17 11:27 36.3 92 19 128/85 (99) 96 Nasal Cannula 3.0 06/27/17 08:00 Nasal Cannula 3.0 06/27/17 07:41 36.4 92 19 140/95 (110) 91 Mask 3.0 06/27/17 07:01 87 18 93 Nasal Cannula 3.0 06/27/17 04:00 94 Nasal Cannula 3.0 06/27/17 03:46 36.8 83 18 124/78 (93) 94 Nasal Cannula 06/27/17 00:00 91 Nasal Cannula 3.0 06/27/17 00:00 36.7 98 118/74 (89) 91 Nasal Cannula 3.0 06/26/17 20:00 Nasal Cannula 4.0 06/26/17 19:50 93 20 96 Nasal Cannula 5.0 06/26/17 19:41 36.7 93 18 120/85 (97) 96 Nasal Cannula 4.0 06/26/17 17:15 Nasal Cannula 4.0 94 06/26/17 16:09 36.6 104 18 123/86 (98) 93 Oxymask 5.0 Lab Results: Results Past 24 Hours Test 06/27/17 06:35 Range/Units White Blood Count 4.24 4.8-10.8 K/uL Red Blood Count 4.52 4.7-6.1 M/uL Hemoglobin 14.3 14.0-18.0 g/dL Hematocrit 42.2 42-52 % Mean Corpuscular Volume 93.4 80-100 fL Mean Corpuscular Hemoglobin 31.6 25-34 pg Mean Corpuscular Hemoglobin Concent 33.9 32-36 g/dl Platelet Count 128 130-400 K/uL Mean Platelet Volume 10.1 7.4-10.4 fL Neutrophils (%) (Auto) 72.4 % Lymphocytes (%) (Auto) 17.2 % Monocytes (%) (Auto) 10.4 % Eosinophils (%) (Auto) 0.0 % Basophils (%) (Auto) 0.0 % Neutrophils # (Auto) 3.07 1.4-6.5 K/uL Lymphocytes # (Auto) 0.73 1.2-3.4 K/uL Monocytes # (Auto) 0.44 0.11-0.59 K/uL Eosinophils # (Auto) 0.00 0-0.5 K/uL Basophils # (Auto) 0.00 0-0.2 K/uL RDW Standard Deviation 44.3 36.4-46.3 fL RDW Coefficient of Variation 12.9 11.5-14.5 % Immature Granulocyte % (Auto) 0.0 % Immature Granulocyte # (Auto) 0.00 0.00-0.02 K/uL Sodium Level 131 136-145 mmol/L Potassium Level 4.3 3.5-5.1 mmol/L Chloride Level 95 98-107 mmol/L Carbon Dioxide Level 30 21-32 mmol/L Anion Gap 6.0 3-11 mmol/L Blood Urea Nitrogen 13 7-18 mg/dl Creatinine 0.69 0.60-1.40 mg/dl Est Creatinine Clear Calc Drug Dose 109.1 ml/min Estimated GFR () 121.3 Estimated GFR (Non- 104.6 BUN/Creatinine Ratio 18.8 10-20 Random Glucose 113 70-99 mg/dl Calcium Level 9.2 8.5-10.1 mg/dl Magnesium Level 2.0 1.8-2.4 mg/dl
--- NOTE | 2017-06-27 16:00 | NUR ---
Patient reassessed, see EMR for full details. VSS. On 2LNC. Call cespedes within reach. Will continue to monitor.
--- NOTE | 2017-06-27 16:36 | PULMONARY PROGRESS NOTE ---
DATE: 06/27/2017 TIME: 02:50 p.m. SUBJECTIVE: The patient is feeling much better. He has been up walking around his room without too much difficulty. He states he is not noticing significant shortness of breath. His cough is less. OBJECTIVE: GENERAL: The patient appeared comfortable at rest. VITAL SIGNS: Temperature is 36.3. Heart rate is 92 per minute. The rhythm is regular. Blood pressure 128/85. LUNGS: Lung millan revealed diminished breath sounds. There was a faint rales at the left lower lobe area. Respiratory rate was 18 breaths per minute. His oxygen saturation on room air was 88%. The patient had forgotten to put his nasal cannula back in after a breathing treatment. It had been 95% on 3 liters. EXTREMITIES: Showed no cyanosis, clubbing or edema. LABORATORY DATA: White count today remains low at 4.24. Hemoglobin 14.3. Platelets are 128,000. The patient had a blood gas done yesterday on 5 liters, showing a pH of 7.45 with a pCO2 of 48 and a pO2 of 72. This has shown progressive improvement since he came in. It should be noted the patient refused BiPAP again last night. Electrolytes show sodium 131, potassium 4.3, chloride 95, and bicarbonate 30. BUN was 13 with a creatinine of 0.69. IMPRESSIONS: 1. Respiratory failure -- acute on chronic with hypoxia and hypercarbia. 2. Acute influenza A. 3. Emphysema. 4. Bilateral pneumonia. COMMENTS: The patient seems to be doing well. I would think he likely could be discharged soon, possibly tomorrow. He seems relatively stable. It would appear he is going to need his oxygen continuous. Perhaps a 2-step should be done. I spoke with him about the need for total cessation of smoking. I do not believe he is committed. He indicated that his also smokes and this makes it hard to quit as well. His steroids can be changed to prednisone. We will sign off for now and see him only if specifically requested.
--- NOTE | 2017-06-27 19:55 | NUR ---
A: Full assessment complete. See EMR. Pt is A&O x 4. SR 80s-90s on the monitor. Pt is on 3L via N/C. Saline locked x 1. C/O 02/04 bilateral back and neck pain. Previously medicated for pain, see EMAR. No other needs verbalized or apparent at this time. Will continue to monitor. Call cespedes in reach.
--- NOTE | 2017-06-27 23:10 | NUR ---
A: Assessment complete. See EMR. Vital signs obtained and noted to be stable. SR 80s-90s on the monitor. Pt is currently on 2L via N/C. Saline locked x 1. Verbalizes pain to be "okay" while he is laying still and that "I wasn't really thinking about it so it must not be too bad." No needs verbalized or apparent at this time. Will continue to monitor. Call csepedes in reach.
[2017-06-28] VITALS (7 sets, daily range): BP systolic 137–150; BP diastolic 83–100; PULSE 88–103; TEMP 36.5–36.7; O2SAT 88–95
[2017-06-28] MEDS: OXYCODONE/ACETAMINOPHEN 10/325MG TAB PO PRN ×3 (01:19→09:31)
[2017-06-28] MEDS: LEVALBUTEROL 1.25MG/0.5ML NEB INH SCH ×2 (01:37→07:06)
[2017-06-28] MEDS: IPRATROPIUM BROMIDE NEB SOLN 0.02% 2.5 ML VIAL INH SCH ×2 (01:37→07:06)
--- NOTE | 2017-06-28 04:00 | NUR ---
A: Assessment complete. See EMR. Vital signs stable. SR 70s-80s on the monitor. Remains on 2L via N/C. Saline locked x 1. Pt resting in bed with eyes closed. No s/s of distress. Breathing easy and unlabored. Will continue to monitor. Call cespedes in reach.
[2017-06-28 07:03] LABS: BASO % 0.2 %; BASO ABS # 0.01 K/uL (0-0.2); EOS % 0.4 %; EOS ABS # 0.02 K/uL (0-0.5); HEMATOCRIT 42.4 % (42-52); HEMOGLOBIN 14.4 g/dL (14.0-18.0); IG# 0.01 K/uL (0.00-0.02); LYMPH ABS # 1.94 K/uL (1.2-3.4); MEAN CELL VOLUME 93.6 fL (80-100); MEAN CORPUSCULAR HEMOGLOBIN 31.8 pg (25-34); MEAN PLATELET VOLUME 10.7 fL (7.4-10.4); MONO % 12.7 %; MONO ABS # 0.63 K/uL (0.11-0.59); NEUT % 47.5 %; NEUT ABS # 2.36 K/uL (1.4-6.5); PLATELET COUNT 131 K/uL (130-400); RED CELL DISTRIBUTION WIDTH CV 12.9 % (11.5-14.5); RED CELL DISTRIBUTION WIDTH SD 43.9 fL (36.4-46.3); WHITE BLOOD COUNT 4.97 K/uL (4.8-10.8)
[2017-06-28 07:42] LABS: CALCIUM 9.4 mg/dl (8.5-10.1); CREATININE 0.74 mg/dl (0.60-1.40); POTASSIUM 3.7 mmol/L (3.5-5.1)
--- NOTE | 2017-06-28 08:00 | NUR ---
A: Patient resting in bed. Reports pain in his back. He is not due for his norco. He reports he is able to wait until the next dose is available. Denies SOB. Independent in the room. He his hoping to be discharged home today. Call cespedes is in reach. Will continue to monitor.
[2017-06-28] MEDS: ATORVASTATIN 20 MG TAB PO SCH (08:20)
[2017-06-28] MEDS: DOXYCYCLINE HYCLATE 100 MG CAP PO SCH (08:20)
[2017-06-28] MEDS: SALMETEROL XINAFOATE 50MCG 28 BLISTER INH INH SCH (08:20)
[2017-06-28] MEDS: OSELTAMIVIR PHOSPHATE 75 MG CAP PO SCH (08:20)
[2017-06-28] MEDS: CHOLECALCIFEROL 1000 INTER.UNIT TAB PO SCH (08:20)
[2017-06-28] MEDS: FUROSEMIDE 20 MG TAB PO SCH (08:21)
[2017-06-28] MEDS: POTASSIUM CHLORIDE 10 MEQ TABCR PO SCH (08:21)
[2017-06-28] MEDS: NICOTINE 21 MG/24 HR TDSY TD SCH (08:22)
[2017-06-28] MEDS: SODIUM CHLORIDE 0.65% NA SOLN 45 ML (OCEAN) SCH (08:22)
[2017-06-28] MEDS ORDERED: SALI0.6510 ×2 (11:50→12:05)
[2017-06-28] MEDS ORDERED: PRED10TA PO ×2 (11:50→12:05)
[2017-06-28] MEDS ORDERED: DXY100 PO ×2 (11:50→12:05)
[2017-06-28] MEDS ORDERED: TMF75 PO ×2 (11:50→12:05)
--- NOTE | 2017-06-28 11:56 | Discharge Instructions ---
Discharge Instructions Date of Service Jun 28, 2017. Admission Reason for Admission: Acute And Chronic Respiratory Failure, Pna Discharge Discharge Diagnosis / Problem: ACUTE ON CHRONIC RESP FAILURE, INFLUENZ A, COPD EX Discharge Goals Goal(s): Decrease discomfort, Improve function Activity Recommendations Activity Limitations: resume your previous activity . Instructions / Follow-Up Instructions / Follow-Up FOLLOWUP WITH FAMILY DOCTOR IN ONE WEEK Current Hospital Diet Patient's current hospital diet: AHA Diet (Heart Healthy) Discharge Diet Recommended Diet: AHA Diet (Heart Healthy) Pending Studies Studies pending at discharge: no Medical Emergencies . Who to Call and When: Medical Emergencies: If at any time you feel your situation is an emergency, please call 911 immediately. . Non-Emergent Contact Non-Emergency issues call your: Primary Care Provider . . "Provider Documentation" section prepared by Reuben Parker. . VTE Core Measure Inpt VTE Proph given/why not?: Enoxaparin (Lovenox)SQ
--- NOTE | 2017-06-28 12:39 | NUR ---
Patient discharged to home in stable condition. IV and athletic monitor removed. Medication and discharge instructions discussed with patient and . Verbalized understanding. All belongings sent with him. Patient taken to main entrance in a wheelchair by CINTHYA Rausch.
--- NOTE | 2017-06-28 18:23 | Progress Note ---
Internal Med Progress Note Date of Service: Jun 28, 2017. Provider Documentation: SUBJECTIVE: sob and cough resolved at his baseline eating fine wants to be discharged OBJECTIVE: Vital Signs-as noted below Exam: General-alert and oriented. Not in distress ENT-Normal hearing Neck-no neck masses supple Lungs-cta b/l no wheezing no crackles Heart-S1 and S2 heard regular rate and rthym, no murmurs Abdomen-Soft bowel sounds present non tender no distension Extremities-no edema no erythema Neuro-alert and awake moves extremities Lab data as noted below. ASSESSMENT & PLAN: This is a 57yo M with a PM h/o chronic lower back pain and bilateral sciatica, h /o narcotic dependence, HTN, HLD and Vit D deficiency who presented with worsening productive cough x 2 days. Acute on chronic hypoxic and hypercapnic respiratory failure: Hx of severe COPD (on 2-3L home O2, h/o alpha 1 antitrypsin deficiency), tobacco use disorder( Smokes 2.5 -3 pk cig a day) Influenza A infection /Rt lower lobe pneumonia on Tamiflu initially was on iv Zosyn currently on Doxycycline. Pulmonary on board oxygen requirements back to baseline tapering steroids cxr 06/26/17-decreased prominence of bibasilar infiltrates improving d/c on doxycycline and prednisone taper INFLUENZA A : on Tamiflu complete 5 days course Droplet precaution stable Altered mental status/CONFUSION /METABOLIC ENCEPHALOPATHY secondary to above improved CT head negative for acute change monitor Tobacco use disorder: Smokes 2.5-3 ppd Nicotine patch Smoking cessation counselling H/o chronic lower back pain w/ sciatica: On home oxycodone and Percocet prn seen by pain management appreciate input stable HTN: on lasix HLD: on statin Vit D Deficiency: home dose Vit D supplementation DVT Ppx: Lovenox SQ. discharged home Vital Signs: Date Time Temp Pulse Resp B/P (MAP) Pulse Ox O2 Delivery O2 Flow Rate FiO2 06/28/17 12:07 36.5 103 18 92 Nasal Cannula 06/28/17 11:53 36.5 103 18 150/95 (113) 92 Nasal Cannula 2.0 06/28/17 10:41 36.5 103 18 150/95 (113) 92 Nasal Cannula 2.0 06/28/17 08:00 92 Nasal Cannula 2.0 06/28/17 07:30 36.7 96 18 137/100 (112) 90 Nasal Cannula 4.0 06/28/17 07:06 93 18 88 Room Air 06/28/17 04:00 Nasal Cannula 2.0 06/28/17 03:24 36.6 88 19 140/83 (102) 95 Nasal Cannula 2.0 Humidified Oxygen 06/28/17 00:01 Nasal Cannula 2.0 06/27/17 23:07 36.6 84 20 153/98 (116) 95 Nasal Cannula 2.0 06/27/17 20:35 92 18 96 Nasal Cannula 2.0 06/27/17 20:00 Nasal Cannula 3.0 06/27/17 19:32 36.4 86 18 148/95 (112) 95 Nasal Cannula 3.0 Lab Results: Results Past 24 Hours Test 06/28/17 06:00 Range/Units White Blood Count 4.97 4.8-10.8 K/uL Red Blood Count 4.53 4.7-6.1 M/uL Hemoglobin 14.4 14.0-18.0 g/dL Hematocrit 42.4 42-52 % Mean Corpuscular Volume 93.6 80-100 fL Mean Corpuscular Hemoglobin 31.8 25-34 pg Mean Corpuscular Hemoglobin Concent 34.0 32-36 g/dl Platelet Count 131 130-400 K/uL Mean Platelet Volume 10.7 7.4-10.4 fL Neutrophils (%) (Auto) 47.5 % Lymphocytes (%) (Auto) 39.0 % Monocytes (%) (Auto) 12.7 % Eosinophils (%) (Auto) 0.4 % Basophils (%) (Auto) 0.2 % Neutrophils # (Auto) 2.36 1.4-6.5 K/uL Lymphocytes # (Auto) 1.94 1.2-3.4 K/uL Monocytes # (Auto) 0.63 0.11-0.59 K/uL Eosinophils # (Auto) 0.02 0-0.5 K/uL Basophils # (Auto) 0.01 0-0.2 K/uL RDW Standard Deviation 43.9 36.4-46.3 fL RDW Coefficient of Variation 12.9 11.5-14.5 % Immature Granulocyte % (Auto) 0.2 % Immature Granulocyte # (Auto) 0.01 0.00-0.02 K/uL Sodium Level 132 136-145 mmol/L Potassium Level 3.7 3.5-5.1 mmol/L Chloride Level 96 98-107 mmol/L Carbon Dioxide Level 30 21-32 mmol/L Anion Gap 6.0 3-11 mmol/L Blood Urea Nitrogen 11 7-18 mg/dl Creatinine 0.74 0.60-1.40 mg/dl Est Creatinine Clear Calc Drug Dose 101.8 ml/min Estimated GFR () 117.8 Estimated GFR (Non- 101.7 BUN/Creatinine Ratio 15.2 10-20 Random Glucose 94 70-99 mg/dl Calcium Level 9.4 8.5-10.1 mg/dl Magnesium Level 1.9 1.8-2.4 mg/dl
--- NOTE | 2017-06-28 18:26 | Discharge Summary ---
Discharge Summary Date of Service Jun 28, 2017. Discharge Summary Admission Date: Jun 24, 2017 at 12:22 Discharge Date: Jun 28, 2017 Discharge Disposition: Home Principal Diagnosis: acute on chronic resp failure influenza a copd ex Secondary Diagnoses/Problems: (1) ACUTE RESPIRATORY FAILURE Status: Resolved (2) BPH (benign prostatic hypertrophy) Status: Chronic (3) Chronic back pain Status: Chronic (4) COPD, severe Status: Chronic (5) Hyperlipidemia Status: Chronic (6) PERSONAL HISTORY, PNEUMONIA (RECURRENT) Status: Resolved (7) Psoriasis Status: Chronic (8) Tobacco use disorder Status: Chronic Procedures: CXR: 1. Stable emphysematous change. 2. Basilar interstitial change the bulk of which is most likely chronic. 3. Probable superimposed right basilar infiltrate. HEAD CT: No acute intracranial abnormality. CERVICAL SPINE CT:1. No acute fractures within the cervical spine. 2. Right apical lucency which favors a large bulla. CXR 06/26/17: 1. Decreased prominence of bibasilar infiltrates. 2. Emphysema. Consultations: PULMONARY Medication Reconciliation New Medications: Prednisone Tab (Prednisone) 10 Mg Tab 40 MG PO UD, #20 TAB PREDNISONE 40MG PO DAILY X 2 DAYS THEN '' 30MG '' '' 20MG '' '' 10MG PO DAILY X 2 DAYS THEN STOP. Doxycycline Hyclate (Doxycycline Hyclate) 100 Mg Cap 100 MG PO BID for 5 Days, #10 CAP Oseltamivir Phosphate (Tamiflu) 75 Mg Cap 75 MG PO BID, #2 CAP Saline ([place]) 0.65 % Spr 2 SPRAYS NA QID, #1 SPRAY Continued Medications: Atorvastatin (Lipitor) 20 Mg Tab 20 MG PO DAILY, TAB Cholecalciferol (Vitamin D) 1,000 Unit Tab 2 TABS PO DAILY Fluticasone Propionate (Flovent Hfa) 120 Puffs/40620 Mcg Aero 2 PUFF INH BID Furosemide (Lasix) 20 Mg Tab 20 MG PO DAILY Ipratropium-Albuterol (Duoneb) 3 Ml Nebu 1 TREATMENT INH Q4H PRN for SOB/Wheezing, #1 INHA 2 Refills Oxycodone Ir (Roxicodone Ir) 30 Mg Tab 30 MG PO Q3H Oxycodone/Acetaminophen 10MG/325MG (Percocet 10MG/325MG) 1 Tab Tab 1-2 TAB PO Q4 PRN for Pain, TAB Potassium Chloride (Potassium Chloride Er) 10 Meq Cap 1 CAP PO DAILY for 90 Days, #90 CAP 1 Refill Salmeterol Xinafoate (Serevent Diskus) 50 Mcg Aerp 1 PUFF INH BID Tiotropium [place] (Spiriva Handihaler) 30 Puff/540 Mcg Aerp 1 CAP INH DAILY Admission Information HPI (per Admitting provider): This is a 57yo M with a PMH of severe COPD (on 2-3L home O2, h/o alpha 1 antitrypsin deficiency), tobacco use disorder, h/o chronic lower back pain and bilateral sciatica, h/o narcotic dependence, HTN, HLD and Vit D deficiency who presents with worsening productive cough x 2 days. Patient is supposed to use home O2 continuously but states that patient is not always compliant. Over the past few days, patient has had worsening SOB while sitting and a productive cough with thick, white sputum. Also endorses subjective fever, chills, body aches and a few vomiting episodes. Patient states his SOB was much more severe last night and he increased NC O2 to 5L. States he experienced an unwitnessed mechanical fall during the night but is unsure how or when it occurred. found patient to be confused this morning so she brought him in for further evaluation. Patient denies taking more than scheduled amount of percocet or oxycodone. Continues to smoke 2.5-3 packs a day. was sick with a URI 2 weeks ago. Was previously admitted in July of this year after being found unresponsive at home after taking extra pain medication. Patient required intubation in the ICU for management of acute on chronic respiratory failure in setting of narcotic overdose and COPD. Received Narcan and was successfully extubated. Treated for COPD exacerbation. Was counseled on decreasing narcotic use in setting of admitted dependence on narcotics since age 27. Follows with a pain mgmt clinic in [facility] and Dr. Freed for pulmonology. Currently patient endorses cough, SOB, confusion, fatigue and myalgias. Denies fever, chills, lightheadedness, headache, syncope, palpitations, chest pain, abd pain, nausea, vomiting, dysuria or LE swelling. Physical Exam (per Admitting): General Appearance: + mild distress, + pertinent finding (Lethargic, receving neb treatment) Head: normocephalic, atraumatic Eyes: normal inspection, PERRL, sclerae normal ENT: normal ENT inspection, hearing grossly normal, pharynx normal Neck: supple, no JVD, trachea midline Respiratory/Chest: chest non-tender, normal breath sounds, no respiratory distress, no accessory muscle use, + crackles (R lung base), + wheezing ( expiratory wheezes throughout lungfields ) Cardiovascular: no murmur, normal peripheral pulses, + tachycardia Abdomen/GI: non tender, soft, no organomegaly Back: normal inspection Extremities/Musculoskelatal: normal inspection, no calf tenderness, no pedal edema Neurologic/Psych: no motor/sensory deficits, alert, normal mood/affect, oriented x 3, + pertinent finding (Lethargic ) Skin: normal color, warm/dry, no rash Hospital Course This is a 57yo M with a PM h/o chronic lower back pain and bilateral sciatica, h /o narcotic dependence, HTN, HLD and Vit D deficiency who presented with worsening productive cough x 2 days. Acute on chronic hypoxic and hypercapnic respiratory failure: Hx of severe COPD (on 2-3L home O2, h/o alpha 1 antitrypsin deficiency), tobacco use disorder( Smokes 2.5 -3 pk cig a day) Influenza A infection /Rt lower lobe pneumonia on Tamiflu initially was on iv Zosyn currently on Doxycycline. Pulmonary on board oxygen requirements back to baseline tapering steroids cxr 06/26/17-decreased prominence of bibasilar infiltrates improving d/c on doxycycline and prednisone taper INFLUENZA A : on Tamiflu complete 5 days course Droplet precaution stable Altered mental status/CONFUSION /METABOLIC ENCEPHALOPATHY secondary to above improved CT head negative for acute change monitor Tobacco use disorder: Smokes 2.5-3 ppd Nicotine patch Smoking cessation counselling H/o chronic lower back pain w/ sciatica: On home oxycodone and Percocet prn seen by pain management appreciate input stable HTN: on lasix HLD: on statin Vit D Deficiency: home dose Vit D supplementation DVT Ppx: Lovenox SQ. discharged home Total time spent on discharge = 35MINUTES This includes examination of the patient, discharge planning, medication reconciliation, and communication with other providers. Discharge Instructions Discharge Instructions Date of Service Jun 28, 2017. Admission Reason for Admission: Acute And Chronic Respiratory Failure, Pna Discharge Discharge Diagnosis / Problem: ACUTE ON CHRONIC RESP FAILURE, INFLUENZ A, COPD EX Discharge Goals Goal(s): Decrease discomfort, Improve function Activity Recommendations Activity Limitations: resume your previous activity . Instructions / Follow-Up Instructions / Follow-Up FOLLOWUP WITH FAMILY DOCTOR IN ONE WEEK Current Hospital Diet Patient's current hospital diet: AHA Diet (Heart Healthy) Discharge Diet Recommended Diet: AHA Diet (Heart Healthy) Pending Studies Studies pending at discharge: no Medical Emergencies . Who to Call and When: Medical Emergencies: If at any time you feel your situation is an emergency, please call 911 immediately. . Non-Emergent Contact Non-Emergency issues call your: Primary Care Provider . . "Provider Documentation" section prepared by Reuben Parker. . VTE Core Measure Inpt VTE Proph given/why not?: Enoxaparin (Lovenox)SQ
[2018-01-11] MEDS ORDERED: FLVHFA220 INH (09:33)
[2018-01-11] MEDS ORDERED: SPRIN/30 INH (09:33)
[2018-01-11] MEDS ORDERED: SRVDIN60 INH (09:33)
[2018-01-11] MEDS ORDERED: CHOL100010 PO (14:29)
[2018-01-11] MEDS ORDERED: LSX20 PO (15:41)
[2018-01-11] MEDS ORDERED: RXC30 PO (15:41)
[2018-01-11] MEDS ORDERED: SILD1TAB31 PO (15:41)
[2018-01-11] MEDS ORDERED: POTA10TA32 PO (15:41)
[2018-01-11] MEDS ORDERED: ATOR-22 PO (15:41)
[2018-01-11] MEDS ORDERED: AZIT-57 PO (15:41)
[2018-01-11] MEDS ORDERED: IPRA-64 INH (15:42)
[2018-01-11] MEDS ORDERED: FLV1 PO (15:42)
[2018-01-11] MEDS ORDERED: PRED10TA PO (15:42)
[2018-01-11] MEDS ORDERED: ALBU18002 INH (15:42)
[2018-01-11] MEDS ORDERED: FLNIN/ NAE (15:42)
[2018-01-11] MEDS ORDERED: OXGN (15:44)
[2018-01-11] MEDS ORDERED: SALI0.6510 (15:44)
[2018-01-11] MEDS ORDERED: OXYC10TA2 PO (20:17)
== END 2017-06-28 12:41 | disposition home or self-care (01) | DRG 193 ==
LOC: EDBD 08:47 → C.EDB 08:49 → C.2T 12:22 → ENRESERV 12:36 → C.2T 17:51
PROVIDERS: ADMIT Internal Medicine; ATTEND Internal Medicine
DX: J11.08 Influenza due to unidentified influenza virus with specified pneumonia (principal); J96.21 Acute and chronic respiratory failure with hypoxia; J96.22 Acute and chronic respiratory failure with hypercapnia; G93.41 Metabolic encephalopathy; J44.1 Chronic obstructive pulmonary disease with (acute) exacerbation; J44.0 Chronic obstructive pulmonary disease with (acute) lower respiratory infection; E87.1 Hypo-osmolality and hyponatremia; F11.20 Opioid dependence, uncomplicated; J69.0 Pneumonitis due to inhalation of food and vomit; M54.41 Lumbago with sciatica, right side; M54.42 Lumbago with sciatica, left side; I10 Essential (primary) hypertension; E55.9 Vitamin D deficiency, unspecified; E78.5 Hyperlipidemia, unspecified; N40.0 Benign prostatic hyperplasia without lower urinary tract symptoms; F17.210 Nicotine dependence, cigarettes, uncomplicated; Z51.81 Encounter for therapeutic drug level monitoring; Z79.899 Other long term (current) drug therapy; Z99.81 Dependence on supplemental oxygen; Z87.01 Personal history of pneumonia (recurrent); Z91.81 History of falling; Z83.49 Family history of other endocrine, nutritional and metabolic diseases; Z82.5 Family history of asthma and other chronic lower respiratory diseases

== ENCOUNTER 2017-07-05 17:01 | Emergency (ER) | payer OTHER ==
[~2017-07-05] VITALS: Ht 175.3 cm; Wt 78.7 kg
[~2017-07-05 17:01] MED LIST changes: -ALBU1AER9 INH; -CITA20TA9 PO; -CLBCR15 TD; -FLUT220A INH; +FLVHFA220 INH; -FOLI1TAB8 PO; +FURO20TA PO; -IPRA-64 INH; +IPRASOL4 INH; +OXYC-59 PO; +OXYC1TAB PO; +POTA1CAP2 PO; +PRED10TA PO; +SALI0.6510; -SALM50AE2 INH; +SPRIN/30 INH; +SRVDIN60 INH; -TIOTCAP INH; +TMF75 PO
[2017-07-05 17:10] VITALS: TEMP 36.6; Ht 175.3 cm; Wt 78.7 kg
--- NOTE | 2017-07-05 17:41 | EMERGENCY ROOM VISIT NOTE ---
History First contact with patient: 17:21 Chief Complaint: CONFUSION Stated Complaint: CONFUSION,PNEUMONIA, REF BY History of Present Illness The patient is a 57 year old male who presents to the Emergency Room via private vehicle accompanied by with complaints of "confusion, pneumonia, referred by ". Patient was recently discharged from our facility on June 28. This past the patient began with confusion, lethargy and at one point the patient was on the floor rocking back and forth not making any sense. Each day he has been progressing. Sometimes she will be disoriented and not acting right and at times he'll be okay. He normally requires 2-3 L of oxygen at home for his COPD. The patient today had a follow-up with Dr. Singh, who referred the patient here secondary to his confusion and altered state. The patient denies ingesting any illegal substances. He notes that he is now requiring up to 5 L of oxygen at home. He notes he also has more short of breath. The who accompanies him states that he has been confused since about . At this time here in the emergency department she notes he is almost back to baseline. She feels as though his shortness of breath is worse. Review of Systems A complete 10-point Review of Systems was discussed with the patient, with pertinent positives and negatives listed in the History of Present Illness. All remaining Review of Systems questions can be considered negative unless otherwise specified. Past Medical/Surgical History Medical Problems: (1) Acute and chronic respiratory failure ([id number]) (2) ACUTE RESPIRATORY FAILURE (3) BPH (benign prostatic hypertrophy) (4) Chronic back pain (5) COPD, severe (6) Hyperlipidemia (7) PERSONAL HISTORY, PNEUMONIA (RECURRENT) (8) PNA (pneumonia) (9) Psoriasis (10) Tobacco use disorder (11) Unresponsive state Surgical Problems: (1) H/O colonoscopy (2) S/P tonsillectomy and adenoidectomy Family History FH: COPD (chronic obstructive pulmonary disease) FATHER BROTHER FH: alpha 1 antitrypsin deficiency BROTHER Social History Smoking Status: Current Every Day Smoker Marital Status: Housing Status: lives with significant other Occupation Status: disabled Current/Historical Medications Scheduled Atorvastatin (Lipitor), 20 MG PO DAILY Cholecalciferol (Vitamin D), 2 TABS PO DAILY Fluticasone Propionate (Flovent Hfa), 2 PUFF INH BID Folic Acid (Folvite), 1 MG PO DAILY Furosemide (Lasix), 20 MG PO DAILY Oxycodone Ir (Roxicodone Ir), 30 MG PO Q3H Potassium Chloride (Potassium Chloride Er), 1 CAP PO DAILY Saline ([place] Nasal [place]), 2 SPRAYS NA QID Salmeterol Xinafoate (Serevent Diskus), 1 PUFF INH BID Tiotropium [place] (Spiriva Handihaler), 1 CAP INH DAILY Scheduled PRN Ipratropium-Albuterol (Duoneb), 1 TREATMENT INH Q4H PRN for SOB/Wheezing Oxycodone/Acetaminophen 10MG/325MG (Percocet 10MG/325MG), 1-2 TAB PO Q4 PRN for Pain Physical Exam Vital Signs Date Time Temp Pulse Resp B/P (MAP) Pulse Ox O2 Delivery O2 Flow Rate FiO2 07/05/17 19:38 102 07/05/17 18:59 95 20 131/80 93 Nasal Cannula 4.0 07/05/17 18:02 91 20 120/86 95 Room Air 07/05/17 17:55 94 Nasal Cannula 4.0 07/05/17 17:55 95 Nasal Cannula 4.0 07/05/17 17:43 89 16 134/84 98 Nasal Cannula 4.0 07/05/17 17:10 36.6 96 20 154/84 91 Nasal Cannula 4.0 Physical Exam VITAL SIGNS - Vital signs and nursing notes were reviewed. Stable. O2 sat of 91 on 4 L of oxygen via nasal cannula. GENERAL -57-year-old male appearing his stated age who is in no acute distress. The patient does appear to be slightly confused in the room. He has a slight grayish hue. SKIN - Without rashes. No petechial rashes. HEAD - NC/AT. EYES - PERRL with EOMI bilaterally. Sclera anicteric. EARS - No deformities of external structures noted on gross examination bilaterally. No pain elicited with palpation of the tragus bilaterally. External auditory canals without discharge or otorrhea. Tympanic membranes pearly garcia without retraction or bulging. No fluid or purulent material visualized behind the TM. Handle of malleus, umbo, cone of light, pars tensa/ flaccid all easily visualized. NOSE - Midline and without cyanosis. No epistaxis or purulent drainage noted. MOUTH/OROPHARYNX - Without perioral cyanosis. NECK - no meningismus. LUNGS - Chest wall symmetric without accessory muscle use, intercostals retractions, or central cyanosis. Normal vesicular breath sounds CTA B/L. No wheezes, rales, or rhonchi appreciated. CARDIAC - RRR with S1/S2. No murmur, rubs, or gallops appreciated. EXTREMITIES -+5/5 strength noted in UE/LE bilaterally. NEUROLOGIC - Cranial nerves II through XII grossly intact. Sensory intact to light touch throughout. Patellar reflexes +2/4. PSYCH - he is alert to self and time but believes he is at hospital for special care. He then corrects himself and says he is at [facility]. And cooperates fully with examiner. Pt is very pleasant and interacts well with examiner. Medical Decision & Procedures ER Provider Diagnostic Interpretation: SINGLE VIEW CHEST CLINICAL HISTORY: Change in mental status. FINDINGS: An AP, portable, upright chest radiograph is compared to chest x-ray dated 06/26/2017 and correlated with chest CT dated 08/12/2016. The examination is degraded by portable technique and patient rotation. The heart is enlarged and there is atherosclerotic calcification of the thoracic aorta. The pulmonary vasculature is noncongested. Advanced emphysema and chronic interstitial thickening are similar to previous. Bibasilar opacities likely represents scarring/atelectasis. There is no airspace consolidation, large pleural effusion, or pneumothorax. The skeletal structures are osteopenic. The bony thorax is grossly intact. IMPRESSION: Cardiomegaly and advanced emphysema with no acute cardiopulmonary abnormality. Electronically signed by: Gonzalez Alfred M.D. 07/05/2017 5:49 PM Dictated Date/Time: 07/05/2017 5:[address] SCAN OF THE BRAIN WITHOUT IV CONTRAST CLINICAL HISTORY: Change in mental status. COMPARISON STUDY: CT of the brain dated 06/24/2017. TECHNIQUE: Unenhanced axial CT scan of the brain is performed from the vertex to the skull base. A dose lowering technique was utilized adhering to the principles of ALARA. The examination is modestly degraded by motion artifact. CT DOSE: 623.48 mGy.cm FINDINGS: Brain parenchyma: The brain parenchyma is normal in appearance. There is no hemorrhage, mass effect, or evidence of acute territorial ischemia by CT criteria. Garcia-white matter is preserved. No extra-axial fluid collection is seen. Ventricles, sulci, cisterns: Normal in configuration. Intracranial vasculature: There is atherosclerotic calcification of the cavernous carotid and vertebral arteries. Calvarium: Unremarkable. Sinuses and mastoids: The visualized paranasal sinuses are clear. The mastoid air cells are well pneumatized. Orbits: The bony orbits are grossly intact. IMPRESSION: There is no hemorrhage, mass effect, or evidence of acute territorial ischemia by CT criteria. Electronically signed by: Gonzalez Alfred M.D. 07/05/2017 6:25 PM Dictated Date/Time: 07/05/2017 6:23 PM Laboratory Results 07/05/17 17:54 Red Blood Count 3.99, Mean Corpuscular Volume 96.2, Mean Corpuscular Hemoglobin 32.1, Mean Corpuscular Hemoglobin Concent 33.3, Mean Platelet Volume 10.2, Neutrophils (%) (Auto) 65.6, Lymphocytes (%) (Auto) 23.9, Monocytes (%) (Auto) 8.7, Eosinophils (%) (Auto) 1.4, Basophils (%) (Auto) 0.1, Neutrophils # (Auto) 6.19, Lymphocytes # (Auto) 2.25, Monocytes # (Auto) 0.82, Eosinophils # (Auto) 0.13, Basophils # (Auto) 0.01 07/05/17 17:54 Test 07/05/17 17:54 White Blood Count 9.43 K/uL (4.8-10.8) Red Blood Count 3.99 M/uL (4.7-6.1) Hemoglobin 12.8 g/dL (14.0-18.0) Hematocrit 38.4 % (42-52) Mean Corpuscular Volume 96.2 fL (80-100) Mean Corpuscular Hemoglobin 32.1 pg (25-34) Mean Corpuscular Hemoglobin Concent 33.3 g/dl (32-36) Platelet Count 188 K/uL (130-400) Mean Platelet Volume 10.2 fL (7.4-10.4) Neutrophils (%) (Auto) 65.6 % Lymphocytes (%) (Auto) 23.9 % Monocytes (%) (Auto) 8.7 % Eosinophils (%) (Auto) 1.4 % Basophils (%) (Auto) 0.1 % Neutrophils # (Auto) 6.19 K/uL (1.4-6.5) Lymphocytes # (Auto) 2.25 K/uL (1.2-3.4) Monocytes # (Auto) 0.82 K/uL (0.11-0.59) Eosinophils # (Auto) 0.13 K/uL (0-0.5) Basophils # (Auto) 0.01 K/uL (0-0.2) RDW Standard Deviation 47.1 fL (36.4-46.3) RDW Coefficient of Variation 13.4 % (11.5-14.5) Immature Granulocyte % (Auto) 0.3 % Immature Granulocyte # (Auto) 0.03 K/uL (0.00-0.02) Prothrombin Time 10.3 SECONDS (9.0-12.0) Prothromb Time International Ratio 1.0 (0.9-1.1) Activated Partial Thromboplast Time 29.0 SECONDS (21.0-31.0) Partial Thromboplastin Ratio 1.1 Venous Blood pH 7.32 (7.36-7.41) Venous Blood Partial Pressure CO2 56 mmHg (38.0-50.0) Venous Blood Partial Pressure O2 67 mmHg Venous Blood HCO3 28 mmol/L Venous Blood Oxygen Saturation 90.7 % Venous Blood Base Excess 1.4 mEq/L Carboxyhemoglobin 1.7 % THgb Anion Gap 9.0 mmol/L (3-11) Est Creatinine Clear Calc Drug Dose 92.6 ml/min Estimated GFR () 110.3 Estimated GFR (Non- 95.1 BUN/Creatinine Ratio 13.7 (10-20) Lactic Acid Level 1.7 mmol/L (0.4-2.0) Calcium Level 8.6 mg/dl (8.5-10.1) Magnesium Level 2.2 mg/dl (1.8-2.4) Total Bilirubin 0.4 mg/dl (0.2-1) Aspartate Amino Transf (AST/SGOT) 19 U/L (15-37) Alanine Aminotransferase (ALT/SGPT) 20 U/L (12-78) Alkaline Phosphatase 104 U/L (45-117) Ammonia 26.0 umol/L (11-32) Total Creatine Kinase 143 U/L (39-308) Creatine Kinase MB 3.9 ng/ml (0.5-3.6) Creatine Kinase MB Ratio 2.7 (0-3.0) Troponin I < 0.015 ng/ml (0-0.045) Total Protein 6.2 gm/dl (6.4-8.2) Albumin 3.3 gm/dl (3.4-5.0) Globulin 2.9 gm/dl (2.5-4.0) Albumin/Globulin Ratio 1.2 (0.9-2) Thyroid Stimulating Hormone (TSH) 1.040 uIu/ml (0.300-4.500) Chemistry Specimen Hemolysis Salicylates Level 2.8 mg/dl (2.8-20) Acetaminophen Level 13 ug/ml (10-30) Ethyl Alcohol mg/dL < 3.0 mg/dl (0-3) Lyme Disease IgG Antibody NEG (NEG) Lyme Disease IgM Antibody NEG (NEG) Medications Administered Medications (Trade) Dose Ordered Sig/Margarita Route Start Time Stop Time Status Last Admin Dose Admin Naloxone HCl (Narcan Inj) 0.4 mg NOW STAT IV 07/05/17 19:40 07/05/17 19:46 DC 07/05/17 20:02 0.4 MG Medical Decision Patient was seen and evaluated as above. On exam he does not appear to be acting appropriate. He is rocking back and forth on the bed as he is sitting, he is playing with the EKG leads as well as the remote. He was asked where he is and he thought he was at [facility] initially. He then corrected himself and [facility]. The is at bedside feels as though he is not himself and has been this way since . He has been taking pain meds that he was previously prescribed as well as prednisone. He was sent here today by the family doctor. A large workup was performed here today secondary to his presentation. Chest x-ray reveals essentially no acute process. EKG was unobtainable secondary to the patient constantly moving. CBC reveals no concerning leukocytosis. Anemia with hemoglobin of 12.8. ABG with pH 7.32. CO2 56. Coags normal. Patient metabolic panel reveals no evidence of kidney or liver failure. CK-MB is elevated at 3.9 with an excellent ratio. Troponin negative. Ammonia normal. Lactic acid normal. Blood cultures pending. Salicylate, acetaminophen and alcohol normal. Lyme screen negative. CT of the head negative for acute process. The patient does not present like an overdose , therefore I felt that altered mental status further workup would be appropriate in the inpatient setting. Narcan was ordered by the hospitalist. I was then called to bedside as the patient became agitated, and the RN notes immediate change in the patient's status. The feels as though he is looking much better. I believe that this is a poly-medication issue. The patient requested to go home, and the notes that she feels comfortable taking him home as he does have a follow-up tomorrow with Dr. Freed. The patient was trying to prepare himself for discharge and attempted to remove his left hand intravenous access. This caused brief bleeding. Region was pressure dressed. He at this time will be discharged per his request with his . At this time I suspect that his change in behavior could be from the steroid that he received, in addition to the pain medication that he was receiving. He recently finished prednisone. At this time he was educated upon management, educated upon worrisome symptoms in which to return, had questions about discharge, and was discharged home in good condition. In the evaluation and treatment of this patient, the following differential diagnoses were considered: Concussion, Contrecoup Injury, Brain Tumor, Depression, Encephalitis, Hypothyroidism, Meningitis, CVA, TIA, Migraine, Cluster Headache, Intracranial Abnormality, Intracranial Hemorrhage, Subdural Hematoma, Subarachnoid Hemorrhage, Hydrocephalus. Impression Primary Impression: altered mental status secondary to medication Additional Impression: Anemia Departure Information Dispostion Home / Self-Care Condition GOOD Referrals Howard Myers M.D. (PCP) Patient Instructions My [facility] Additional Instructions You were seen in the emergency Department for concern over confusion. I suspect that at this time the prednisone and the opioid pain medications are contributing to this. Fortunately, you have finished prednisone. I do recommend continuing to use her oxygen is prescribed and started with only very small amounts of pain medication. Please keep your follow-up appointments. Please call your family doctor to schedule follow-up tomorrow. Please return with any new/concerning symptoms. I do recommend following up with your family doctor for the incidental results of the x-ray and CT of the head. Chest Xray FINDINGS: An AP, portable, upright chest radiograph is compared to chest x-ray dated 06/26/2017 and correlated with chest CT dated 08/12/2016. The examination is degraded by portable technique and patient rotation. The heart is enlarged and there is atherosclerotic calcification of the thoracic aorta. The pulmonary vasculature is noncongested. Advanced emphysema and chronic interstitial thickening are similar to previous. Bibasilar opacities likely represents scarring/atelectasis. There is no airspace consolidation, large pleural effusion, or pneumothorax. The skeletal structures are osteopenic. The bony thorax is grossly intact. IMPRESSION: Cardiomegaly and advanced emphysema with no acute cardiopulmonary abnormality. CT SCAN OF THE BRAIN WITHOUT IV CONTRAST COMPARISON STUDY: CT of the brain dated 06/24/2017. TECHNIQUE: Unenhanced axial CT scan of the brain is performed from the vertex to the skull base. A dose lowering technique was utilized adhering to the principles of ALARA. The examination is modestly degraded by motion artifact. CT DOSE: 623.48 mGy.cm FINDINGS: Brain parenchyma: The brain parenchyma is normal in appearance. There is no hemorrhage, mass effect, or evidence of acute territorial ischemia by CT criteria. Garcia-white matter is preserved. No extra-axial fluid collection is seen. Ventricles, sulci, cisterns: Normal in configuration. Intracranial vasculature: There is atherosclerotic calcification of the cavernous carotid and vertebral arteries. Calvarium: Unremarkable. Sinuses and mastoids: The visualized paranasal sinuses are clear. The mastoid air cells are well pneumatized. Orbits: The bony orbits are grossly intact. IMPRESSION: There is no hemorrhage, mass effect, or evidence of acute territorial ischemia by CT criteria. Problem Qualifiers
--- NOTE | 2017-07-05 17:50 | DIAGNOSTIC IMAGING REPORT ---
SINGLE VIEW CHEST CLINICAL HISTORY: Change in mental status. FINDINGS: An AP, portable, upright chest radiograph is compared to chest x-ray dated 06/26/2017 and correlated with chest CT dated 08/12/2016. The examination is degraded by portable technique and patient rotation. The heart is enlarged and there is atherosclerotic calcification of the thoracic aorta. The pulmonary vasculature is noncongested. Advanced emphysema and chronic interstitial thickening are similar to previous. Bibasilar opacities likely represents scarring/atelectasis. There is no airspace consolidation, large pleural effusion, or pneumothorax. The skeletal structures are osteopenic. The bony thorax is grossly intact. IMPRESSION: Cardiomegaly and advanced emphysema with no acute cardiopulmonary abnormality. Electronically signed by: Gonzalez Alfred M.D. 07/05/2017 5:49 PM Dictated Date/Time: 07/05/2017 5:45 PM
[2017-07-05 17:55] VITALS: O2SAT 95
--- NOTE | 2017-07-05 18:26 | DIAGNOSTIC IMAGING REPORT ---
CT SCAN OF THE BRAIN WITHOUT IV CONTRAST CLINICAL HISTORY: Change in mental status. COMPARISON STUDY: CT of the brain dated 06/24/2017. TECHNIQUE: Unenhanced axial CT scan of the brain is performed from the vertex to the skull base. A dose lowering technique was utilized adhering to the principles of ALARA. The examination is modestly degraded by motion artifact. CT DOSE: 623.48 mGy.cm FINDINGS: Brain parenchyma: The brain parenchyma is normal in appearance. There is no hemorrhage, mass effect, or evidence of acute territorial ischemia by CT criteria. Garcia-white matter is preserved. No extra-axial fluid collection is seen. Ventricles, sulci, cisterns: Normal in configuration. Intracranial vasculature: There is atherosclerotic calcification of the cavernous carotid and vertebral arteries. Calvarium: Unremarkable. Sinuses and mastoids: The visualized paranasal sinuses are clear. The mastoid air cells are well pneumatized. Orbits: The bony orbits are grossly intact. IMPRESSION: There is no hemorrhage, mass effect, or evidence of acute territorial ischemia by CT criteria. Electronically signed by: Gonzalez Alfred M.D. 07/05/2017 6:25 PM Dictated Date/Time: 07/05/2017 6:23 PM
[2017-07-05 18:30] LABS: BASO % 0.1 %; BASO ABS # 0.01 K/uL (0-0.2); EOS % 1.4 %; EOS ABS # 0.13 K/uL (0-0.5); HEMATOCRIT 38.4 % (42-52); HEMOGLOBIN 12.8 g/dL (14.0-18.0); IG# 0.03 K/uL (0.00-0.02); LYMPH % 23.9 %; LYMPH ABS # 2.25 K/uL (1.2-3.4); MEAN CELL VOLUME 96.2 fL (80-100); MEAN CORPUSCULAR HEMOGLOBIN 32.1 pg (25-34); MEAN CORPUSCULAR HGB CONC 33.3 g/dl (32-36); MEAN PLATELET VOLUME 10.2 fL (7.4-10.4); MONO % 8.7 %; MONO ABS # 0.82 K/uL (0.11-0.59); NEUT % 65.6 %; NEUT ABS # 6.19 K/uL (1.4-6.5); PLATELET COUNT 188 K/uL (130-400); RED CELL DISTRIBUTION WIDTH CV 13.4 % (11.5-14.5); RED CELL DISTRIBUTION WIDTH SD 47.1 fL (36.4-46.3); WHITE BLOOD COUNT 9.43 K/uL (4.8-10.8)
[2017-07-05 18:40] LABS: ALBUMIN 3.3 gm/dl (3.4-5.0); ALT/SGPT 20 U/L (12-78); BLOOD UREA NITROGEN 12 mg/dl (7-18); CALCIUM 8.6 mg/dl (8.5-10.1); CARBON DIOXIDE 26 mmol/L (21-32); CREATININE 0.87 mg/dl (0.60-1.40); GLUCOSE 163 mg/dl (70-99); POTASSIUM 3.9 mmol/L (3.5-5.1); SODIUM 134 mmol/L (136-145)
[2017-07-05 18:51] LABS: ALKALINE PHOSPHATASE 104 U/L (45-117); AST/SGOT 19 U/L (15-37); CKMB 3.9 ng/ml (0.5-3.6); TOTAL PROTEIN 6.2 gm/dl (6.4-8.2)
[2017-07-05] MEDS ORDERED: FOLI1TAB8 PO (19:14)
[2017-07-05] MEDS ORDERED: NALOXONE HCL 0.4 MG/1 ML VIAL/CARP IV STA (19:40)
--- NOTE | 2017-07-05 20:30 | EMERGENCY ROOM VISIT NOTE ---
ED Visit Note First contact with patient: 17:21 I did evaluate and examine this patient myself. I did guide management for the patient. I agree with the APC's assessment as discussed. Please see the APC's dictation for further details. I did independently review the x-rays, CT scan and blood work. No acute abnormalities were found on his workup to explain his change in behavior. He seems rather lucid at times but then is very fidgety and somewhat bizarre. He denies any headache. He states he has neck pain but this is a chronic problem for him. He has had no fevers. I did recommend hospitalization for further evaluation. The case was discussed with the hospitalist.
[2017-07-05 20:40] VITALS: BP 139/75; PULSE 98; O2SAT 94
== END 2017-07-05 20:43 | disposition home or self-care (01) ==
LOC: C.EDB 17:03 → C.EDA 20:43
DX: R41.82 Altered mental status, unspecified (principal); T38.0X5A Adverse effect of glucocorticoids and synthetic analogues, initial encounter; D64.9 Anemia, unspecified; J44.9 Chronic obstructive pulmonary disease, unspecified; N40.0 Benign prostatic hyperplasia without lower urinary tract symptoms; E78.5 Hyperlipidemia, unspecified; Z87.01 Personal history of pneumonia (recurrent); L40.9 Psoriasis, unspecified; Z83.6 Family history of other diseases of the respiratory system; F17.210 Nicotine dependence, cigarettes, uncomplicated; Z79.899 Other long term (current) drug therapy

== ENCOUNTER → 2017-07-29 | Outpatient (CLI) | payer OTHER ==
[~2017-07-29] MED LIST changes: -DXY100 PO; +FOLI1TAB8 PO; -PRED10TA PO; -TMF75 PO
--- NOTE | 2017-07-29 13:41 | DIAGNOSTIC IMAGING REPORT ---
CHEST 2 VIEWS ROUTINE CLINICAL HISTORY: J18.9 [id number] COMPARISON STUDY: 07/05/2017 FINDINGS: The cardiac and mediastinal contours remain stable. There is severe right upper lobe emphysema. There is no acute parenchymal consolidation. There is stable interstitial thickening with a basilar predominance.[ No pleural effusions are visualized IMPRESSION: Emphysema. Stable basilar interstitial thickening. No acute findings. Electronically signed by: Luisito King M.D. 07/29/2017 1:39 PM Dictated Date/Time: 07/29/2017 1:38 PM
== END | disposition home or self-care (01) ==
LOC: C.RAD1850 13:29
PROVIDERS: ATTEND Physician Assistant Medical
DX: J18.9 Pneumonia, unspecified organism (principal)

== ENCOUNTER → 2017-08-27 | Outpatient (CLI) | payer OTHER ==
--- NOTE | 2017-08-27 13:49 | DIAGNOSTIC IMAGING REPORT ---
CHEST 2 VIEWS ROUTINE CLINICAL HISTORY: R06.02 SHORTNESS OF BREATH COMPARISON STUDY: July 29, 2017 FINDINGS: There is severe pulmonary emphysema. The heart is normal in size. There is interstitial thickening unchanged the prior study. There is no acute parenchymal consolidation. There are no pleural effusions.[ IMPRESSION: Severe emphysema and stable interstitial thickening. No acute findings. Electronically signed by: Luisito King M.D. 08/27/2017 1:48 PM Dictated Date/Time: 08/27/2017 1:47 PM
== END | disposition home or self-care (01) ==
LOC: C.RAD1850 13:37
PROVIDERS: ATTEND Physician Assistant Medical
DX: R06.02 Shortness of breath (principal); J43.9 Emphysema, unspecified

== ENCOUNTER 2018-10-17 16:13 | Inpatient (IN) ==
[2018-10-17] MEDS ORDERED: methylPREDNISolone 125 MG/2 ML VIAL IV STA (16:33)
[2018-10-17] MEDS ORDERED: ALBUT/IPRATROP 3MG/0.5MG NEB 3 ML VIAL INH STA (16:33)
--- NOTE | 2018-10-17 17:14 | XRay Report ---
XR chest 1V portable CLINICAL HISTORY: 58 years-old Male presenting with Dyspnea. TECHNIQUE: Portable upright AP view of the chest was obtained. COMPARISON: 06/02/2018. FINDINGS: Atherosclerosis of the aortic arch. Cardiac silhouette top normal in size. Diffusely heterogeneous edward ng parenchyma with radiolucency of the right upper lung as on prior exam. Pulmonary vascular prominen ce and diffuse added density of the left lung and right lung base. This appearance has increased from prior exam. Possible underlying lung cysts or emphysematous change in the left upper lobe. Bronchial wall thickening may also be present. No large pleural effusion or gross evidence of pneumothorax all owing for the degree of radiolucency in the right upper lung. Osseous structures normal. IMPRESSION: 1. Findings suggest superimposed diffuse infiltrate on a background of chronic lung disease, likely emphysema. This could represent multifocal pneumonia or edema superimposed on emphysema. Electronically signed by: Duane Cuevas M.D. 10/17/2018 5:13 PM
[2018-10-17 17:16] LABS: Hematocrit (blood only) 40.9 % (42-52); Hemoglobin 12.9 g/dL (14.0-18.0); Immature Granulocytes # (auto) 0.03 K/uL (0.00-0.02); Immature Granulocytes % (auto) 0.7 %; Lymphocytes # (auto) 0.43 K/uL (1.2-3.4); Lymphocytes % (auto) 9.4 %; Mean Corpuscular Hgb Conc 31.5 g/dL (32-36); Mean Corpuscular Volume 97.6 fL (80-100); Mean Platelet Volume 9.7 fL (7.4-10.4); Monocytes # (auto) 0.21 K/uL (0.11-0.59); Monocytes % (auto) 4.6 %; Neutrophils # (auto) 3.91 K/uL (1.4-6.5); Neutrophils % (auto) 85.3 %; Platelet Count 142 K/uL (130-400); RDW Coefficient of Variation 14.1 % (11.5-14.5); RDW Standard Deviation 50.1 fL (36.4-46.3); Red Blood Count 4.19 M/uL (4.7-6.1); White Blood Count 4.58 K/uL (4.8-10.8)
[2018-10-17 17:28] LABS: INR 1.2 (0.9-1.1); Prothrombin Time 11.7 Seconds (9.0-12.0)
[2018-10-17 17:34] LABS: Albumin Level 3.4 gm/dl (3.4-5.0); BUN Creatinine Ratio 15.9 (10-20); Calcium 9.9 mg/dl (8.5-10.1); Creatinine Clr Calc Pharmacy 108.2 ml/min; Est GFR (African American) 114.5; Est GFR (Non-African American) 98.8; Potassium 4.1 mmol/L (3.5-5.1)
[2018-10-17 17:37] LABS: Albumin Globulin Ratio 1.1 (0.9-2); Bilirubin,Total 0.3 mg/dl (0.2-1); Globulin 3.2 gm/dl (2.5-4.0); Total Protein 6.6 gm/dl (6.4-8.2)
[2018-10-17] MEDS ORDERED: PIPERACILL/TAZOBAC CONSULT ACTIVE PRN ×2 (17:50→22:20)
[2018-10-17] MEDS ORDERED: PIPERACILLIN/TAZOBACTAM 4.5 GM/120 ML BAG IV ONE (17:50)
[2018-10-17] MEDS ORDERED: ALBUT/IPRATROP 3MG/0.5MG NEB 3 ML VIAL NEB ONE (17:58)
--- NOTE | 2018-10-17 20:17 | History & Physical Report ---
Date of Service October 17, 2018 Assessment & Plan (1) Acute on chronic respiratory failure with hypoxia and hypercapnia: (2) Respiratory acidosis: (3) COPD exacerbation: (4) PNA (pneumonia): This is a 58-year-old male who has a significant past medical history of severe COPD O2 dependent 2 L, opioid dependent, chronic back pain, HLD, tobacco abuse who presents to [facility] secondary to shortness of breath and cough x1 week. In ED patient was noted to be hypoxic requiring increased oxygen support at 4 to 5 L. Negative for influenza WBC 4.8, hemoglobin hematocrit 12.9 and 40.9, sodium 132, CO2 35, lactate 1.9 Chest x-ray concerning for COPD with superimposed multifocal pneumonia versus edema ABG revealed respiratory acidosis pH 7.31, PCO2 76, PO2 48, HCO3 38 Patient does meet SIRS criteria, but unclear if sepsis present. Patient does have tachycardia and tachypnea but overall could be secondary to COPD exacerbation/pneumonia Lactic acid 1.9, will obtain procalcitonin admit to ICU for respiratory support Bipap, titrate accordingly consult pulmonary medicine Consult critical care medicine Broad-spectrum IV antibiotics including vancomycin, Zosyn, doxycycline IV methylprednisolone 40 mg IV every 8 hours Give Lasix IV 20 mg x 1 for questionable pulmonary edema, monitor response Obtain echocardiogram in a.m. Repeat chest x-ray in a.m. Pulmonary toilet with nebulizers, incentive spirometry (5) Chronic back pain: continue narcotics as prescribed with strict hold parameters Home regimen consist of oxycodone 30 mg 1 tablet every 3 hours as needed, Percocet 12406 1 tab every 4 hours as needed pain Patient states he usually takes both narcotics together for pain relief (6) Chronic hyponatremia: Na 132, appears chronic in nature ?if secondary to severe copd monitor bmp (7) Hyperlipidemia: continue lipitor (8) Tobacco use disorder: nicotine patch ordered smoking cessation encouraged (9) DVT prophylaxis: Lovenox Disposition: to be determined Follow up: PCP Dr. Myers upon discharge Patient was seen and examined in collaboration with Dr. Sher, please see addendum Starting 10/18/18 patient will be under the care of Dr. Campuzano History of Present Illness Chief Complaint: SOB and cough x 1 week. Primary Care Provider: Dr. Howard Myers This is a 58-year-old male who has a significant past medical history of severe COPD O2 dependent 2 L, opioid dependent, chronic back pain, HLD, tobacco abuse who presents to [facility] secondary to shortness of breath and cough x1 week. Patient's is at bedside. ROS slightly unreliable given patient's current cognitive state. states for the past week patient has had a productive cough, brown sputum. He is also had increasing shortness of breath requiring increasing O2 requirements. He has been fluctuating between 2 and 4 L. Symptoms worsened over the past 2 days. She called patient's rigging loft mechanic who prescribed doxycycline 100 mg twice daily as well as prednisone emergency pack. He has taken 2 days of doxycycline and prednisone. Patient denies any recent fever, chills, sweats, lightheadedness, dizziness, jose chest pain, hemoptysis, nausea, vomiting, diarrhea, change in bowel or urinary habits. Per appetite has been fluctuating. No known weight loss or gain. He has not been using prescribed inhalers secondary to inability to afford. He has been using nebulizer treatments at home with minimal relief. Patient does have chronic pain syndrome secondary to back pain. He takes high- dose narcotics including oxycodone 30 mg IR every 3 hours as needed along with Percocet 10-325 every 4 hours as needed pain. His last dose was approximately noon. states he has not missed dosages and does not feel he took extra medication. Denies alcohol use, quit 10 years ago. Allergies Allergy/AdvReac Type Severity Reaction Status Date / Time No Known Allergies Allergy Verified 10/17/18 20:14 Home Medications Home Medications Medication Instructions Recorded Confirmed Type Oxygen Home 10/17/18 10/17/18 History atorvastatin 20 mg PO HS 10/17/18 10/17/18 History doxycycline hyclate 100 mg PO BID 10/17/18 10/17/18 History fluticasone propionate 1 spray INTRANASAL DAILY 10/17/18 10/17/18 History folic acid 1 mg PO DAILY 10/17/18 10/17/18 History omeprazole 20 mg PO QAM 10/17/18 10/17/18 History oxycodone 30 - 60 mg PO Q4 PRN 10/17/18 10/17/18 History oxycodone-acetaminophen 1 - 2 tabs PO Q4H PRN 10/17/18 10/17/18 History prednisone 20 mg PO UD 10/17/18 10/17/18 History salmeterol [Serevent Diskus] 1 inh INHALATION BID 10/17/18 10/17/18 History Past Med/Surg History Medical History Chronic hyponatremia (Chronic) COPD, severe (Chronic) Tobacco use disorder (Chronic) Hyperlipidemia (Chronic) Chronic back pain (Chronic) Psoriasis (Chronic) BPH (benign prostatic hypertrophy) (Chronic) Acute and chronic respiratory failure ([id number]) (Acute) PNA (pneumonia) (Acute) Unresponsive state (Resolved) Surgical History S/P tonsillectomy and adenoidectomy (Chronic) H/O colonoscopy (Chronic) "07/01/10- hyperplastic" Family History Father COPD (chronic obstructive pulmonary disease) Mother Alive and well Brother Alive and well Brother Alive and well Social History Preferred Language: Maldivian Communication Ability: Impaired Communication Ability Comment: Cognitive status marital status: Current Living Situation: Alone current occupational status: disabled Feels Safe at Home: Yes Smoking Status: Unknown if ever smoked Review of Systems Review of Systems: ROS unreliable secondary to fluctuating mental status Physical Exam Physical Exam: Gen: WD/WN, M, agitated, moving frequently in bed, lying in hunched over position ("due to back pain," no jose resp distress, not answering questions appropriately Head: Normocephalic, Atraumatic Eyes: Sclera normal, mild b/l conjunctival injection, Pupils pinpoint but ERRLA, EOMI ENT: Gross hearing intact, normal pharynx, mucous membranes moist Neck: supple, no adenopathy, No JVD, no bruit, Resp: Decreased breath sounds throughout without wheeze, rales, rhonchi. increased insp/exp effort, no accessory muscle use CV: tachycardic rate, regular rhythm, no murmur, rub, gallop, or ectopy Abd: +BS x 4, soft, nontender, nondistended Musculoskeletal: moves extremities active rom x 4, strength intact, good real estate analyst strength Extremities: No edema bilaterally Skin: warm, moist, no rash but dusky in nature, negative turgor, cap refill < 2sec Neuro: Alert and oriented x 3 but fluctuating mental status, speech normal but slowed, cran nerve 2-12 intact grossly : deferred Results & Data Vital Signs (Past 12 Hours) Vital Signs Temp Pulse Pulse Resp BP BP Pulse Ox 10/17/18 19:16 101 H 24 113/76 88 L 10/17/18 18:11 112 H 30 H 84 L 10/17/18 17:30 91 10/17/18 17:29 91 10/17/18 17:18 91 10/17/18 17:10 106 H 20 126/79 89 L 10/17/18 17:08 110 H 16 92 10/17/18 17:00 113 H 15 82 L 10/17/18 16:33 106 H 12 90 10/17/18 16:17 36.5 C 104 H 22 117/67 82 L Laboratory Results Short CBC 10/17/18 10/17/18 Range/Units 17:05 18:10 WBC 4.58 L (4.8-10.8) K/uL Hgb 12.9 L (14.0-18.0) g/dL Hct 40.9 L (42-52) % Plt Count 142 (130-400) K/uL ABG pH Cancelled ABG O2 Saturation Cancelled BMP 10/17/18 17:05 Sodium 132 L Potassium 4.1 Chloride 91 L Carbon Dioxide 35 H BUN 13 Creatinine 0.78 Glucose 130 H Calcium 9.9 Liver Function 10/17/18 Range/Units 17:05 Total Bilirubin 0.3 (0.2-1) mg/dl AST 21 (15-37) U/L ALT 20 (12-78) U/L Alkaline Phosphatase 126 H (45-117) U/L Albumin 3.4 (3.4-5.0) gm/dl Diagnostic Findings CXR: IMPRESSION: 1. Findings suggest superimposed diffuse infiltrate on a background of chronic lung disease, likely emphysema. This could represent multifocal pneumonia or edema superimposed on emphysema. Medications Administered Discontinued Medications Albuterol (Duoneb) 3 ml INH NOW STA Stop: 10/17/18 16:34 Last Admin: 10/17/18 17:35 Dose: 3 ml Documented by: [id number] Albuterol (Duoneb) 9 ml NEB ONE ONE Stop: 04/22/19 17:59 Last Admin: 10/17/18 18:10 Dose: 9 ml Documented by: [id number] Piperacillin Sod/Tazobactam Sod (Zosyn) 4.5 gm in 120 mls @ 240 mls/hr IV NOW ONE Stop: 10/17/18 18:19 Last Infusion: 10/17/18 18:34 Dose: 0 mls/hr Documented by: [id number] Admin: 10/17/18 17:58 Dose: 240 mls/hr Documented by: [id number] Methylprednisolone (Solumedrol) 60 mg IV NOW STA Stop: 10/17/18 16:34 Last Admin: 10/17/18 17:58 Dose: 60 mg Documented by: [id number] ECG Rate (beats per minute): 111 Rhythm: sinus tachycardia Code Status & VTE Plan Code Status Full Code VTE Prophylaxis Plan VTE Prophylaxis will be ordered: Yes Supervising Physician Co-Signing Physician Notes HISTORY: Record reviewed. Patient interviewed and examined. Care coordinated with Mariaelena Matta PA-C. Please refer to her documentation for patient's history. Briefly, 58 YO male with severe COPD, O2 dependent. Presented to ED with cough, worsening dyspnea, hypoxia, confusion. EXAM: General- appears to be acutely ill, but no distress Lungs- scattered rhonchi, diffuse wheezing Cardiovascular- RRR, distant heart sounds, no murmur or gallop appreciated; no JVD; no pretibial edema Abdomen- + bowel sounds, soft, nontender Extremities- no cyanosis; no calf tenderness Neuro- somnolent, arousable, essentially oriented x 3 but confused, tangential, easily distracted Skin- warm & dry DATA: WBC 4580. Lactate 1.9. Procalcitonin 12.27. Troponin 0.03. Pro-BNP 5000. ABG 5 L NC: pO2 48, pCO2 76, HCO3 38, pH 7.31. Other lab studies as noted. Chest x-ray reviewed and demonstrated emphysematous changes, bilateral infiltrates and / or pulmonary edema. ASSESSMENT AND PLAN: Acute on chronic hypoxic and hypercapnic respiratory failure. Exacerbation COPD. Possible pneumonia with sepsis. Possible CHF. Critically ill. Admit to ICU- case discussed with Critical Care Medicine. BiPAP for ventilatory support. IV vancomycin, piperacillin / tazobactam, doxycycline. IV steroids / nebs. Check echo. Please refer to IRINEO Matta's documentation for discussion of other issues.
[2018-10-17 20:31] LABS: HCO3 ABG 38 mmol/L (19-24); Oxygen Saturation ABG 81.7 % (90-95); PCO2 ABG 76 mmHg (35-46); PO2 ABG 48 mm/Hg (80-95); pH ABG 7.31 (7.35-7.45)
[2018-10-17 20:32] LABS: Allen Test Pos (Pos)
--- NOTE | 2018-10-17 21:51 | Critical Care Consultation ---
Date of Consultation October 17, 2018 Assessment & Plan (1) Admitted to intensive care unit: Reason Critically Ill: 58-year-old male with acute on chronic hypoxic respiratory failure with hypercapnia in the setting of COPD exacerbation. NEURO - * CAM ICU: NEGATIVE * Chronic Pain of the Cervical and Lumbar Spines: * High dose narcotic pain medications at home. * Suspicious that his dependence on narcotics my worsen his respiratory drive and worsening retention. * Judicious use of narcotics at this time. * Periods of confusion/agitation: * Likely 2/2 CO2 narcosis. CARDIAC/VASCULAR - * No known h/o cardiac disease. * Monitor on telemetry. RESPIRATORY - * Acute on Chronic Hypoxic Respiratory Failure w/ Hypercapnia: * CXR in ED shows large areas of space in the RUL. * CT w/o contrasts confirms severe COPD. * Agree with aggressive pulmonary toilet. * Patient reluctant for BiPAP. Will try Vapotherm initially. * Will progress to BiPAP if needed. * Would be hesitant to intubate patient w/ severe lung pathology. * Steroids, Nebs in place. * Currently on Abx w/ c/o ??PNA versus pulm edema on CXR. - these can likely be deescalated as there does not appear to be significant infiltrative changes on CXR/CT. GI/NUTRITION - * Clears - consider NPO if BiPAP required. * Prophylaxis: Protonix RENAL/LYTES - * No significant electrolyte derangements. * Chronic nyponatremia. - * Will add Branham w/ addition of Lasix dosing. * Branham in place - Strict I&Os. ENDO - * No h/o DM or Thyroid Dz * BSGs per unit protocol. ISS --> gtt per unit policy. HEME - * Stable H&H ID - * Presented w/ Recent PNA Dx currently on Doxy. * Currently on Vanc, Zosyn, Doxy - continue for now. Plans for early de escalation. * ProCal was elevated. * US of gallbladder pending. LINES/IV ACCESS - * PIVs x3 * LEFT Radial A-Line * Branham DVT PROPHYLAXIS - * Lovenox * SCDs I have personally spent 45 minutes of critical care time in the direct management of this patient. This is a life/limb threatening event. This includes time spent evaluating patient, direct bedside care, chart review, placing orders, interpretation of diagnostic studies, discussion with consultants, patient, and family members, as well as other required patient management activities. This time is exclusive of all separately billable procedures, and teaching time and separate from and in addition to any other critical care service time. Thank you for allowing us to participate in the care of this patient. Please refer to my attending physician's documentation for any further recommendations. The patient was seen, examined independently, agree with assessment and plan of my colleague Low Prado PA-C. This is 58-year-old man with history of COPD, gold level 4, home O2 dependent, active smoker, with performance status level 3-4, presented to the hospital with increasing shortness of breath, was confused due to acute on chronic hypercapnic respiratory failure, placed on the BiPAP but refused it, started on IV Solu- Medrol as well as bronchodilators, the patient blood pressure was also on the high side, he does have significant back pain where he was on megadoses of narcotics including oxycodone as needed and scheduled. The patient physical exam revealed vital signs are stable, S1-S2 regular rate and rhythm, lungs are distant breath sounds, hyperinflated lungs, abdomen is benign, no edema, neurologically he is intact, he does have injected conjunctiva, oral mucosa appears normal. Poor dental hygiene. His chest x-ray and CAT scan which were reviewed by me showed vanishing lungs with significant bullous disease and COPD. Assessment and plan: 1. Acute on chronic hypercapnic and hypoxic respiratory failure. 2. COPD with exacerbation. Gold level 4, grade C. 3. Cor pulmonale. 4. Chronic back pain with excessive amount of narcotics resulted in respiratory drive suppression. 5. Anxiety. Plan: 1. Change Solu-Medrol to 60 mg IV every 6 hours. 2. Bronchodilators. 3. Use of BiPAP only as needed, the patient has acute on chronic hypercapnic respiratory failure but very mild and well compensated. 4. Minimize narcotics, I have eliminated oxycodone scheduled and I kept him only on Percocet for pain. Watch for withdrawal signs. 5. Smoking cessation counseling. 6. Blood pressure management. 7. Discontinue A-line. The discrepancy between MBP and a line is due to peripheral vascular disease. Discussed with the and with the patient in details, discussed with the staff, critical care time spent with the patient was 45 minutes. (2) Acute on chronic respiratory failure with hypoxia and hypercapnia: (3) COPD exacerbation: (4) Respiratory failure: (5) Chronic hyponatremia: (6) Pneumonia: (7) Chronic narcotic use: History of Present Illness History of Present Illness Patient is a 58-year-old male with a significant past medical history of COPD who is home oxygen dependent on 2.5 L at all times. Over the last 2 weeks, the patient has had increasing upper respiratory symptoms including productive cough as well as increasing shortness of breath with increased O2 requirement. They did contact the patient's policeman who put him on a course of steroids as well as doxycycline. Despite that, the patient had increasing work of breathing which did eventually prompted visit to the emergency department. In the emergency department, the patient was found to be hypoxic. He was placed on a 5 L oxygen mask. He received an hour-long neb as well as IV steroids. Patient did have concerns for change in mental status with increased hypoxia. They attempted to place him on BiPAP, however he was reluctant. On evaluation in the emergency department, the patient is awake and alert. He is pleasantly confused, but easily redirected. He is with coarse lung sounds. Oxygen saturations are in the low 90s to high 80s. He admits to worsening shortness of breath and cough. He denies any complaints of chest pain or abdominal pain. He complains of chronic pain to the neck and lower back for which he takes chronic narcotic medications. Patient denies any headaches, dizziness, lightheadedness, palpitations, hemoptysis, nausea, vomiting, or diarrheal illness. He has a history of chronic tobacco use. He reports he does not drink alcohol. Allergies Allergy/AdvReac Type Severity Reaction Status Date / Time No Known Allergies Allergy Verified 10/17/18 20:14 Home Medications Home Medications Medication Instructions Recorded Confirmed Type Oxygen Home 10/17/18 10/17/18 History atorvastatin 20 mg PO HS 10/17/18 10/17/18 History doxycycline hyclate 100 mg PO BID 10/17/18 10/17/18 History fluticasone propionate 1 spray INTRANASAL DAILY 10/17/18 10/17/18 History folic acid 1 mg PO DAILY 10/17/18 10/17/18 History omeprazole 20 mg PO QAM 10/17/18 10/17/18 History oxycodone 30 - 60 mg PO Q4 PRN 10/17/18 10/17/18 History oxycodone-acetaminophen 1 - 2 tabs PO Q4H PRN 10/17/18 10/17/18 History prednisone 20 mg PO UD 10/17/18 10/17/18 History salmeterol [Serevent Diskus] 1 inh INHALATION BID 10/17/18 10/17/18 History Patient History Medical History Chronic hyponatremia (Chronic) COPD, severe (Chronic) Tobacco use disorder (Chronic) Hyperlipidemia (Chronic) Chronic back pain (Chronic) Psoriasis (Chronic) BPH (benign prostatic hypertrophy) (Chronic) Acute and chronic respiratory failure ([id number]) (Acute) PNA (pneumonia) (Acute) Unresponsive state (Resolved) Surgical History S/P tonsillectomy and adenoidectomy (Chronic) H/O colonoscopy (Chronic) "07/01/10- hyperplastic" Family History Father COPD (chronic obstructive pulmonary disease) Mother Alive and well Brother Alive and well Brother Alive and well Social History Preferred Language: [place] Communication Ability: Effective Communication Ability Comment: Cognitive status marital status: Current Living Situation: Alone current occupational status: disabled Feels Safe at Home: Yes Smoking Status: Unknown if ever smoked Review of Systems Review of Systems: A complete 10 point review of systems was reviewed with the patient with pertinent positives and negatives as per history of present illness. All else were negative. Physical Exam Physical Exam: VITAL SIGNS - Vital signs and nursing notes were reviewed. GENERAL - 58-year-old male appearing older than his stated age who is in no acute distress. SKIN - Without rashes. HEAD - NC/AT. EYES - PERRL with EOMI bilaterally. Sclera anicteric. Palpebral conjunctiva pink and moist with no injection noted. EARS - No deformities of external structures noted on gross examination bilaterally. No pain elicited with palpation of the tragus bilaterally. External auditory canals without discharge or otorrhea. Tympanic membranes pearly ty without retraction or bulging. No fluid or purulent material visualized behind the TM. Handle of malleus, umbo, cone of light, pars tensa/flaccid all easily visualized. NOSE - Midline and without cyanosis. No epistaxis or purulent drainage noted. Septum midline without deviation or septal hematoma noted. MOUTH/OROPHARYNX - Without perioral cyanosis. Buccal mucosa pink and moist and without leukoplakia. NECK - Neck with FROM. Supple to palpation. No lymphadenopathy noted. No nuchal rigidity. Kyphotic posture noted. LUNGS - Chest wall symmetric without accessory muscle use, intercostals retractions, or central cyanosis. Coarse breath sounds throughout. ABDOMEN - Abdominal contour flat without pulsations or visible masses. BS normoactive all four quadrants. No tenderness, palpable masses, hepatosplenomegaly, or ascites noted. EXTREMITIES - No clubbing or peripheral cyanosis. No pretibial edema present. +3/5 radial and dorsalis pedis pulses palpated throughout. +5/5 strength noted in UE/LE bilaterally. NEUROLOGIC - Cranial nerves II through XII grossly intact. Sensory intact to light touch throughout. PSYCH - A&Ox3. Confused at times, but easily directed. Results & Data Vital Signs (Past 12 Hours) Vital Signs Temp Pulse Pulse Resp BP BP Pulse Ox 10/17/18 21:17 106 H 19 139/86 88 L 10/17/18 20:47 103 H 22 124/93 86 L 10/17/18 19:16 101 H 24 113/76 88 L 10/17/18 18:11 112 H 30 H 84 L 10/17/18 17:30 91 10/17/18 17:29 91 10/17/18 17:18 91 10/17/18 17:10 106 H 20 126/79 89 L 10/17/18 17:08 110 H 16 92 10/17/18 17:00 113 H 15 82 L 10/17/18 16:33 106 H 12 90 10/17/18 16:17 36.5 C 104 H 22 117/67 82 L (1) Respiratory failure Chronicity: acute Respiratory failure complication: hypoxia and hypercapnia Qualified Code(s): J96.01 - Acute respiratory failure with hypoxia; J96.02 - Acute respiratory failure with hypercapnia (2) Pneumonia Laterality: unspecified laterality Lung location: unspecified part of lung Pneumonia type: due to unspecified organism Qualified Code(s): J18.9 - Pneumonia, unspecified organism
--- NOTE | 2018-10-17 21:55 | CT Scan Report ---
CT head/brain wo con CLINICAL HISTORY: 58 years-old Male presenting with ams, difficulty breathing when laying flat. TECHNIQUE: Multidetector CT imaging of the head was performed without the use of intravenous contrast . IV contrast: None. One or more dose lowering techniques were used consistent with the principles of ALARA (as low as reasonably achievable), including automatic exposure control, mA or kV adjustment t o individual patient size, and/or use of iterative reconstruction. COMPARISON: 07/05/2017. CT DOSE (mGy.cm): The estimated cumulative dose is 537.48 mGy.cm. FINDINGS: Hub Cutter Apprentice topogram: Unremarkable. Ventricles and sulci normal in size. No hemorrhage. Brain parenchyma normal in appearance with preser senia ty-white differentiation. No acute territorial infarct. No mass effect or midline shift. No ext ra-axial fluid collection. Paranasal sinuses and mastoid air cells clear. Calvarium intact. IMPRESSION: 1. No acute intracranial abnormality. Electronically signed by: Duane Cuevas M.D. 10/17/2018 9:53 PM
--- NOTE | 2018-10-17 22:08 | CT Scan Report ---
CT chest wo con CLINICAL HISTORY: 58 years-old Male presenting with sob, copd, ?pna. TECHNIQUE: Multidetector CT imaging of the chest was performed without the use of intravenous contras t. IV contrast: None. One or more dose lowering techniques were used consistent with the principles o f ALARA (as low as reasonably achievable), including automatic exposure control, mA or kV adjustment to individual patient size, and/or use of iterative reconstruction. COMPARISON: CTA chest from 08/12/2016. CT DOSE (mGy.cm): The estimated cumulative dose is 246.54 mGy.cm. 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 Soft tissues: Normal thyroid and thoracic inlet. No axillary, supraclavicular, or mediastinal lymphad enopathy. Evaluation of the zaina limited without intravenous contrast. Atherosclerosis of the aorta. Multichamber enlargement of the heart. Coronary artery calcification. No pericardial or pleural effus ion. Cholelithiasis. Lungs and airways: No pneumothorax. Debris in the proximal left mainstem bronchus. Severe upper lobe predominant centrilobular emphysema. Pulmonary arteries enlarged relative to adjacent bronchi. Minima l dependent groundglass opacity likely atelectasis. Additionally, the solid subpleural nodule in the superior segment of the right lower lobe now measures 9 mm (series 4 image 184), previously 8 mm. Thi s has been largely stable since 2012 consistent with benignity. Multiple solid nodules are noted bila terally largely unchanged from prior. Solid slightly spiculated 6 mm nodule in the lingula is new fro m prior (series 4 image 222). Musculoskeletal: Normal osseous structures. IMPRESSION: 1. Severe emphysema. No superimposed infiltrate to suggest pneumonia. Scattered areas of scarring ar e largely similar to prior. However, a new solid 6 mm nodule is present in the lingula. The morpholog y and interval development of suspicious. 3-6 month follow-up CT recommended. Summary of Fleischner Society 2017 Recommendations (H Shavon et al. Guidelines for management of i ncidental pulmonary nodules detected on CT images: From the Fleischner Society 2017. Radiology 2017; 284: 228-243.) SOLID NODULES Single nodule; size < 6 mm * Low risk patients: No routine follow-up * High risk patients: Optional CT at 12 months Single nodule; size 6-8 mm * Low risk patients: CT at 6-12 months, then consider CT at 18-24 months * High risk patients: CT at 6-12 months, then at 18-24 months Single nodule; size > 8 mm * Either low or high risk patients: Considered CT at 3 months, PET/CT, or tissue sampling Multiple nodules; size < 6 mm * Low risk patients: No routine follow up * High risk patients: Optional CT at 12 months Multiple nodules; size 6-8 mm * Low risk patients: CT at 3-6 months, then consider CT at 18-24 months * High risk patients: CT at 3-6 months, then at 18-24 months Multiple nodules; size > 8 mm * Low risk patients: CT at 3-6 months, then consider at 18-24 months * High risk patients: CT at 3-6 months, then at 18-24 months SUBSOLID NODULES Single ground-glass nodule * Nodule size < 6 mm: No routine follow-up * Nodule size > or = 6 mm: CT at 6-12 months to confirm persistence, then CT every 2 years until 5 y ears Single part-solid nodule * Nodule size < 6 mm: No routine follow-up * Nodules size > or = 6 mm: CT at 3-6 months to confirm persistence. If unchanged and solid componen t remains < 6 mm, annual CT should be performed for 5 years Multiple nodules * Nodule size < 6 mm: CT at 3-6 months. If stable, consider CT at 2 and 4 years. * Nodules size > or = 6 mm: CT at 3-6 months. Subsequent management based on the most suspicious nod ule(s) NOTE: 1) These guidelines apply to incidental nodules. These guidelines do NOT apply to patients younger th an 35 years, immunocompromised patients, or patients with cancer. 2) Risk categories: * Low risk patients: Minimal or absent history of smoking and/or other known risk factors * High risk patients: History of smoking, exposure to other carcinogens, emphysema, fibrosis, upper lobe location, family history of lung cancer, etc. 3) If a nodule up to 8 mm is partly solid or is ground glass, further follow-up is required after 24 months to exclude possible slow growing adenocarcinoma. Electronically signed by: Duane Cuevas M.D. 10/17/2018 10:07 PM
--- NOTE | 2018-10-17 22:18 | Emergency Department Note ---
Entered by Zia Westfall acting as a scribe for History of Present Illness General Chief complaint: Shortness of Breath/Dyspnea Stated complaint: BREATHING Source: patient and family Limitations: no limitations History of Present Illness Provider complaint: SOB Onset (ago): week(s) (1) Location: chest Pain Consistency: + other (worsening) Maximum Pain Intensity: 10 Quality: + other (SOB) Associated symptoms: + chest pain and + other (Abdominal pain.) Treatments prior to arrival: other (2 Nebulzer treatments) The patient is a 58 year old male who presents to the Emergency Room with complaints of gradually worsening shortness of breath for the past 1 week. The patient's at bedside states that he has been becoming more short of breath and coughing for the past week. The cough has been producing a "thick brown" mucous. He is on 2L of oxygen at baseline, but has recently increased the oxygen throughout the day. The patient states that he has been using 3 Nebulizer treatments per day, and used 2 already today. He has not had any fevers. The patient is an everyday smoker. The notes that he has probably smoked 1 pack of cigarettes over the past 7 days. The patient does complain of lower chest/upper abdominal pain as well. He still has his gallbladder. Home Medications Home Medications Medication Instructions Recorded Confirmed Type Oxygen Home 10/17/18 10/17/18 History atorvastatin 20 mg PO HS 10/17/18 10/17/18 History doxycycline hyclate 100 mg PO BID 10/17/18 10/17/18 History fluticasone propionate 1 spray INTRANASAL DAILY 10/17/18 10/17/18 History folic acid 1 mg PO DAILY 10/17/18 10/17/18 History omeprazole 20 mg PO QAM 10/17/18 10/17/18 History oxycodone 30 - 60 mg PO Q4 PRN 10/17/18 10/17/18 History oxycodone-acetaminophen 1 - 2 tabs PO Q4H PRN 10/17/18 10/17/18 History prednisone 20 mg PO UD 10/17/18 10/17/18 History salmeterol [Serevent Diskus] 1 inh INHALATION BID 10/17/18 10/17/18 History Allergies Allergy/AdvReac Type Severity Reaction Status Date / Time No Known Allergies Allergy Verified 10/17/18 20:14 Past Med/Surg History Medical History Chronic hyponatremia (Chronic) COPD, severe (Chronic) Tobacco use disorder (Chronic) Hyperlipidemia (Chronic) Chronic back pain (Chronic) Psoriasis (Chronic) BPH (benign prostatic hypertrophy) (Chronic) Acute and chronic respiratory failure ([id number]) (Acute) PNA (pneumonia) (Acute) Unresponsive state (Resolved) Surgical History S/P tonsillectomy and adenoidectomy (Chronic) H/O colonoscopy (Chronic) "07/01/10- hyperplastic" Family History Father COPD (chronic obstructive pulmonary disease) Mother Alive and well Brother Alive and well Brother Alive and well Social History Preferred Language: Kiswahili Communication Ability: Impaired Communication Ability Comment: Cognitive status marital status: Current Living Situation: Spouse current occupational status: disabled Feels Safe at Home: Yes Smoking Status: Heavy tobacco smoker Hx Alcohol Use: No Hx Substance Use: Yes substance use type: prescription drug Last Used Substance: Just Prior to Arrival Review of Systems See HPI for pertinent positives & negatives. and A total of 10 systems reviewed and were otherwise negative Physical Exam Vital Signs Vital Signs - 24 hr 10/17/18 16:17 10/17/18 16:33 10/17/18 17:00 Temperature 36.5 C Temperature Source Oral Sepsis Recent Fever Within 48 Hours No Sepsis New/Unexplained Change in Mental Status No Sepsis Action Taken by Nursing No Action Required Pulse Rate 104 H 106 H 113 H Pulse Rate [Right Ear Lobe] Pulse Rate from SpO2 Sensor 106 H 113 H Respiratory Rate 22 12 15 Respiratory Effort / Characteristics Non-Labored Spontaneous Respiratory Depth Normal Respiratory Pattern Regular Blood Pressure 117/67 Blood Pressure [Right Arm] Blood Pressure Mean 83 Blood Pressure Mean [Right Arm] Blood Pressure Position Sitting Blood Pressure Position [Right Arm] Pulse Oximetry 82 L 90 82 L Oxygen Delivery Method Nasal Cannula Room Air Oxygen Flow Rate 2.5 10/17/18 17:08 10/17/18 17:10 10/17/18 17:18 Temperature Temperature Source Sepsis Recent Fever Within 48 Hours Sepsis New/Unexplained Change in Mental Status Sepsis Action Taken by Nursing Pulse Rate 110 H 106 H Pulse Rate [Right Ear Lobe] Pulse Rate from SpO2 Sensor 110 H 106 H Respiratory Rate 16 20 Respiratory Effort / Characteristics Respiratory Depth Respiratory Pattern Blood Pressure 126/79 Blood Pressure [Right Arm] Blood Pressure Mean 95 94 Blood Pressure Mean [Right Arm] Blood Pressure Position Blood Pressure Position [Right Arm] Pulse Oximetry 92 89 L 91 Oxygen Delivery Method Nasal Cannula Nasal Cannula Nasal Cannula Oxygen Flow Rate 3 3 4 10/17/18 17:29 10/17/18 17:30 10/17/18 18:11 Temperature Temperature Source Sepsis Recent Fever Within 48 Hours Sepsis New/Unexplained Change in Mental Status Sepsis Action Taken by Nursing Pulse Rate Pulse Rate [Right Ear Lobe] 112 H Pulse Rate from SpO2 Sensor Respiratory Rate 30 H Respiratory Effort / Characteristics Spontaneous Moaning Short of Breath Splinting (from pain) Respiratory Depth Respiratory Pattern Blood Pressure Blood Pressure [Right Arm] Blood Pressure Mean Blood Pressure Mean [Right Arm] Blood Pressure Position Blood Pressure Position [Right Arm] Pulse Oximetry 91 91 84 L Oxygen Delivery Method Nasal Cannula Nasal Cannula Nasal Cannula Oxygen Flow Rate 4 4 5 10/17/18 19:16 10/17/18 20:47 10/17/18 21:17 Temperature Temperature Source Sepsis Recent Fever Within 48 Hours Sepsis New/Unexplained Change in Mental Status Sepsis Action Taken by Nursing Pulse Rate 106 H Pulse Rate [Right Ear Lobe] 101 H 103 H Pulse Rate from SpO2 Sensor Respiratory Rate 24 22 19 Respiratory Effort / Characteristics Respiratory Depth Respiratory Pattern Blood Pressure 139/86 Blood Pressure [Right Arm] 113/76 124/93 Blood Pressure Mean Blood Pressure Mean [Right Arm] 88 103 Blood Pressure Position Blood Pressure Position [Right Arm] Sitting Pulse Oximetry 88 L 86 L 88 L Oxygen Delivery Method Nasal Cannula Nasal Cannula Nasal Cannula Oxygen Flow Rate 6 6 5 Constitutional: Vital signs reviewed. Eyes: Pupils are equal round reactive to light. Conjunctiva are noninjected. ENT: Pharynx is clear without erythema or exudate. Mucous membranes are moist. Neck supple without meningeal signs. Respiratory: Clear to auscultation bilaterally. Breath sounds are equal bilaterally. Patient is on Hypoxic on 2L. Cardiovascular: Tachycardic with regular rhythm. No rubs or gallops. GI: Soft, nondistended. There is RUQ tenderness, no Pineda's sign. Bowel sounds are present. Musculoskeletal: Mild bilateral ankle edema. No lower extremity tenderness. Integumentary: No cyanosis. Neurological: The patient is awake and alert. No focal deficits. Psychiatric: Normal affect. Course 1627: The patient was evaluated in room C5, and a complete history and physical examination were performed. 1757: I updated the patient. He now has diffuse wheezing. 1800: I reviewed the patient's case with Mariaelena Matta [facility] Hospitalist TRISTAN. She will evaluate the patient for further management. 1855: I checked on the patient. He is becoming increasingly confused. He will go on Bi-Pap. Administered Medications Discontinued Medications Albuterol (Duoneb) 3 ml INH NOW STA Stop: 10/17/18 16:34 Last Admin: 10/17/18 17:35 Dose: 3 ml Documented by: [id number] Albuterol (Duoneb) 9 ml NEB ONE ONE Stop: 10/17/18 17:59 Last Admin: 10/17/18 18:10 Dose: 9 ml Documented by: [id number] Piperacillin Sod/Tazobactam Sod (Zosyn) 4.5 gm in 120 mls @ 240 mls/hr IV NOW ONE Stop: 10/17/18 18:19 Last Infusion: 10/17/18 18:34 Dose: 0 mls/hr Documented by: [id number] Admin: 10/17/18 17:58 Dose: 240 mls/hr Documented by: [id number] Methylprednisolone (Solumedrol) 60 mg IV NOW STA Stop: 10/17/18 16:34 Last Admin: 10/17/18 17:58 Dose: 60 mg Documented by: [id number] Medical Decision Making Differential Diagnosis Differential Diagnosis includes: COPD exacerbation, pulmonary emboli, pneumonia, cholecystitis, pancreatitis, cardiac etiologies. Medical Records Attestation: I reviewed the patient's medical records. I did perform a limited focused review of portions of the patient's old chart on the electronic medical record. The patient has had no recent pertinent visits to this hospital. Home Medications Current Medication List: was personally reviewed by me Laboratory Data Attestation: I reviewed the patient's lab results. Result diagrams: 10/17/18 17:05 10/17/18 17:05 Lab Results 10/17/18 10/17/18 10/17/18 Range/Units 17:05 17:05 17:05 WBC 4.58 L (4.8-10.8) K/uL RBC 4.19 L (4.7-6.1) M/uL Hgb 12.9 L (14.0-18.0) g/dL Hct 40.9 L (42-52) % MCV 97.6 (80-100) fL MCH 30.8 (25-34) pg MCHC 31.5 L (32-36) g/dL RDW Std Deviation 50.1 H (36.4-46.3) fL RDW Coeff of Sirena 14.1 (11.5-14.5) % Plt Count 142 (130-400) K/uL MPV 9.7 (7.4-10.4) fL Immature Gran % (Auto) 0.7 % Neut % (Auto) 85.3 % Lymph % (Auto) 9.4 % Castro % (Auto) 4.6 % Eos % (Auto) 0.0 % Baso % (Auto) 0.0 % Immature Gran # (Auto) 0.03 H (0.00-0.02) K/uL Neut # (Auto) 3.91 (1.4-6.5) K/uL Lymph # (Auto) 0.43 L (1.2-3.4) K/uL Castro # (Auto) 0.21 (0.11-0.59) K/uL Eos # (Auto) 0.00 (0-0.5) K/uL Baso # (Auto) 0.00 (0-0.2) K/uL PT 11.7 (9.0-12.0) Seconds INR 1.2 H (0.9-1.1) APTT 26.0 (21.0-31.0) Seconds PTT Ratio 1.0 POC D-Dimer (0-450) ng/mlFEU ABG pH ABG pCO2 ABG pO2 ABG HCO3 ABG O2 Saturation ABG Base Excess Eleazar Test Barometric Pressure Oxygen Given Sodium 132 L (136-145) mmol/L Potassium 4.1 (3.5-5.1) mmol/L Chloride 91 L (98-107) mmol/L Carbon Dioxide 35 H (21-32) mmol/L Anion Gap 5.0 (3-11) BUN 13 (7-18) mg/dl Creatinine 0.78 (0.6-1.4) mg/dl Est Cr Clr Drug Dosing 108.2 ml/min Est GFR ( Amer) 114.5 Est GFR (Non-Af Amer) 98.8 BUN/Creatinine Ratio 15.9 (10-20) Glucose 130 H (70-99) mg/dl Lactate (0.4-2.0) mmol/L Calcium 9.9 (8.5-10.1) mg/dl Total Bilirubin 0.3 (0.2-1) mg/dl AST 21 (15-37) U/L ALT 20 (12-78) U/L Alkaline Phosphatase 126 H (45-117) U/L POC Troponin I (0-0.045) ng/ml Total Protein 6.6 (6.4-8.2) gm/dl Albumin 3.4 (3.4-5.0) gm/dl Globulin 3.2 (2.5-4.0) gm/dl Albumin/Globulin Ratio 1.1 (0.9-2) Lipase 27 L (73-393) U/L Procalcitonin (0-0.5) ng/ml Influenza Type A Ag (Neg) Influenza Type B Ag (Neg) 10/17/18 10/17/18 10/17/18 Range/Units 17:05 17:08 17:29 WBC (4.8-10.8) K/uL RBC (4.7-6.1) M/uL Hgb (14.0-18.0) g/dL Hct (42-52) % MCV (80-100) fL MCH (25-34) pg MCHC (32-36) g/dL RDW Std Deviation (36.4-46.3) fL RDW Coeff of Sirena (11.5-14.5) % Plt Count (130-400) K/uL MPV (7.4-10.4) fL Immature Gran % (Auto) % Neut % (Auto) % Lymph % (Auto) % Castro % (Auto) % Eos % (Auto) % Baso % (Auto) % Immature Gran # (Auto) (0.00-0.02) K/uL Neut # (Auto) (1.4-6.5) K/uL Lymph # (Auto) (1.2-3.4) K/uL Castro # (Auto) (0.11-0.59) K/uL Eos # (Auto) (0-0.5) K/uL Baso # (Auto) (0-0.2) K/uL PT (9.0-12.0) Seconds INR (0.9-1.1) APTT (21.0-31.0) Seconds PTT Ratio POC D-Dimer 303 (0-450) ng/mlFEU ABG pH ABG pCO2 ABG pO2 ABG HCO3 ABG O2 Saturation ABG Base Excess Eleazar Test Barometric Pressure Oxygen Given Sodium (136-145) mmol/L Potassium (3.5-5.1) mmol/L Chloride (98-107) mmol/L Carbon Dioxide (21-32) mmol/L Anion Gap (3-11) BUN (7-18) mg/dl Creatinine (0.6-1.4) mg/dl Est Cr Clr Drug Dosing ml/min Est GFR ( Amer) Est GFR (Non-Af Amer) BUN/Creatinine Ratio (10-20) Glucose (70-99) mg/dl Lactate (0.4-2.0) mmol/L Calcium (8.5-10.1) mg/dl Total Bilirubin (0.2-1) mg/dl AST (15-37) U/L ALT (12-78) U/L Alkaline Phosphatase (45-117) U/L POC Troponin I 0.03 (0-0.045) ng/ml Total Protein (6.4-8.2) gm/dl Albumin (3.4-5.0) gm/dl Globulin (2.5-4.0) gm/dl Albumin/Globulin Ratio (0.9-2) Lipase Cancelled (73-393) U/L Procalcitonin 12.27 H (0-0.5) ng/ml Influenza Type A Ag (Neg) Influenza Type B Ag (Neg) 10/17/18 10/17/18 10/17/18 Range/Units 18:03 18:10 20:12 WBC (4.8-10.8) K/uL RBC (4.7-6.1) M/uL Hgb (14.0-18.0) g/dL Hct (42-52) % MCV (80-100) fL MCH (25-34) pg MCHC (32-36) g/dL RDW Std Deviation (36.4-46.3) fL RDW Coeff of Sirena (11.5-14.5) % Plt Count (130-400) K/uL MPV (7.4-10.4) fL Immature Gran % (Auto) % Neut % (Auto) % Lymph % (Auto) % Castro % (Auto) % Eos % (Auto) % Baso % (Auto) % Immature Gran # (Auto) (0.00-0.02) K/uL Neut # (Auto) (1.4-6.5) K/uL Lymph # (Auto) (1.2-3.4) K/uL Castro # (Auto) (0.11-0.59) K/uL Eos # (Auto) (0-0.5) K/uL Baso # (Auto) (0-0.2) K/uL PT (9.0-12.0) Seconds INR (0.9-1.1) APTT (21.0-31.0) Seconds PTT Ratio POC D-Dimer (0-450) ng/mlFEU ABG pH Cancelled 7.31 L ABG pCO2 Cancelled 76 H ABG pO2 Cancelled 48 L ABG HCO3 Cancelled 38 H ABG O2 Saturation Cancelled 81.7 L ABG Base Excess Cancelled 8.3 H Eleazar Test Cancelled Pos Barometric Pressure Cancelled 733.8 Oxygen Given Cancelled 5 LITERS Sodium (136-145) mmol/L Potassium (3.5-5.1) mmol/L Chloride (98-107) mmol/L Carbon Dioxide (21-32) mmol/L Anion Gap (3-11) BUN (7-18) mg/dl Creatinine (0.6-1.4) mg/dl Est Cr Clr Drug Dosing ml/min Est GFR ( Amer) Est GFR (Non-Af Amer) BUN/Creatinine Ratio (10-20) Glucose (70-99) mg/dl Lactate (0.4-2.0) mmol/L Calcium (8.5-10.1) mg/dl Total Bilirubin (0.2-1) mg/dl AST (15-37) U/L ALT (12-78) U/L Alkaline Phosphatase (45-117) U/L POC Troponin I (0-0.045) ng/ml Total Protein (6.4-8.2) gm/dl Albumin (3.4-5.0) gm/dl Globulin (2.5-4.0) gm/dl Albumin/Globulin Ratio (0.9-2) Lipase (73-393) U/L Procalcitonin (0-0.5) ng/ml Influenza Type A Ag Neg for Influ A (Neg) Influenza Type B Ag Neg for Influ B (Neg) 10/17/18 Range/Units 20:12 WBC (4.8-10.8) K/uL RBC (4.7-6.1) M/uL Hgb (14.0-18.0) g/dL Hct (42-52) % MCV (80-100) fL MCH (25-34) pg MCHC (32-36) g/dL RDW Std Deviation (36.4-46.3) fL RDW Coeff of Sirena (11.5-14.5) % Plt Count (130-400) K/uL MPV (7.4-10.4) fL Immature Gran % (Auto) % Neut % (Auto) % Lymph % (Auto) % Castro % (Auto) % Eos % (Auto) % Baso % (Auto) % Immature Gran # (Auto) (0.00-0.02) K/uL Neut # (Auto) (1.4-6.5) K/uL Lymph # (Auto) (1.2-3.4) K/uL Castro # (Auto) (0.11-0.59) K/uL Eos # (Auto) (0-0.5) K/uL Baso # (Auto) (0-0.2) K/uL PT (9.0-12.0) Seconds INR (0.9-1.1) APTT (21.0-31.0) Seconds PTT Ratio POC D-Dimer (0-450) ng/mlFEU ABG pH ABG pCO2 ABG pO2 ABG HCO3 ABG O2 Saturation ABG Base Excess Eleazar Test Barometric Pressure Oxygen Given Sodium (136-145) mmol/L Potassium (3.5-5.1) mmol/L Chloride (98-107) mmol/L Carbon Dioxide (21-32) mmol/L Anion Gap (3-11) BUN (7-18) mg/dl Creatinine (0.6-1.4) mg/dl Est Cr Clr Drug Dosing ml/min Est GFR ( Amer) Est GFR (Non-Af Amer) BUN/Creatinine Ratio (10-20) Glucose (70-99) mg/dl Lactate 1.9 (0.4-2.0) mmol/L Calcium (8.5-10.1) mg/dl Total Bilirubin (0.2-1) mg/dl AST (15-37) U/L ALT (12-78) U/L Alkaline Phosphatase (45-117) U/L POC Troponin I (0-0.045) ng/ml Total Protein (6.4-8.2) gm/dl Albumin (3.4-5.0) gm/dl Globulin (2.5-4.0) gm/dl Albumin/Globulin Ratio (0.9-2) Lipase (73-393) U/L Procalcitonin (0-0.5) ng/ml Influenza Type A Ag (Neg) Influenza Type B Ag (Neg) Imaging Data Radiologist's Impression: XR chest 1V portable CLINICAL HISTORY: 58 years-old Male presenting with Dyspnea. TECHNIQUE: Portable upright AP view of the chest was obtained. COMPARISON: 06/02/2018. FINDINGS: Atherosclerosis of the aortic arch. Cardiac silhouette top normal in size. Diffusely heterogeneous lung parenchyma with radiolucency of the right upper lung as on prior exam. Pulmonary vascular prominence and diffuse added density of the left lung and right lung base. This appearance has increased from prior exam. Possible underlying lung cysts or emphysematous change in the left upper l obe. Bronchial wall thickening may also be present. No large pleural effusion or gross evidence of pneumothorax allowing for the degree of radiolucency in the right upper lung. Osseous structures normal. IMPRESSION: 1. Findings suggest superimposed diffuse infiltrate on a background of chronic lung disease, likely emphysema. This could represent multifocal pneumonia or edema superimposed on emphysema. Electronically signed by: Duane Cuevas M.D. 10/17/2018 5:13 PM ECG Data Attestation: I personally reviewed and interpreted this ECG as follows: Indication: SOB/dyspnea Rate (beats per minute): 111 Rhythm: sinus tachycardia Findings: + other (limited interpretation due to motion artifact); no ST elevation Blood Pressure Blood Pressure Findings: Normal blood pressure MDM Narrative I did evaluate the patient as noted above. The patient is presenting with worsening shortness of breath with a productive cough. I did initially treat him with an albuterol DuoNeb. IV access was established. He was given Solu- Medrol IV. The patient was placed on a continuous nurse monitoring. I did order and personally review the patient's 12-lead EKG as described above. There is no evidence of acute ischemia on his twelve-lead EKG. He is slightly tachycardic. I did order and personally reviewed the images of the patient's chest x-ray as described above. He does have what appears to be a multifocal pneumonia. I did order blood cultures. I did treat him with Zosyn IV. I did order and review the patient's blood work as noted in the electronic medical record. He is anemic. His white count is 4.6. He has mild hyponatremia. I did reassess the patient. On reexamination he has better air entry and more obvious wheezing on exam. I did write him for a hour-long DuoNeb and recommended hospitalization. I did discuss case with the hospitalist and telehealth case manager. The patient later became somewhat confused and he was placed on BiPAP. ABG demonstrated hypercapnia with hypoxemia. He was admitted for further care. The patient did have some right upper quadrant tenderness on exam. I did order a right upper quadrant ultrasound which is currently pending. His LFTs and lipase are unrema rkable. Impression & Plan Respiratory failure, Hypoxia, COPD exacerbation, Pneumonia, Abdominal pain, RUQ Critical Care Time I have personally spent 40 minutes of critical care time in the direct ma nagement of this patient. This includes bedside care, interpretation of diagnostic studies, and testing, discussion with consultants, patient, and family members, and other required patient management activities. This 40 minutes is in excess of all separately billable procedures. Critical Care Time: Yes Total Critical Care Time: 40 Discharge Plan Visit Data Chief Complaint: Shortness of Breath/Dyspnea Stated Complaint: BREATHING ED Provider: Wil Sanz Discharge Problem: Respiratory failure, Hypoxia, COPD exacerbation, Pneumonia, Abdominal pain, RUQ Patient Disposition: Being Evaluated by Hospitalist Discharge Instructions Interventions: ED Discharge Assessment Last Done: 10/17/18 21:17 Discharge Problem: Respiratory failure Qualifiers: Chronicity: acute Respiratory failure complication: hypoxia and hypercapnia Qualified Code(s): J96.01 - Acute respiratory failure with hypoxia Pneumonia Qualifiers: Pneumonia type: due to unspecified organism Laterality: unspecified laterality Lung location: unspecified part of lung Qualified Code(s): J18.9 - Pneumonia, unspecified organism The scribe's documentation has been prepared under my direction and personally reviewed by me in its entirety. I confirm that the note above accurately refl ects all work, treatment, procedures, and medical decision making performed by me.
[2018-10-17] MEDS ORDERED: ONDANSETRON INJ 2 MG/ML 2 ML VIAL IV PRN (22:20)
[2018-10-17] MEDS ORDERED: OXYCODONE HCL IR 30 MG TAB (IMMEDIATE RELEASE) PO PRN (22:20)
[2018-10-17] MEDS ORDERED: ICU PROTOCOL FOR HYPERGLYCEMIA PRN (22:20)
[2018-10-17] MEDS ORDERED: ACETAMINOPHEN 325 MG TAB PO PRN (22:20)
[2018-10-17] MEDS ORDERED: MAGNESIUM HYDROXIDE SUSP 30 ML UDC PO PRN (22:20)
[2018-10-17] MEDS ORDERED: POLYETHYLENE (MIRALAX) 17 GM PACK PO PRN (22:20)
[2018-10-17] MEDS ORDERED: ALUMINUM/MAGNESIUM SUSP 30 ML UDC PO PRN (22:20)
[2018-10-17] MEDS ORDERED: VANCOMYCIN CONSULT ACTIVE PRN (22:20)
[2018-10-17] MEDS ORDERED: FUROSEMIDE 20 MG in SYRINGE 0 ML IV ONE (22:45)
[2018-10-17] MEDS ORDERED: VANCOMYCIN HCL 1,750 MG in SODIUM CHLORIDE 0.9% 500 ML IV ONE (23:00)
[2018-10-17] MEDS ORDERED: DOXYCYCLINE HYCLATE 100 MG in DEXTROSE 5% 100 ML IV SCH (23:00)
[2018-10-17 23:35] LABS: iSTAT Allen Test Pass; iSTAT Arterial Bld Gas O2 Sat 80; iSTAT FiO2 35 %; iSTAT Hematocrit 39 % (42-52); iSTAT Hemoglobin 13.3 g/dl (14.0-18.0); iSTAT Potassium 4.1 mEq/L (3.3-5.0); iSTAT Site R Radial; iSTAT Sodium 130 mEq/L (135-144)
[2018-10-17] MEDS: ATORVASTATIN 20 MG TAB PO SCH (23:53)
[2018-10-17] MEDS: SALMETEROL XINAFOATE 50MCG 28 BLISTER INH INH SCH (23:55)
[2018-10-17] MEDS: ALBUT/IPRATROP 3MG/0.5MG NEB 3 ML VIAL NEB SCH (23:55)
[2018-10-18] MEDS ORDERED: PIPERACILLIN/TAZOBACTAM 4.5 GM in DEXTROSE 5% 100 ML IV SCH
[2018-10-18] MEDS: ALBUT/IPRATROP 3MG/0.5MG NEB 3 ML VIAL NEB SCH ×7 (00:07→23:06)
[2018-10-18 00:16] LABS: Appearance Urine Clear (Clear); Bilirubin Urine Negative (Negative); Blood Urine Negative (Negative); Color Urine Yellow; Glucose Urine UA Negative (Negative); Ketones Urine Negative (Negative); Leukocyte Esterase Urine Negative (Negative); Nitrite Urine Negative (Negative); Protein Urine Negative (Negative); Specific Gravity Urine 1.017 (1.000-1.030); Urobilinogen Urine Negative (Negative)
[2018-10-18 01:20] LABS: iSTAT Allen Test Pass; iSTAT Arterial Bld Gas O2 Sat 88; iSTAT FiO2 35 %; iSTAT Hematocrit 39 % (42-52); iSTAT Hemoglobin 13.3 g/dl (14.0-18.0); iSTAT Potassium 3.8 mEq/L (3.3-5.0); iSTAT Site L Radial; iSTAT Sodium 131 mEq/L (135-144)
[2018-10-18] MEDS ORDERED: methylPREDNISolone 40 MG in SYRINGE 0 ML IV SCH (02:00)
[2018-10-18 02:41] LABS: iSTAT Allen Test Pass; iSTAT Arterial Bld Gas O2 Sat 91; iSTAT FiO2 35 %; iSTAT Hematocrit 38 % (42-52); iSTAT Hemoglobin 12.9 g/dl (14.0-18.0); iSTAT Site R Radial; iSTAT Sodium 131 mEq/L (135-144)
[2018-10-18] MEDS ORDERED: PROPOFOL 1,000 MG/100 ML VIAL IV PRN (02:52)
[2018-10-18] MEDS ORDERED: RAPID SEQUENCE INDUCTION BAG ONE (02:57)
[2018-10-18 03:36] LABS: iSTAT Allen Test Pass; iSTAT FiO2 35 %; iSTAT Hematocrit 41 % (42-52); iSTAT Hemoglobin 13.9 g/dl (14.0-18.0); iSTAT Potassium 4.2 mEq/L (3.3-5.0); iSTAT Site L Radial; iSTAT Sodium 130 mEq/L (135-144)
[2018-10-18 04:40] LABS: Hemoglobin 12.7 g/dL (14.0-18.0); Immature Granulocytes # (auto) 0.04 K/uL (0.00-0.02); Immature Granulocytes % (auto) 1.3 %; Lymphocytes # (auto) 0.34 K/uL (1.2-3.4); Lymphocytes % (auto) 10.7 %; Mean Corpuscular Hgb Conc 32.6 g/dL (32-36); Mean Corpuscular Volume 94.2 fL (80-100); Mean Platelet Volume 10.3 fL (7.4-10.4); Monocytes # (auto) 0.08 K/uL (0.11-0.59); Monocytes % (auto) 2.5 %; Neutrophils # (auto) 2.73 K/uL (1.4-6.5); Neutrophils % (auto) 85.5 %; Platelet Count 160 K/uL (130-400); RDW Standard Deviation 48.2 fL (36.4-46.3); Red Blood Count 4.14 M/uL (4.7-6.1); White Blood Count 3.19 K/uL (4.8-10.8)
[2018-10-18] MEDS ORDERED: MoRPHine SULFATE 2 MG/ML CARP IV STA (04:51)
--- NOTE | 2018-10-18 04:52 | Procedure Note ---
Procedure Note Date of Service October 18, 2018 Procedure: Arterial Line Placement Attending: Dr. Kang APC: Low Prado PA-C Indication: Monitoring on Pressors Anesthesia: Lidocaine 1% Verbal consent was obtained in the setting of worsening pulmonary status and the need for recurrent ABGs and frequent lab draws. A time-out was completed verifying correct patient, procedure, site, positioning, and implant(s) or special equipment if applicable. Allens test was performed to ensure adequate perfusion. Patients LEFT wrist was prepped and draped in the usual sterile fashion. Ultrasound guidance was used to aid needle placement. A 20g Arrow arterial line was introduced into the LEFT Radial artery. Catheter was threaded, and the needle was removed with appropriate blood return. Good waveform was observed. The patient tolerated the procedure well. Confirmation of placement with ultrasound. Blood Loss: Minimal Complications: None Procedural Ultrasound Guidance: Procedure Date: 10/18/2018 Indication: Frequent ABGs in the setting of respiratory failure. Attending: Dr. Kang APC: Low Prado PA-C Artery Identified: YES Line confirmed in Artery with ultrasound: YES Complications: NONE Patient tolerated procedure: WELL Coding
[2018-10-18 04:59] LABS: BUN Creatinine Ratio 14.5 (10-20); Calcium 9.1 mg/dl (8.5-10.1); Creatinine Clr Calc Pharmacy 101.3 ml/min; Est GFR (African American) 115.7; Est GFR (Non-African American) 99.9
[2018-10-18 06:02] LABS: iSTAT Arterial Blood Gas HCO3 41 meg/L (19-24); iSTAT Arterial Blood Gas pCO2 61 mmHg (35-46); iSTAT Arterial Blood Gas pH 7.43 (7.35-7.45); iSTAT Carbon Dioxide > 40 mEq/l (24-31); iSTAT FiO2 35 %; iSTAT Site Art Line
--- NOTE | 2018-10-18 06:29 | Ultrasound Report ---
US gallbladder HISTORY: 58 years-old Male ruq pain eval for stone acute right upper quadrant abdominal pain COMPARISON: CTA of the chest 08/12/2016 TECHNIQUE: Multiple real-time sonographic images of the abdominal right upper quadrant were obtained assessing grayscale appearance and color flow FINDINGS: Pancreas is obscured secondary to overlying bowel gas. Liver appears prominent in size. Mild intrahep atic biliary ductal dilation. No focal hepatic mass lesions or evidence of cirrhosis. Trace perihepat ic ascites with trace pericholecystic fluid. Distended gallbladder contains layering cholelithiasis a nd comparison sludge. Gallbladder wall measures up to 2 mm in thickness. Common bile duct is dilated measuring 9 mm. Sonographic Pineda sign was unable to be assessed. Imaged right kidney demonstrates no hydronephrosis. IMPRESSION: 1. Distended gallbladder with cholelithiasis and layering gallbladder sludge. Additionally, there is trace perihepatic ascites and pericholecystic fluid. No significant wall thickening and the sonograph ic Pineda sign was unable to be assessed. Correlate clinically to exclude acute cholecystitis. Correl ation with nuclear medicine hepatobiliary scan may also be considered. 2. Mild intrahepatic and extrahepatic biliary ductal dilation. Correlate with laboratory analysis to exclude obstructive etiology. The above report was generated using voice recognition software. It may contain grammatical, syntax o r spelling errors. Electronically signed by: Jay Fernandes M.D. 10/18/2018 6:28 AM
--- NOTE | 2018-10-18 06:58 | XRay Report ---
XR chest 1V portable HISTORY: 58 years-old Male f/u acute shortness of breath COMPARISON: Chest radiograph 10/17/2018, chest CT 10/17/2018 TECHNIQUE: Portable AP view of the chest FINDINGS: Cardiomediastinal and hilar silhouettes are unchanged. Severe bullous emphysema with areas of chronic fibrosis. There is no pneumothorax, pleural effusion, focal airspace consolidation or overt pulmonar y edema. Degenerative changes of the shoulders and spine. IMPRESSION: Stable exam with severe bullous emphysema and chronic fibrosis. The above report was generated using voice recognition software. It may contain grammatical, syntax o r spelling errors. Electronically signed by: Jay Fernandes M.D. 10/18/2018 6:56 AM
[2018-10-18] MEDS ORDERED: PHARMACY GLYCEMIC MGMT CONSULT PRN (08:04)
[2018-10-18] MEDS ORDERED: PNEUMOCOCCAL ADMINISTRATION CHARGE ONE (08:18)
[2018-10-18] MEDS ORDERED: PNEUMOCOCCAL POLYSACCHARIDES 25 MCG/0.5 ML VIAL/SYR IM ONE (08:18)
[2018-10-18] MEDS ORDERED: INFLUENZA VIRUS QUAD VACCINE 0.5 ML SYR IM ONE (08:22)
[2018-10-18] MEDS ORDERED: INFLUENZA ADMINISTRATION CHARGE ONE (08:22)
[2018-10-18] MEDS ORDERED: VANCOMYCIN HCL 1,250 MG in SODIUM CHLORIDE 0.9% 250 ML IV SCH (10:00)
[2018-10-18] MEDS: AZITHROMYCIN 500 MG in DEXTROSE 5% 250 ML IV SCH (10:26)
[2018-10-18] MEDS: methylPREDNISolone 60 MG in SYRINGE 0 ML IV SCH ×3 (10:26→20:32)
[2018-10-18] MEDS: PANTOprazole 40 MG TAB PO SCH (10:27)
[2018-10-18] MEDS: FOLIC ACID 1 MG TAB PO SCH (10:27)
[2018-10-18] MEDS: FLUTICASONE PROPIONATE NA SPR 16 GM BTL SCH (10:27)
[2018-10-18] MEDS: NICOTINE 21 MG/24 HR TDSY TD SCH ×2 (10:28→11:56)
[2018-10-18] MEDS: ENOXAPARIN INJ 40 MG/0.4 ML SYR SQ SCH (10:28)
[2018-10-18] MEDS: SALMETEROL XINAFOATE 50MCG 28 BLISTER INH INH SCH ×2 (10:29→20:31)
[2018-10-18 11:56] LABS: Estimated Average Glucose 140 mg/dl; Hemoglobin A1C 6.5 % (4.5-5.6)
[2018-10-18] MEDS: OXYCODONE/ACETAMINOPHEN 10-325 TAB PO PRN ×2 (12:44→23:37)
[2018-10-18] MEDS: INSULIN ASPART 100 UNITS/ML 3 ML PEN SC SCH ×4 (12:45→23:38)
--- NOTE | 2018-10-18 13:00 | Pharmacy Report ---
Pharmacy Glycemic Short Note 2 - Date of Service October 18, 2018 - Glycemic Short BSG Results (Last 24 hours): 10/17/18 10/18/18 10/18/18 17:05 04:31 11:25 Glucose 130 H 135 H POC Glucose 132 H OUTPATIENT ANTIDIABETIC REGIMEN: * n/a * A1c = 6.5% (within diabetic range) ASSESSMENT: * Patient admitted for COPD exac / PNA * Currently receiving high-dose IV steroids and abx therapy * Glycemic control is acceptable at this time despite current stressors * His diet is currently clears, and once this advances his glycemic control may deteriorate * Will base initial insulin orders upon weight: basal dose based upon mild stress given lack of significant rise in BSGs, rapid acting doses based upon moderate stress level. I am hesistant to give large prandial insulin doses given current BSG pattern. PLAN FOR INPATIENT GLYCEMIC CONTROL: * Basal insulin * Lantus SQ BID per scale: * 0 units if BSG less than 120 * 7 units if BSG 120-180 * 10 units if BSG above 180 * Bolus insulin * NovoLog per scale Q4hrs initially * Goal Range: Low 120 mg/dL - High 150 mg/dL * Correction Factor: 25 mg/dL/unit * Nutritional / Prandial insulin per carb ratio of 1 unit per 15 grams CHO consumed PLAN FOR DISCHARGE: * lifestyle modifications alone may suffice
[2018-10-18 14:35] LABS: iSTAT Arterial Blood Gas HCO3 44 meg/L (19-24); iSTAT Arterial Blood Gas pCO2 73 mmHg (35-46); iSTAT Arterial Blood Gas pH 7.39 (7.35-7.45); iSTAT Carbon Dioxide 46 mEq/l (24-31)
[2018-10-18 14:36] LABS: iSTAT Arterial Bld Gas O2 Sat 93
[2018-10-18 14:37] LABS: iSTAT Arterial Blood Gas pCO2 86 mmHg (35-46); iSTAT Arterial Blood Gas pH 7.33 (7.35-7.45)
[2018-10-18 14:38] LABS: iSTAT Arterial Blood Gas HCO3 45 meg/L (19-24); iSTAT Carbon Dioxide 48 mEq/l (24-31)
[2018-10-18 14:56] LABS: iSTAT Arterial Blood Gas pCO2 81 mmHg (35-46); iSTAT Arterial Blood Gas pH 7.31 (7.35-7.45)
[2018-10-18 14:57] LABS: iSTAT Arterial Blood Gas HCO3 40 meg/L (19-24); iSTAT Carbon Dioxide 43 mEq/l (24-31)
[2018-10-18 15:17] LABS: iSTAT Arterial Blood Gas HCO3 37 meg/L (19-24); iSTAT Arterial Blood Gas pCO2 76 mmHg (35-46); iSTAT Carbon Dioxide 39 mEq/l (24-31)
[2018-10-18] MEDS: HydrALAZINE HCL 20 MG/ML VIAL IV SCH ×2 (17:12→23:37)
--- NOTE | 2018-10-18 19:31 | Hospitalist Progress Note ---
Date of Service October 18, 2018 Assessment & Plan (1) Acute on chronic respiratory failure with hypoxia and hypercapnia: (2) Respiratory acidosis: (3) COPD exacerbation: (4) PNA (pneumonia): Present on admission with worsening SOB associated with cough CT chest showed no superimposed infiltrate to suggest pneumonia. CXR showed findings suggest superimposed diffuse infiltrate on a background of chronic lung disease, likely emphysema. Negative for influenza PCR ABG on admission showed pH 7.31 and PCO2 76 Received Vanco, Zosyn and Doxycycline abx change to Zithromax Continue solumedrol Pulmonary toilet with nebulizers, incentive spirometry ECHO showed no LV wall motion abnormality with EF 55-60% Continue monitor (5) Chronic back pain: Pain improves Continue oxycodone/hydrocodone Will hold for any drowsiness (6) Chronic hyponatremia: Stable monitor bmp (7) Hyperlipidemia: Continue lipitor (8) Tobacco use disorder: Counseling on smoking cessation On nicotine patch (9) DVT prophylaxis: Lovenox Disposition: Continue monitor in ICU Subjective Pt was seen and examined Lying in bed sleeping with no distress When I called pt name, he woke up Denies any chest pain, palpitation, dizziness Physical Exam Physical Exam: General- No acute distress Head- atraumatic Eyes- PERRL, EOMI, ENT- oropharynx clear Neck- supple, no JVD Lungs- clear to auscultation Heart- regular rhythm; no murmur Abdomen- normal bowel sounds, soft, nontender Extremities- no calf tenderness Neuro- alert, oriented, PERRL, EOMI; no facial palsy; no dysarthria Skin- warm & dry Results & Data Vital Signs (Past 12 Hours) Vital Signs Temp Pulse Pulse Resp BP Pulse Ox 10/18/18 19:19 82 20 86 L 10/18/18 17:00 94 H 22 172/117 H 89 L 10/18/18 16:00 85 13 179/107 H 88 L 10/18/18 15:47 85 10/18/18 15:00 36.9 C 84 15 166/104 H 92 10/18/18 14:48 82 18 94 10/18/18 14:32 92 10/18/18 14:00 82 14 141/83 H 91 10/18/18 13:00 96 H 24 122/86 90 10/18/18 12:00 97 H 18 138/86 93 10/18/18 11:37 16 92 10/18/18 11:00 79 18 159/107 H 96 10/18/18 10:00 82 17 168/106 H 91 10/18/18 09:00 84 16 183/127 H 94 10/18/18 08:39 82 18 174/112 H 95 10/18/18 08:00 36.5 C 74 14 169/98 H 92
[2018-10-18] MEDS: ATORVASTATIN 20 MG TAB PO SCH (20:33)
[2018-10-18] MEDS: INSULIN GLARGINE SOLOSTAR 100 UNITS/ML 3 ML PEN SC SCH (20:56)
[2018-10-19] MEDS: methylPREDNISolone 60 MG in SYRINGE 0 ML IV SCH ×2 (02:43→09:30)
[2018-10-19] MEDS: ALBUT/IPRATROP 3MG/0.5MG NEB 3 ML VIAL NEB SCH ×6 (03:12→23:22)
[2018-10-19] MEDS: INSULIN ASPART 100 UNITS/ML 3 ML PEN SC SCH ×6 (04:10→23:28)
[2018-10-19 05:10] LABS: Hematocrit (blood only) 42.5 % (42-52); Hemoglobin 14.5 g/dL (14.0-18.0); Mean Corpuscular Hgb Conc 34.1 g/dL (32-36); Mean Corpuscular Volume 91.4 fL (80-100); Platelet Count 155 K/uL (130-400); RDW Coefficient of Variation 13.9 % (11.5-14.5); RDW Standard Deviation 46.5 fL (36.4-46.3); Red Blood Count 4.65 M/uL (4.7-6.1); White Blood Count 5.82 K/uL (4.8-10.8)
[2018-10-19] MEDS: OXYCODONE/ACETAMINOPHEN 10-325 TAB PO PRN ×5 (05:23→20:57)
[2018-10-19] MEDS: HydrALAZINE HCL 20 MG/ML VIAL IV SCH (05:24)
[2018-10-19] MEDS ORDERED: VANCOMYCIN TROUGH ONE (05:30)
[2018-10-19 05:36] LABS: BUN Creatinine Ratio 23.6 (10-20); Calcium 9.5 mg/dl (8.5-10.1); Creatinine Clr Calc Pharmacy 114.9 ml/min; Est GFR (African American) 121.9; Est GFR (Non-African American) 105.2; Magnesium 1.8 mg/dl (1.8-2.4); Phosphorus 1.6 mg/dl (2.5-4.9); Potassium 3.4 mmol/L (3.5-5.1)
--- NOTE | 2018-10-19 06:57 | XRay Report ---
XR chest 1V portable HISTORY: 58 years-old Male f/u follow-up study in a patient with acute respiratory failure COMPARISON: Chest radiograph 10/18/2017, chest CT 10/17/2018 TECHNIQUE: Portable AP view of the chest FINDINGS: Cardiomediastinal and hilar silhouettes are unchanged. Severe bullous emphysema with areas of chronic fibrosis. There is no pneumothorax, pleural effusion or new focal airspace consolidation. Bibasilar opacities are unchanged suggesting areas of scarring with atelectasis. Degenerative changes of the sh oulders and spine. IMPRESSION: 1. No acute process. 2. Severe bullous emphysema with chronic interstitial coarsening related to fibrotic change. The above report was generated using voice recognition software. It may contain grammatical, syntax o r spelling errors. Electronically signed by: Jay Fernandes M.D. 10/19/2018 6:56 AM
[2018-10-19] MEDS ORDERED: POTASSIUM PHOS 3 MMOL/1 ML INFUSION IV STA (08:36)
[2018-10-19] MEDS ORDERED: POTASSIUM PHOSPHATE 21 MMOL in SODIUM CHLORIDE 0.9% 500 ML IV ONE (09:00)
[2018-10-19] MEDS: AZITHROMYCIN 500 MG in DEXTROSE 5% 250 ML IV SCH (09:22)
[2018-10-19] MEDS: HydrALAZINE TAB 50 MG TAB PO SCH ×3 (09:24→20:51)
[2018-10-19] MEDS: AZITHROMYCIN 250 MG TAB PO SCH (09:24)
[2018-10-19] MEDS: SALMETEROL XINAFOATE 50MCG 28 BLISTER INH INH SCH (09:28)
[2018-10-19] MEDS: LISINOPRIL 20 MG TAB PO SCH (09:28)
[2018-10-19] MEDS: FLUTICASONE PROPIONATE NA SPR 16 GM BTL SCH (09:29)
[2018-10-19] MEDS: PANTOprazole 40 MG TAB PO SCH (09:29)
[2018-10-19] MEDS: NICOTINE 21 MG/24 HR TDSY TD SCH (09:29)
[2018-10-19] MEDS: FOLIC ACID 1 MG TAB PO SCH (09:31)
[2018-10-19] MEDS: INSULIN GLARGINE SOLOSTAR 100 UNITS/ML 3 ML PEN SC SCH ×2 (09:35→20:46)
[2018-10-19] MEDS: ENOXAPARIN INJ 40 MG/0.4 ML SYR SQ SCH (09:36)
--- NOTE | 2018-10-19 11:17 | Critical Care Progress Note ---
Date of Service October 19, 2018 Assessment & Plan (1) COPD exacerbation: Impression: 1. COPD with exacerbation, gold level 4, grade C. 2. Cor pulmonale. 3. Chronic narcotic addiction. 4. Acute on chronic hypercapnic and hypoxic respiratory failure. 5. Hypertension, mainly related to peripheral arterial disease given his smoking history. 6. Active nicotine addiction. Plan: 1. Continue oxygen at 3 L/min, keep O2 sat 85 to 90%. 2. Decrease Solu-Medrol to 40 mg IV every 6 hours. 3. Aggressive management of the blood pressure including lisinopril 20 mg p.o. daily and hydralazine 50 mg p.o. 3 times daily. 4. Change hydralazine IV to 20 mg every 4 hours as needed for systolic blood pressure more than 160. 5. Highly recommended to place the patient at pulmonary rehab. Long discussion took place with him and his and they both are in agreement. 6. Transfer the patient to regular floor. 7. Continue DVT and GI prophylaxis. 8. Core measures for the ICU has been met. 9. Glucose control. 10. Due to his poor lung reserve, I will change his long-acting beta agonist to a nebulized form rather than MDI. 11. Discussed with the staff on rounds and details. Critical care time spent with the patient was 45 minutes. Subjective The patient continues to complain of back pain, appears to be more subjective than objective, the patient is tolerating the pain even with 10 mg of Percocet, denies any increased shortness of breath, no signs of withdrawal, minimal tremor, blood pressure remains on the high side. Otherwise no events overnight. Review of Systems Review of Systems: Review of system otherwise was unremarkable. Physical Exam Physical Exam: Blood pressure remains elevated. O2 saturation has been between 85 to 90% which is at goal, the patient has injected conjunctiva, part of his cor pulmonale and polycythemia, no JVD, hyperinflated chest, S1-S2 regular atrial rhythm, distant breath sounds bilaterally, abdomen is benign, no edema, cachexia. Neurologically the patient appears to be nonfocal, continues to complain of back pain which seems to be exaggerated. Results & Data Vital Signs (Past 12 Hours) Vital Signs Temp Pulse Pulse Pulse Resp BP Pulse Ox 10/19/18 07:08 98 H 18 89 L 10/19/18 07:03 104 H 18 154/97 H 94 10/19/18 04:01 36.8 C 101 H 26 H 141/107 H 86 L 10/19/18 03:14 98 H 18 92 10/19/18 03:00 103 H 19 169/109 H 89 L 10/19/18 02:00 105 H 29 H 154/97 H 85 L 10/19/18 01:00 103 H 21 152/96 H 88 L 10/19/18 00:01 37.1 C 101 H 22 150/91 H 90 10/19/18 00:00 89 Laboratory Results Labs were reviewed which showed normal CBC, he does have chronic hyponatremia, hypokalemia noted and hypophosphatemia. Diagnostic Findings Chest x-ray was poor quality but showed hyperinflated lungs.
[2018-10-19] MEDS: methylPREDNISolone 40 MG in SYRINGE 0 ML IV SCH ×3 (13:38→20:51)
--- NOTE | 2018-10-19 18:43 | Hospitalist Progress Note ---
Date of Service October 19, 2018 Assessment & Plan (1) Acute on chronic respiratory failure with hypoxia and hypercapnia: (2) Respiratory acidosis: (3) COPD exacerbation: (4) PNA (pneumonia): Present on admission with worsening SOB associated with cough CT chest showed no superimposed infiltrate to suggest pneumonia. CXR showed findings suggest superimposed diffuse infiltrate on a background of chronic lung disease, likely emphysema. Negative for influenza PCR ABG on admission showed pH 7.31 and PCO2 76 Received Vanco, Zosyn and Doxycycline Continue Zithromax Solumedrol taper to 40mg Q6H Continue Pulmonary toilet with nebulizers, incentive spirometry ECHO showed no LV wall motion abnormality with EF 55-60% Continue monitor (5) Chronic back pain: Pain improves Continue oxycodone/hydrocodone Will hold for any drowsiness (6) Altered mental status: Metabolic Encephalopathy Due to CO2 retention in combination with opiod Clinically stable (7) Chronic hyponatremia: Stable monitor bmp (8) Hyperlipidemia: Continue lipitor (9) Tobacco use disorder: Counseling on smoking cessation On nicotine patch Hypokalemia K 3.4 K replaced (10) DVT prophylaxis: Lovenox Disposition: Continue monitor in ICU Subjective Pt was seen and examined Lying in bed with no distress Pt said that his breathing feels much better Pt looks more awake today He said that he feels weak today Denies any chest pain, palpitation and fever Physical Exam Physical Exam: General- No acute distress Head- atraumatic Eyes- PERRL, EOMI, ENT- oropharynx clear Neck- supple, no JVD Lungs- clear to auscultation Heart- regular rhythm; no murmur Abdomen- normal bowel sounds, soft, nontender Extremities- no calf tenderness Neuro- alert, oriented, PERRL, EOMI; no facial palsy; no dysarthria Skin- warm & dry Results & Data Vital Signs (Past 12 Hours) Vital Signs Temp Pulse Pulse Pulse Resp BP Pulse Ox 10/19/18 18:01 98 H 22 100 10/19/18 18:00 97 H 24 151/92 H 98 10/19/18 17:00 106 H 22 122/71 88 L 10/19/18 16:00 87 18 156/94 H 90 10/19/18 15:16 100 H 18 92 10/19/18 15:00 92 H 23 94 10/19/18 14:52 10/19/18 14:00 114 H 20 88 L 10/19/18 13:34 165/104 H 89 L 10/19/18 13:31 125/103 H 87 L 10/19/18 13:00 104 H 25 H 138/99 87 L 10/19/18 12:00 110 H 24 137/83 88 L 10/19/18 11:47 105 H 20 88 L 10/19/18 11:00 109 H 23 143/90 H 89 L 10/19/18 10:00 110 H 24 139/89 88 L 10/19/18 09:00 36.6 C 109 H 23 152/99 H 86 L 10/19/18 08:00 108 H 16 158/103 H 88 L 10/19/18 07:08 98 H 18 89 L 10/19/18 07:04 104 H 26 H 88 L 10/19/18 07:03 104 H 18 154/97 H 94 Pulse Ox 10/19/18 18:01 10/19/18 18:00 10/19/18 17:00 10/19/18 16:00 10/19/18 15:16 10/19/18 15:00 10/19/18 14:52 89 L 10/19/18 14:00 10/19/18 13:34 10/19/18 13:31 10/19/18 13:00 10/19/18 12:00 10/19/18 11:47 10/19/18 11:00 10/19/18 10:00 10/19/18 09:00 10/19/18 08:00 10/19/18 07:08 10/19/18 07:04 10/19/18 07:03
[2018-10-19] MEDS: ARFORMOTEROL TART 15MCG/2ML VIAL INH SCH (20:04)
[2018-10-19] MEDS: BUDESONIDE 0.5 MG/2 ML VIAL (PULMICORT) NEB SCH (20:04)
[2018-10-19] MEDS: ATORVASTATIN 20 MG TAB PO SCH (20:51)
[2018-10-19] MEDS: HydrALAZINE HCL 20 MG/ML VIAL IV PRN (23:12)
[2018-10-20] MEDS: ALBUT/IPRATROP 3MG/0.5MG NEB 3 ML VIAL NEB SCH ×6 (03:36→22:58)
[2018-10-20] MEDS: INSULIN ASPART 100 UNITS/ML 3 ML PEN SC SCH ×5 (04:08→21:18)
[2018-10-20] MEDS: methylPREDNISolone 40 MG in SYRINGE 0 ML IV SCH ×4 (04:09→21:26)
[2018-10-20] MEDS: OXYCODONE/ACETAMINOPHEN 10-325 TAB PO PRN ×5 (04:12→20:26)
[2018-10-20 04:48] LABS: Hematocrit (blood only) 42.8 % (42-52); Hemoglobin 14.6 g/dL (14.0-18.0); Immature Granulocytes # (auto) 0.03 K/uL (0.00-0.02); Immature Granulocytes % (auto) 0.5 %; Lymphocytes # (auto) 0.58 K/uL (1.2-3.4); Mean Corpuscular Hgb Conc 34.1 g/dL (32-36); Mean Corpuscular Volume 91.3 fL (80-100); Mean Platelet Volume 9.6 fL (7.4-10.4); Monocytes # (auto) 0.25 K/uL (0.11-0.59); Monocytes % (auto) 4.3 %; Neutrophils # (auto) 4.95 K/uL (1.4-6.5); Neutrophils % (auto) 85.2 %; Platelet Count 160 K/uL (130-400); RDW Coefficient of Variation 14.7 % (11.5-14.5); RDW Standard Deviation 48.4 fL (36.4-46.3); Red Blood Count 4.69 M/uL (4.7-6.1); White Blood Count 5.81 K/uL (4.8-10.8)
[2018-10-20 05:07] LABS: BUN Creatinine Ratio 25.8 (10-20); Calcium 9.5 mg/dl (8.5-10.1); Creatinine Clr Calc Pharmacy 118.4 ml/min; Est GFR (African American) 123.4; Est GFR (Non-African American) 106.5; Magnesium 1.9 mg/dl (1.8-2.4); Potassium 3.6 mmol/L (3.5-5.1)
[2018-10-20] MEDS: HydrALAZINE HCL 20 MG/ML VIAL IV PRN ×3 (05:10→23:45)
[2018-10-20 05:18] LABS: Phosphorus 3.1 mg/dl (2.5-4.9)
[2018-10-20] MEDS: ARFORMOTEROL TART 15MCG/2ML VIAL INH SCH ×2 (07:05→19:09)
[2018-10-20] MEDS: BUDESONIDE 0.5 MG/2 ML VIAL (PULMICORT) NEB SCH ×2 (07:05→19:08)
--- NOTE | 2018-10-20 07:06 | XRay Report ---
XR chest 1V portable CLINICAL HISTORY: Follow-up examination patient with emphysema and respiratory failure COMPARISON STUDY: 10/19/2018 FINDINGS: The heart is borderline enlarged. There is radiographic evidence of bullous emphysema. Ther e is interstitial thickening, similar to prior studies. There is no lobar consolidation.[ There are n o significant pleural effusions. IMPRESSION: Bullous emphysema with stable chronic interstitial thickening. No evidence of acute paren chymal consolidation Electronically signed by: Luisito King M.D. 10/20/2018 7:04 AM
[2018-10-20] MEDS: FLUTICASONE PROPIONATE NA SPR 16 GM BTL SCH (07:55)
[2018-10-20] MEDS: PANTOprazole 40 MG TAB PO SCH (07:55)
[2018-10-20] MEDS: FOLIC ACID 1 MG TAB PO SCH (07:55)
[2018-10-20] MEDS: AZITHROMYCIN 250 MG TAB PO SCH (07:55)
[2018-10-20] MEDS: LISINOPRIL 20 MG TAB PO SCH (07:56)
[2018-10-20] MEDS: ENOXAPARIN INJ 40 MG/0.4 ML SYR SQ SCH (07:56)
[2018-10-20] MEDS: HydrALAZINE TAB 50 MG TAB PO SCH ×3 (07:56→20:27)
[2018-10-20] MEDS: NICOTINE 21 MG/24 HR TDSY TD SCH (07:57)
[2018-10-20] MEDS ORDERED: INSULIN GLARGINE SOLOSTAR 100 UNITS/ML 3 ML PEN SC ONE ×2 (09:00→09:30)
[2018-10-20] MEDS ORDERED: cloNIDine HCl 0.1 MG TAB PO PRN (11:38)
--- NOTE | 2018-10-20 13:39 | Pharmacy Report ---
Pharmacy Glycemic Short Note 2 - Date of Service October 20, 2018 - Glycemic Short BSG Results (Last 24 hours): 10/19/18 10/19/18 10/19/18 16:53 20:42 23:19 Glucose POC Glucose 138 H 121 H 128 H 10/20/18 10/20/18 10/20/18 04:08 04:33 07:27 Glucose 118 H POC Glucose 110 H 111 H 10/20/18 11:24 Glucose POC Glucose 102 H OUTPATIENT ANTIDIABETIC REGIMEN: * n/a * A1c = 6.5% (within diabetic range) ASSESSMENT: 10/20 * Mr. Saunders has received very little insulin, even while on IV steroids (currently on Solu-medrol 40 mg q6h) * PO intake remains minimal * He received 7 units of basal insulin yesterday with fasting of 118 mg/dL this AM. Will plan to continue the same but continue the scale for tonight should his po intake improve and BSGs increase. He has required very little Novolog due to poor po intake. * Patient admitted for COPD exac / PNA * Currently receiving high-dose IV steroids and abx therapy * Glycemic control is acceptable at this time despite current stressors * His diet is currently clears, and once this advances his glycemic control may deteriorate * Will base initial insulin orders upon weight: basal dose based upon mild stress given lack of significant rise in BSGs, rapid acting doses based upon moderate stress level. I am hesistant to give large prandial insulin doses given current BSG pattern. PLAN FOR INPATIENT GLYCEMIC CONTROL: * Basal insulin * Lantus 7 units qAM * Lantus qPM based on the following scale: 0 for BSG < 160 5 units for BSG 160 or greater * Bolus insulin - CF loosened this AM, will continue the same * NovoLog per scale ACHS * Goal Range: Low 120 mg/dL - High 150 mg/dL * Correction Factor: 35 mg/dL/unit * Nutritional / Prandial insulin per carb ratio of 1 unit per 15 grams CHO consumed PLAN FOR DISCHARGE: * ADA recommendations would be for lifestyle modifications +/- metformin, especially since metformin has been shown to prevent further progression of diabetes
--- NOTE | 2018-10-20 15:27 | Pulmonology Progress Note ---
Date of Service October 20, 2018 Assessment & Plan (1) COPD exacerbation: Impression: 1. COPD with exacerbation, gold level 4, grade C. 2. Cor pulmonale. 3. Chronic narcotic addiction. 4. Acute on chronic hypercapnic and hypoxic respiratory failure. 5. Hypertension, mainly related to peripheral arterial disease given his smoking history. 6. Active nicotine addiction. Plan: 1. Continue oxygen at 3 L/min, keep O2 sat 85 to 90%. 2. Decrease Solu-Medrol to 40 mg IV every 6 hours. 3. Continue blood pressure management with lisinopril 20 mg and hydralazine 50 mg p.o. 3 times daily 4. Change hydralazine IV to 10 mg every 4 hours as needed for systolic blood pressure more than 160. 5. Highly recommended to place the patient at pulmonary rehab. Discussed with the patient and his daughter at the bedside, both are in agreement. 6. Transfer the patient to regular floor. 7. Continue DVT and GI prophylaxis. 8. Continue with Brovana and Pulmicort twice daily. The patient is better using nebulized form than MDI. 9. Glucose control. 10. OT PT consult. 11. KCl replacement. Phosphorus replacement. 12. Change azithromycin to p.o. for 5 days total. Discussed with the staff on rounds in details, critical care time spent with the patient was 45 minutes. Subjective No events overnight, the patient continued to be stable, his O2 saturation has been maintained around 90% with nasal cannula, no chest pain, he continues to complain of back pain, but he is well managed with Percocet only. He continues to use his bronchodilators. Review of Systems Review of Systems: No chest pain, no cough or sputum production, no hemoptysis, no abdominal pain, only back pain which has been chronic, no increased swelling in his lower extremities, denies any visual disturbances, no insomnia and no rash. Rest of his review of system including 14 systems was unremarkable. Physical Exam Physical Exam: Vital signs are stable, S1-S2, conjunctiva, lungs with distant breath sounds, hyperinflated chest, abdomen is benign, no edema, neurologically is intact. Poor dental hygiene. Results & Data Vital Signs (Past 12 Hours) Vital Signs Temp Pulse Pulse Pulse Resp BP BP 10/20/18 14:53 36.4 C L 108 H 20 164/99 H 10/20/18 11:51 36.8 C 102 H 20 182/108 H 10/20/18 11:45 102 H 20 10/20/18 10:47 106 H 10/20/18 10:46 36.5 C 108 H 22 163/108 H 10/20/18 10:01 116 H 23 156/84 H 10/20/18 09:30 110 H 23 150/93 H 10/20/18 08:30 115 H 21 141/107 H 10/20/18 08:07 115 H 17 175/101 H 10/20/18 08:01 106 H 18 10/20/18 08:00 36.9 C 113 H 24 175/107 H 10/20/18 07:20 113 H 22 160/99 H 10/20/18 07:16 112 H 10/20/18 07:09 114 H 20 10/20/18 07:01 117 H 18 181/107 H 10/20/18 06:05 113 H 21 167/97 H 10/20/18 06:01 112 H 24 10/20/18 05:06 110 H 19 171/108 H 10/20/18 05:00 110 H 26 H 195/118 H 10/20/18 04:11 108 H 49 H 151/98 H 10/20/18 04:00 133 H 35 H 151/98 H 10/20/18 03:36 106 H 20 Pulse Ox 10/20/18 14:53 90 10/20/18 11:51 91 10/20/18 11:45 91 10/20/18 10:47 10/20/18 10:46 88 L 10/20/18 10:01 85 L 10/20/18 09:30 87 L 10/20/18 08:30 89 L 10/20/18 08:07 88 L 10/20/18 08:01 87 L 10/20/18 08:00 87 L 10/20/18 07:20 88 L 10/20/18 07:16 10/20/18 07:09 88 L 10/20/18 07:01 88 L 10/20/18 06:05 87 L 10/20/18 06:01 88 L 10/20/18 05:06 89 L 10/20/18 05:00 84 L 10/20/18 04:11 88 L 10/20/18 04:00 87 L 10/20/18 03:36 90 Laboratory Results Labs were reviewed, CBC and BMP are acceptable. Glucose is controlled. Diagnostic Findings Chest x-ray unchanged from previous, consistent with significant emphysema and hyperinflated chest.
--- NOTE | 2018-10-20 19:28 | Hospitalist Progress Note ---
Date of Service October 20, 2018 Assessment & Plan (1) Acute on chronic respiratory failure with hypoxia and hypercapnia: (2) Respiratory acidosis: (3) COPD exacerbation: (4) PNA (pneumonia): Present on admission with worsening SOB associated with cough CT chest showed no superimposed infiltrate to suggest pneumonia. CXR showed findings suggest superimposed diffuse infiltrate on a background of chronic lung disease, likely emphysema. Negative for influenza PCR ABG on admission showed pH 7.31 and PCO2 76 Received Vanco, Zosyn and Doxycycline Continue Zithromax for 5 days taper Solumedrol to 40mg Q12H Continue Pulmonary toilet with nebulizers, incentive spirometry ECHO showed no LV wall motion abnormality with EF 55-60% Continue monitor (5) Chronic back pain: Pain improves Continue oxycodone/hydrocodone Will hold for any drowsiness (6) Altered mental status: Metabolic Encephalopathy Due to CO2 retention in combination with opiod Clinically stable (7) Chronic hyponatremia: Stable monitor bmp (8) Hyperlipidemia: Continue lipitor (9) Tobacco use disorder: Counseling on smoking cessation On nicotine patch Weakness OT recommended rehab Pt refused rehab Fall precaution Continue PT/OT Hypokalemia K 3.6 stable (10) DVT prophylaxis: Lovenox Disposition: Will discharge once medically stable Subjective Pt was seen and examined Lying in bed with no distress Pt said that breathing improves he said that he feels weak He does not want to go to rehab Denies any chest pain, palpitation and fever Physical Exam Physical Exam: General- No acute distress Head- atraumatic Eyes- PERRL, EOMI, ENT- oropharynx clear Neck- supple, no JVD Lungs- clear to auscultation Heart- regular rhythm; no murmur Abdomen- normal bowel sounds, soft, nontender Extremities- no calf tenderness Neuro- alert, oriented, PERRL, EOMI; no facial palsy; no dysarthria Skin- warm & dry Results & Data Vital Signs (Past 12 Hours) Vital Signs Temp Pulse Pulse Pulse Resp BP BP 10/20/18 18:55 107 H 10/20/18 15:46 112 H 10/20/18 15:32 108 H 20 10/20/18 14:53 36.4 C L 108 H 20 164/99 H 10/20/18 11:51 36.8 C 102 H 20 182/108 H 10/20/18 11:45 102 H 20 10/20/18 10:47 106 H 10/20/18 10:46 36.5 C 108 H 22 163/108 H 10/20/18 10:01 116 H 23 156/84 H 10/20/18 09:30 110 H 23 150/93 H 10/20/18 08:30 115 H 21 141/107 H 10/20/18 08:07 115 H 17 175/101 H 10/20/18 08:01 106 H 18 10/20/18 08:00 36.9 C 113 H 24 175/107 H Pulse Ox 10/20/18 18:55 10/20/18 15:46 10/20/18 15:32 89 L 10/20/18 14:53 90 10/20/18 11:51 91 10/20/18 11:45 91 10/20/18 10:47 10/20/18 10:46 88 L 10/20/18 10:01 85 L 10/20/18 09:30 87 L 10/20/18 08:30 89 L 10/20/18 08:07 88 L 10/20/18 08:01 87 L 10/20/18 08:00 87 L
[2018-10-20] MEDS: ATORVASTATIN 20 MG TAB PO SCH (20:27)
[2018-10-20] MEDS ORDERED: INSULIN GLARGINE SOLOSTAR 100 UNITS/ML 3 ML PEN SC SCH (21:00)
[2018-10-21] MEDS: OXYCODONE/ACETAMINOPHEN 10-325 TAB PO PRN ×5 (00:26→16:15)
[2018-10-21] MEDS: methylPREDNISolone 40 MG in SYRINGE 0 ML IV SCH ×2 (03:13→08:39)
[2018-10-21] MEDS: ALBUT/IPRATROP 3MG/0.5MG NEB 3 ML VIAL NEB SCH ×4 (03:18→15:01)
[2018-10-21] MEDS: BUDESONIDE 0.5 MG/2 ML VIAL (PULMICORT) NEB SCH (07:32)
[2018-10-21] MEDS: ARFORMOTEROL TART 15MCG/2ML VIAL INH SCH (07:32)
[2018-10-21] MEDS: HydrALAZINE HCL 20 MG/ML VIAL IV PRN (07:41)
[2018-10-21] MEDS: LISINOPRIL 20 MG TAB PO SCH (08:36)
[2018-10-21] MEDS: INSULIN ASPART 100 UNITS/ML 3 ML PEN SC SCH ×2 (08:36→12:40)
[2018-10-21] MEDS: NICOTINE 21 MG/24 HR TDSY TD SCH (08:37)
[2018-10-21] MEDS: ENOXAPARIN INJ 40 MG/0.4 ML SYR SQ SCH (08:37)
[2018-10-21] MEDS: FOLIC ACID 1 MG TAB PO SCH (08:37)
[2018-10-21] MEDS: PANTOprazole 40 MG TAB PO SCH (08:37)
[2018-10-21] MEDS: HydrALAZINE TAB 50 MG TAB PO SCH ×2 (08:38→14:22)
[2018-10-21] MEDS: AZITHROMYCIN 250 MG TAB PO SCH (08:39)
[2018-10-21] MEDS: FLUTICASONE PROPIONATE NA SPR 16 GM BTL SCH (08:39)
[2018-10-21] MEDS ORDERED: INSULIN GLARGINE SOLOSTAR 100 UNITS/ML 3 ML PEN SC SCH (09:00)
--- NOTE | 2018-10-21 13:46 | Pulmonology Progress Note ---
Date of Service October 21, 2018 Assessment & Plan (1) COPD exacerbation: Impression: 1. COPD with exacerbation, gold level 4, grade C. 2. Cor pulmonale. 3. Chronic narcotic addiction. 4. Acute on chronic hypercapnic and hypoxic respiratory failure. 5. Hypertension, mainly related to peripheral arterial disease given his smoking history. 6. Active nicotine addiction. Plan: 1. Continue oxygen at 3 L/min, keep O2 sat 85 to 90%. 2. Change Solu-Medrol to prednisone 40 mg p.o. twice daily for 5 days then taper by 10 mg per dose every third day. 3. Continue blood pressure management with lisinopril 20 mg and hydralazine 50 mg p.o. 3 times daily 4. May discontinue hydralazine IV as needed. 5. Highly recommended to place the patient at pulmonary rehab. The patient in discussion with him and his daughter at the bedside, he was adamant that he was to go home and does not want pulmonary rehab. 6. Continue with Brovana and Pulmicort twice daily, instead of MDIs. The patient is at end-stage COPD and likely he will not be able to breathe through FRC but rather he will breathe through the tidal volume. 7. Continue DVT and GI prophylaxis. 8. Patient can be discharged to rehab preferably or to home after trending pulse oximetry. 9. Glucose control. 10. OT PT eval. 11. Pulmonary follow-up as an outpatient. 12. Change azithromycin to p.o. for 5 days total. 13. Absolutely no cigarette smoking, patient instructed and counseled. Discussed with the staff on rounds in details, Thank you, will follow as needed. Subjective The patient clinically is improving, however he had insomnia with use of interrupted sleep from multiple testing overnight, the patient denies any chest pain, he has not been able to Tory enough to evaluate his respiratory status with exertion. Denies any cough or sputum production. His pain is well controlled with 10 mg of Percocet as needed every 4 hours. He denies any nausea or vomiting, no change in bowel movements, otherwise no events overnight, he wants to go home and he declined pulmonary rehab placement. Review of Systems Review of Systems: Review of system apart from the above was unremarkable including 14 systems. Physical Exam Physical Exam: Vital signs are stable, no fever, O2 sat 90% on nasal cannula, S1-S2, regular rate and rhythm, distant breath sounds but clear, abdomen is benign, no edema, neurologically he is anxious but nonfocal, injected conjunctiva, cachexia overall noted. Results & Data Vital Signs (Past 12 Hours) Vital Signs Temp Pulse Pulse Pulse Resp BP BP 10/21/18 12:00 36.2 C L 107 H 22 143/81 H 10/21/18 11:08 114 H 20 10/21/18 08:34 118 H 160/95 H 10/21/18 07:32 103 H 18 10/21/18 07:28 100 H 10/21/18 07:14 36.7 C 103 H 20 180/114 H 186/105 H 10/21/18 03:28 36.9 C 107 H 18 175/95 H 10/21/18 03:18 103 H 16 Pulse Ox 10/21/18 12:00 90 10/21/18 11:08 92 10/21/18 08:34 10/21/18 07:32 90 10/21/18 07:28 10/21/18 07:14 91 10/21/18 03:28 92 10/21/18 03:18 93 Laboratory Results No new labs, glucose is well controlled. Diagnostic Findings No new imaging.
--- NOTE | 2018-10-21 13:53 | Pharmacy Report ---
Pharmacy Glycemic Short Note 2 - Date of Service October 21, 2018 - Glycemic Short BSG Results (Last 24 hours): 10/20/18 10/20/18 10/21/18 16:52 20:16 07:54 POC Glucose 120 H 111 H 119 H 10/21/18 11:27 POC Glucose 116 H OUTPATIENT ANTIDIABETIC REGIMEN: * n/a * A1c = 6.5% (within diabetic range) ASSESSMENT: 10/21 * BSGs have been well controlled. Patient received 8 units of insulin yesterday (7 of this was basal) * PO intake remains poor * Steroids have been tapered to prednisone 40 mg BID so I anticipate reduced basal doses, unless po intake would improve significantly 10/20 * Mr. Saunders has received very little insulin, even while on IV steroids (currently on Solu-medrol 40 mg q6h) * PO intake remains minimal * He received 7 units of basal insulin yesterday with fasting of 118 mg/dL this AM. Will plan to continue the same but continue the scale for tonight should his po intake improve and BSGs increase. He has required very little Novolog due to poor po intake. * Patient admitted for COPD exac / PNA * Currently receiving high-dose IV steroids and abx therapy * Glycemic control is acceptable at this time despite current stressors * His diet is currently clears, and once this advances his glycemic control may deteriorate * Will base initial insulin orders upon weight: basal dose based upon mild stress given lack of significant rise in BSGs, rapid acting doses based upon moderate stress level. I am hesistant to give large prandial insulin doses given current BSG pattern. PLAN FOR INPATIENT GLYCEMIC CONTROL: * Basal insulin - remove PM dose * Lantus 7 units qAM (placed on hold for 10/22 AM to allow for BSG evaluation) * Bolus insulin - no change * NovoLog per scale ACHS * Goal Range: Low 120 mg/dL - High 150 mg/dL * Correction Factor: 35 mg/dL/unit * Nutritional / Prandial insulin per carb ratio of 1 unit per 15 grams CHO consumed PLAN FOR DISCHARGE: * ADA recommendations would be for lifestyle modifications +/- metformin, especially since metformin has been shown to prevent further progression of diabetes
--- NOTE | 2018-10-21 15:27 | Hospitalist Progress Note ---
Date of Service October 21, 2018 Assessment & Plan (1) Acute on chronic respiratory failure with hypoxia and hypercapnia: (2) Respiratory acidosis: (3) COPD exacerbation: (4) PNA (pneumonia): Present on admission with worsening SOB associated with cough CT chest showed no superimposed infiltrate to suggest pneumonia. CXR showed findings suggest superimposed diffuse infiltrate on a background of chronic lung disease, likely emphysema. Negative for influenza PCR ABG on admission showed pH 7.31 and PCO2 76 Received Vanco, Zosyn and Doxycycline Continue Zithromax to complete 5 days course Continue with Brovana and Pulmicort twice daily, instead of MDIs as per registered medical assistant Solumedrol change to prednisone 40mg twice daily for 5 days then taper by 10 mg per dose every third day. Continue Pulmonary toilet with nebulizers, incentive spirometry Pulmonology recommended pulmonary rehab, but patient refused to go to any rehab Case discussed with with patient permission said that the family spoke to him and he would not go to rehab ECHO showed no LV wall motion abnormality with EF 55-60% Continue oxygen supplement Continue monitor (5) Chronic back pain: Pain improves Continue oxycodone/hydrocodone Will hold for any drowsiness (6) Altered mental status: Metabolic Encephalopathy Due to CO2 retention in combination with opiod Clinically stable (7) Chronic hyponatremia: Stable monitor bmp (8) Hyperlipidemia: Continue lipitor (9) Tobacco use disorder: Counseling on smoking cessation On nicotine patch Weakness OT recommended rehab Pt refused rehab agreed with home health with PT/OT pillowcase cleaner was notified and will talk to patient before placing referral Fall precaution Continue PT/OT Hypokalemia K 3.6 stable (10) DVT prophylaxis: Lovenox Disposition: Will discharge home today Subjective Pt was seen and examined Lying in bed with no distress Pt said that he feels like his back to his baseline He is very anxious to go home today OT worked with him and recommended inpatient rehab He walked with PT and did good He refused to go for pulmonary rehab With his permission I called the and updated him said that the family spoke to him and he would not go to rehab But was ok with home health Denies any chest pain, palpitation, dizziness and fever Physical Exam Physical Exam: General- No acute distress Head- atraumatic Eyes- PERRL, EOMI, ENT- oropharynx clear Neck- supple, no JVD Lungs- Diminished BS Heart- regular rhythm; no murmur Abdomen- normal bowel sounds, soft, nontender Extremities- no calf tenderness Neuro- alert, oriented, PERRL, EOMI; no facial palsy; no dysarthria Skin- warm & dry Results & Data Vital Signs (Past 12 Hours) Vital Signs Temp Pulse Pulse Pulse Resp BP BP 10/21/18 15:04 106 H 22 144/83 H 10/21/18 15:01 83 18 10/21/18 14:49 10/21/18 12:00 36.2 C L 107 H 22 143/81 H 10/21/18 11:08 114 H 20 10/21/18 08:34 118 H 160/95 H 10/21/18 07:32 103 H 18 10/21/18 07:28 100 H 10/21/18 07:14 36.7 C 103 H 20 180/114 H 186/105 H 10/21/18 03:28 36.9 C 107 H 18 175/95 H 10/21/18 03:18 103 H 16 Pulse Ox 10/21/18 15:04 94 10/21/18 15:01 91 10/21/18 14:49 88 L 10/21/18 12:00 90 10/21/18 11:08 92 10/21/18 08:34 10/21/18 07:32 90 10/21/18 07:28 10/21/18 07:14 91 10/21/18 03:28 92 10/21/18 03:18 93
[2018-10-21] MEDS ORDERED: predniSONE 20 MG TAB PO SCH (21:00)
--- OUTSIDE RECORDS SUMMARY | 2018-10-24 15:40 | External Medical Summary | Continuity of Care Document ---
:1960 Author Name Belkys Elmore, Provider Address Unavailable Unavailable , Care Team Providers Name Role Phone Po Freed M.D. Unavailable [email or web address] Ferguson [email or web address]-C Unavailable [email or web address] Grant ANDINO Unavailable Unavailable Unavailable Unavailable Unavailable Problems Degeneration of cervical intervertebral disc (722.4) (M50.30 ) Current smoker (305.1) (F17.200) Acute bronchitis, unspecified organism (466.0) (J20.9) Hypoxia (799.02) (R09.02) Chronic obstructive pulmonary disease (496) (J44.9) COPD exacerbation (491.21) (J44.1) Shortness of breath (786.05) (R06.02) Gastroesophageal reflux disease without esophagitis (530.81) (K21.9) Rhinitis (472.0) (J31.0) Acquired deviated nasal septum (470) (J34.2) Allergies and Adverse Reactions No Known Drug Allergies (Allergy) Medications ProAir HFA 108 (90 Base) MCG/ACT Inhalat ion Aerosol Solution; INHALE 2 PUFFS Every 4 hours PRN Refills: 0 Atorvastatin Calcium 20 MG Oral Tablet; TAKE 1 TABLET DAILY DIRECTED. Refills: 0 Vitamin D 1000 UNIT Oral Tablet; TAKE 1 TABLET DAILY. Refills: 0 Omeprazole 20 MG Oral Capsule Delayed Re lease; TAKE 1 CAPSULE DAILY EVERY MORNING BEFORE BREAKFAST. TRISTAN Ferguson Start: 17-Jun-2018 Quantity: 30 Refills: 5 [place] Nasal [place] SOLN Refills: 0 Ipratropium-Albuterol 0.5-2.5 (3) MG/3ML Inhalation Solution; INHALE 1 VIAL VIA NEBULIZER EVERY 6 HOURS NEEDED TRISTAN Ferguson Start: 01-Feb-2018 Quantity: 1 60 x 3 ML Plas Cont Refills: 1 Spiriva HandiHaler 18 MCG Inhalation Cap keya; INHALE THE CONTENTS OF ONE CAPSULE DAILY USING HANDIHALER. DO NOTSWALLOW CAPSULE Ramírez Freed Start: 08-Dec-2011 Quantity: 30 Refills: 11 Potassium Chloride ER 10 MEQ Oral Capsul e Extended Release; TAKE 1 CAPSULE DAILY. Ramírez Freed Quantity: 30 Refills: 11 oxyCODONE HCl TABS; TAKE 1 TABLET EVERY 4 HOURS NEEDED FO R PAIN. Refills: 0 Percocet 10-325 MG Oral Tablet; TAKE 1 TABLET 4 TIMES DAILY NEEDED FOR PAIN. Refills: 0 Clobetasol Propionate 0.05 % External Ge l; APPLY AND GENTLY MASSAGE INTO AFFECTED AREA(S) TWICE DAILY. Refills: 0 Furosemide 20 MG Oral Tablet; One tablet daily as need ed for edema TRISTAN Ferguson Quantity: 30 Refills: 5 Symbicort 160-4.5 MCG/ACT Inhalation Aer osol; INHALE 2 PUFFS TWICE DAILY. RINSE MOUTH AFTER USE. TRISTAN Ferguson Start: 02-Jun-2018 Quantity: 1 10.2 GM Inhaler Refills: 3 Fluticasone Propionate 50 MCG/ACT Nasal Suspension; USE 2 SPRAYS IN EACH NOSTRIL ONCE DAILY TRISTAN Ferguson Start: 27-Aug-2017 Quantity: 1 16 GM Bottle Refills: 3 predniSONE 10 MG Oral Tablet; TAKE 4 TAB S PO X4 DAYS, 3 TABS PO X4 DAYS, 2 TABS PO X4 DAYS, AND 1 TAB PO X4 DAYS. TRISTAN Ferguson Start: 16-Jul-2017 E nd: Quantity: 40 30-Oct-2018 Refills: 0 Procedures Procedures not documented Immunizations Fluzone INJ On: 01-Apr-2015 15:31 Lot #: [id number], [employer] Family History Unknown Family Member Family history of Chronic Obstructive Status: Active Co mments: Family History Pulmonary Disease Family history of Alpha 1-antitrypsin Status: Active Co mments: Family History Deficiency Social History - Smoking Status Former smoker Smoker. current status unknown Plan of Treatment Planned Encounters Appointment; Lorna Ferguson PA-C Start: 27-Oct-2018 13:[address] Planned Observations Planned Goals not documented Results No Known Results Results not documented Vital Signs 17-Oct-2018 15:37 Systolic 138 mm[Hg] Diastolic 84 mm[Hg] Weight 163 lb BMI Calculated 23.06 kg/m2 BSA Calculated 1.92 m2 Heart Rate 110 /min Respiration 20 /min O2 Saturation 79 % Comments: Source: RA FiO2 1.5 L/min Encounters Appointment; Lorna Ferguson PA-C 17-Oct-2018 15:30 Encounter Diagnosis: Problem not documented Appointment; Po Freed M.D. 15-Aug-2018 10:45 Encounter Diagnosis: Problem not documented Appointment; Lorna Ferguson PA-C 07-Jul-2018 15:00 Encounter Diagnosis: Problem not documented Appointment; Lorna Ferguson PA-C 01-Jul-2018 16:00 Encounter Diagnosis: Problem not documented Appointment; Lorna Ferguson PA-C 17-Jun-2018 10:30 Encounter Diagnosis: Problem not documented Appointment; Lorna Ferguson PA-C 09-Jun-2018 13:00 Encounter Diagnosis: Problem not documented Appointment; Lorna Ferguson PA-C 02-Jun-2018 11:30 Encounter Diagnosis: Problem not documented Appointment; Po Freed M.D. 11-Feb-2018 10:45 Encounter Diagnosis: Problem not documented Appointment; Po Freed M.D. 04-Oct-2017 9:45 Encounter Diagnosis: Problem not documented Appointment; Lorna Ferguson PA-C 03-Sep-2017 13:00 Encounter Diagnosis: Problem not documented Appointment; Lorna Ferguson PA-C 27-Aug-2017 13:00 Encounter Diagnosis: Problem not documented Appointment; Po Freed M.D. 12-Aug-2017 14:30 Encounter Diagnosis: Problem not documented Appointment; Lorna Ferguson PA-C 29-Jul-2017 13:00 Encounter Diagnosis: Problem not documented Appointment; Lorna Ferguson PA-C 16-Jul-2017 16:00 Encounter Diagnosis: Problem not documented Appointment; Lorna Ferguson PA-C 09-Jul-2017 15:00 Encounter Diagnosis: Problem not documented Appointment; Lorna Ferguson PA-C 06-Jul-2017 8:30 Encounter Diagnosis: Problem not documented Appointment; Po Freed M.D. 05-Apr-2017 11:45 Encounter Diagnosis: Problem not documented Appointment; Po Freed M.D. 16-Dec-2016 12:30 Encounter Diagnosis: Problem not documented Appointment; Po Freed M.D. 02-Dec-2016 10:00 Encounter Diagnosis: Problem not documented Appointment; Lorna Ferguson PA-C 27-Nov-2016 9:00 Encounter Diagnosis: Problem not documented Appointment; Lorna Ferguson PA-C 27-Oct-2018 13:45 Encounter Diagnosis: Problem not documented
--- NOTE | 2018-10-28 09:06 | Discharge Summary ---
Date of Service October 21, 2018 Admission HPI Per Admitting Provider This is a 58-year-old male who has a significant past medical history of severe COPD O2 dependent 2 L, opioid dependent, chronic back pain, HLD, tobacco abuse who presents to [facility] secondary to shortness of breath and cough x1 week. Patient's is at bedside. ROS slightly unreliable given patient's current cognitive state. states for the past week patient has had a productive cough, brown sputum. He is also had increasing shortness of breath requiring increasing O2 requirements. He has been fluctuating between 2 and 4 L. Symptoms worsened over the past 2 days. She called patient's air technician who prescribed doxycycline 100 mg twice daily as well as prednisone emergency pack. He has taken 2 days of doxycycline and prednisone. Patient denies any recent fever, chills, sweats, lightheadedness, dizziness, jose chest pain, hemoptysis, nausea, vomiting, diarrhea, change in bowel or urinary habits. Per appetite has been fluctuating. No known weight loss or gain. He has not been using prescribed inhalers secondary to inability to afford. He has been using nebulizer treatments at home with minimal relief. Patient does have chronic pain syndrome secondary to back pain. He takes high- dose narcotics including oxycodone 30 mg IR every 3 hours as needed along with Percocet 10-325 every 4 hours as needed pain. His last dose was approximately noon. states he has not missed dosages and does not feel he took extra medication. Denies alcohol use, quit 10 years ago. Admission Exam Per Admitting Provider Gen: WD/WN, M, agitated, moving frequently in bed, lying in hunched over position ("due to back pain," no jose resp distress, not answering questions appropriately Head: Normocephalic, Atraumatic Eyes: Sclera normal, mild b/l conjunctival injection, Pupils pinpoint but ERRLA, EOMI ENT: Gross hearing intact, normal pharynx, mucous membranes moist Neck: supple, no adenopathy, No JVD, no bruit, Resp: Decreased breath sounds throughout without wheeze, rales, rhonchi. 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 Extremities: No edema bilaterally Skin: warm, moist, no rash but dusky in nature, negative turgor, cap refill < 2sec Neuro: Alert and oriented x 3 but fluctuating mental status, speech normal but slowed, cran nerve 2-12 intact grossly : deferred Principal Diagnosis (1) Acute on chronic respiratory failure with hypoxia and hypercapnia: (2) Respiratory acidosis: (3) COPD exacerbation: (4) PNA (pneumonia): Discharge Exam General- No acute distress Head- atraumatic Eyes- PERRL, EOMI, ENT- oropharynx clear Neck- supple, no JVD Lungs- Diminished BS Heart- regular rhythm; no murmur Abdomen- normal bowel sounds, soft, nontender Extremities- no calf tenderness Neuro- alert, oriented, PERRL, EOMI; no facial palsy; no dysarthria Skin- warm & dry Discharge Data Allergies Allergy/AdvReac Type Severity Reaction Status Date / Time No Known Allergies Allergy Verified 10/17/18 20:14 Consultations 10/17/18 18:04 ED Decision to Admit Stat 10/17/18 22:20 Consult Case Management - Discharge Planning Routine Consult Pulmonology Routine Ordered Studies 10/17/18 21:04 CT chest wo con Stat CT head/brain wo con Stat 10/18/18 US gallbladder Urgent XR chest 1V portable CLINICAL HISTORY: 58 years-old Male presenting with Dyspnea. TECHNIQUE: Portable upright AP view of the chest was obtained. COMPARISON: 06/02/2018. FINDINGS: Atherosclerosis of the aortic arch. Cardiac silhouette top normal in size. Diffusely heterogeneous lung parenchyma with radiolucency of the right upper lung as on prior exam. Pulmonary vascular prominence and diffuse added density of the left lung and right lung base. This appearance has increased from prior exam. Possible underlying lung cysts or emphysematous change in the left upper lobe. Bronchial wall thickening may also be present. No large pleural effusion or gross evidence of pneumothorax allowing for the degree of radiolucency in the right upper lung. Osseous structures normal. IMPRESSION: 1. Findings suggest superimposed diffuse infiltrate on a background of chronic lung disease, likely emphysema. This could represent multifocal pneumonia or edema superimposed on emphysema. Electronically signed by: Duane Cuevas M.D. 10/17/2018 5:13 PM Dictated: 10/17/181710 Transcribed: 10/17/181710 CT chest wo con CLINICAL HISTORY: 58 years-old Male presenting with sob, copd, ?pna. TECHNIQUE: Multidetector CT imaging of the chest was performed without the use of intravenous contrast. IV contrast: None. One or more dose lowering techniques were used consistent with the principles of ALARA (as low as reasonably achievable), including automatic exposure control, mA or kV adjustment to individual patient size, and/or use of iterative reconstruction. COMPARISON: CTA chest from 08/12/2016. CT DOSE (mGy.cm): The estimated cumulative dose is 246.54 mGy.cm. 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 Soft tissues: Normal thyroid and thoracic inlet. No axillary, supraclavicular, or mediastinal lymphadenopathy. Evaluation of the zaina limited without intravenous contrast. Atherosclerosis of the aorta. Multichamber enlargement of the heart. Coronary artery calcification. No pericardial or pleural effusion. Cholelithiasis. Lungs and airways: No pneumothorax. Debris in the proximal left mainstem bronchus. Severe upper lobe predominant centrilobular emphysema. Pulmonary arteries enlarged relative to adjacent bronchi. Minimal dependent groundglass opacity likely atelectasis. Additionally, the solid subpleural nodule in the superior segment of the right lower lobe now measures 9 mm (series 4 image 184), previously 8 mm. This has been largely stable since 2012 consistent with benignity. Multiple solid nodules are noted bilaterally largely unchanged from prior. Solid slightly spiculated 6 mm nodule in the lingula is new from prior (series 4 image 222). Musculoskeletal: Normal osseous structures. IMPRESSION: 1. Severe emphysema. No superimposed infiltrate to suggest pneumonia. Scattered areas of scarring are largely similar to prior. However, a new solid 6 mm nodule is present in the lingula. The morphology and interval development of suspicious. 3-6 month follow-up CT recommended. Summary of Fleischner Society 2017 Recommendations (H Shavon et al. Guidelines for management of incidental pulmonary nodules detected on CT images: From the Fleischner Society 2017. Radiology 2017; 284: 228-243.) SOLID NODULES Single nodule; size < 6 mm * Low risk patients: No routine follow-up * High risk patients: Optional CT at 12 months Single nodule; size 6-8 mm * Low risk patients: CT at 6-12 months, then consider CT at 18-24 months * High risk patients: CT at 6-12 months, then at 18-24 months Single nodule; size > 8 mm * Either low or high risk patients: Considered CT at 3 months, PET/CT, or tissue sampling Multiple nodules; size < 6 mm * Low risk patients: No routine follow up * High risk patients: Optional CT at 12 months Multiple nodules; size 6-8 mm * Low risk patients: CT at 3-6 months, then consider CT at 18-24 months * High risk patients: CT at 3-6 months, then at 18-24 months Multiple nodules; size > 8 mm * Low risk patients: CT at 3-6 months, then consider at 18-24 months * High risk patients: CT at 3-6 months, then at 18-24 months SUBSOLID NODULES Single ground-glass nodule * Nodule size < 6 mm: No routine follow-up * Nodule size > or = 6 mm: CT at 6-12 months to confirm persistence, then CT every 2 years until 5 years Single part-solid nodule * Nodule size < 6 mm: No routine follow-up * Nodules size > or = 6 mm: CT at 3-6 months to confirm persistence. If unchanged and solid component remains < 6 mm, annual CT should be performed for 5 years Multiple nodules * Nodule size < 6 mm: CT at 3-6 months. If stable, consider CT at 2 and 4 years. * Nodules size > or = 6 mm: CT at 3-6 months. Subsequent management based on the most suspicious nodule(s) NOTE: 1) These guidelines apply to incidental nodules. These guidelines do NOT apply to patients younger than 35 years, immunocompromised patients, or patients with cancer. 2) Risk categories: * Low risk patients: Minimal or absent history of smoking and/or other known risk factors * High risk patients: History of smoking, exposure to other carcinogens, emphysema, fibrosis, upper lobe location, family history of lung cancer, etc. 3) If a nodule up to 8 mm is partly solid or is ground glass, further follow-up is required after 24 months to exclude possible slow growing adenocarcinoma. Electronically signed by: Duane Cuevas M.D. 10/17/2018 10:07 PM Dictated: 10/17/182156 Transcribed: 10/17/182156 US gallbladder HISTORY: 58 years-old Male ruq pain eval for stone acute right upper quadrant abdominal pain COMPARISON: CTA of the chest 08/12/2016 TECHNIQUE: Multiple real-time sonographic images of the abdominal right upper quadrant were obtained assessing grayscale appearance and color flow FINDINGS: Pancreas is obscured secondary to overlying bowel gas. Liver appears prominent in size. Mild intrahepatic biliary ductal dilation. No focal hepatic mass lesions or evidence of cirrhosis. Trace perihepatic ascites with trace pericholecystic fluid. Distended gallbladder contains layering cholelithiasis and comparison sludge. Gallbladder wall measures up to 2 mm in thickness. Common bile duct is dilated measuring 9 mm. Sonographic Pineda sign was unable to be assessed. Imaged right kidney demonstrates no hydronephrosis. IMPRESSION: 1. Distended gallbladder with cholelithiasis and layering gallbladder sludge. Additionally, there is trace perihepatic ascites and pericholecystic fluid. No significant wall thickening and the sonographic Pineda sign was unable to be assessed. Correlate clinically to exclude acute cholecystitis. Correlation with nuclear medicine hepatobiliary scan may also be considered. 2. Mild intrahepatic and extrahepatic biliary ductal dilation. Correlate with laboratory analysis to exclude obstructive etiology. The above report was generated using voice recognition software. It may contain grammatical, syntax or spelling errors. Electronically signed by: Jay Fernandes M.D. 10/18/2018 6:28 AM Dictated: 10/18/1824 Transcribed: 10/18/18623 XR chest 1V portable HISTORY: 58 years-old Male f/u acute shortness of breath COMPARISON: Chest radiograph 10/17/2018, chest CT 10/17/2018 TECHNIQUE: Portable AP view of the chest FINDINGS: Cardiomediastinal and hilar silhouettes are unchanged. Severe bullous emphysema with areas of chronic fibrosis. There is no pneumothorax, pleural effusion, focal airspace consolidation or overt pulmonary edema. Degenerative changes of the shoulders and spine. IMPRESSION: Stable exam with severe bullous emphysema and chronic fibrosis. The above report was generated using voice recognition software. It may contain grammatical, syntax or spelling errors. Electronically signed by: Jay Fernandes M.D. 10/18/2018 6:56 AM Dictated: 10/18/1854 Transcribed: 10/18/18653 XR chest 1V portable HISTORY: 58 years-old Male f/u follow-up study in a patient with acute respiratory failure COMPARISON: Chest radiograph 10/18/2017, chest CT 10/17/2018 TECHNIQUE: Portable AP view of the chest FINDINGS: Cardiomediastinal and hilar silhouettes are unchanged. Severe bullous emphysema with areas of chronic fibrosis. There is no pneumothorax, pleural effusion or new focal airspace consolidation. Bibasilar opacities are unchanged suggesting areas of scarring with atelectasis. Degenerative changes of the shoulders and spine. IMPRESSION: 1. No acute process. 2. Severe bullous emphysema with chronic interstitial coarsening related to fibrotic change. The above report was generated using voice recognition software. It may contain grammatical, syntax or spelling errors. Electronically signed by: Jay Fernandes M.D. 10/19/2018 6:56 AM Dictated: 10/19/1854 Transcribed: 10/19/1854 XR chest 1V portable CLINICAL HISTORY: Follow-up examination patient with emphysema and respiratory failure COMPARISON STUDY: 10/19/2018 FINDINGS: The heart is borderline enlarged. There is radiographic evidence of bullous emphysema. There is interstitial thickening, similar to prior studies. There is no lobar consolidation.[ There are no significant pleural effusions. IMPRESSION: Bullous emphysema with stable chronic interstitial thickening. No evidence of acute parenchymal consolidation Electronically signed by: Luisito King M.D. 10/20/2018 7:04 AM Dictated: 10/20/18 0703 Transcribed: 10/20/18 07 Hospital Course (1) Acute on chronic respiratory failure with hypoxia and hypercapnia: (2) Respiratory acidosis: (3) COPD exacerbation: (4) PNA (pneumonia): Present on admission with worsening SOB associated with cough CT chest showed no superimposed infiltrate to suggest pneumonia. CXR showed findings suggest superimposed diffuse infiltrate on a background of chronic lung disease, likely emphysema. Negative for influenza PCR ABG on admission showed pH 7.31 and PCO2 76 Received Vanco, Zosyn and Doxycycline Continue Zithromax to complete 5 days course Continue with Brovana and Pulmicort twice daily, instead of MDIs as per air technician Solumedrol change to prednisone 40mg twice daily for 5 days then taper by 10 mg per dose every third day. Continue Pulmonary toilet with nebulizers, incentive spirometry Pulmonology recommended pulmonary rehab, but patient refused to go to any rehab Case discussed with with patient permission said that the family spoke to him and he would not go to rehab ECHO showed no LV wall motion abnormality with EF 55-60% Continue oxygen supplement Continue monitor (5) Chronic back pain: Pain improves Continue oxycodone/hydrocodone Will hold for any drowsiness (6) Altered mental status: Metabolic Encephalopathy Due to CO2 retention in combination with opiod Clinically stable (7) Chronic hyponatremia: Stable monitor bmp (8) Hyperlipidemia: Continue lipitor (9) Tobacco use disorder: Counseling on smoking cessation On nicotine patch Weakness OT recommended rehab Pt refused rehab agreed with home health with PT/OT protective services case worker was notified and will talk to patient before placing referral Fall precaution Continue PT/OT Hypokalemia K 3.6 stable (10) DVT prophylaxis: Lovenox Disposition: Will discharge home today Total Time Total Time Spent Total Time Spent (In Minutes): 35 minutes Total Time Includes: Examination of the Patient, Discharge Planning, Medication Reconciliation, Communication With Other Providers and Other Discharge Plan Discharge Items Patient Disposition: Home - Self-Care Reason For Visit: PNA/COPD EXAC Discharge Diagnosis: (1) Acute on chronic respiratory failure with hypoxia and hypercapnia: (2) Respiratory acidosis: (3) COPD exacerbation: (4) PNA (pneumonia): Discharge Goals: Decrease discomfort, Improve disease control and Increase independence Activity: Resume your previous activity Activity Comment: As tolerated Non-emergency contact: Primary Care Provider Call non-emergency contact if: you have any medication questions Follow-up/Referrals: Migel Aguilar D.O. [Primary Care Provider] - Diet: Heart Healthy Addtl Provider Instructions: Follow up with your primary care provider Dr. Myers on 10/28 @ 1:55 PM Follow up with pulmonary (please call to schedule for the appointment) Fall precaution Prescriptions: New Brovana 15 mcg/2 mL Solution For Nebulization 15 mcg inhalation BIDR 30 Days Qty: 60 RF: 0 ipratropium-albuterol 0.5 mg-3 mg(2.5 mg base)/3 mL Solution For Nebulization 3 ml NEB Q4R 30 Days Qty: 90 RF: 0 lisinopril 20 mg Tablet 20 mg PO QAM 30 Days Qty: 30 RF: 0 budesonide 0.5 mg/2 mL Suspension For Nebulization 0.5 mg NEB BIDR 30 Days Qty: 60 RF: 0 hydralazine 50 mg Tablet 50 mg PO TID 30 Days Qty: 90 RF: 0 prednisone 10 mg tablet 10 mg PO UD Qty: 60 RF: 0 Continued atorvastatin 20 mg tablet 20 mg PO HS RF: 0 oxycodone 30 mg tablet 30 - 60 mg PO Q4 PRN (Reason: Pain) RF: 0 fluticasone propionate 50 mcg/actuation spray,suspension 1 spray intranasal DAILY RF: 0 omeprazole 20 mg capsule,delayed release(DR/EC) 20 mg PO QAM RF: 0 oxycodone-acetaminophen 10-325 mg tablet 1 - 2 tabs PO Q4H PRN (Reason: Pain) RF: 0 folic acid 1 mg Tablet 1 mg PO DAILY RF: 0 Oxygen Home Liters Per Minute RF: 0 Discontinued doxycycline hyclate 100 mg capsule 100 mg PO BID RF: 0 prednisone 20 mg tablet 20 mg PO UD RF: 0 Serevent Diskus 50 mcg/dose blister with device 1 inh inhalation BID RF: 0 Stand-Alone Forms: [facility] [employer] [facility]/Other Patient Handouts: Diabetes Meal Planning Discharge Orders: Discharge Order (Routine); Ordered 10/21/18 Ordered By: Colton Campuzano Admission Data Admit Date/Time: 10/17/18 19:15 Attending Provider: Colton Campuzano Admit Provider: Po Sher Primary Care Provider: Migel Aguilar Other Providers: Po Sher ; Radha Kang Service: Telemetry Medical Other Interventions: Discharge Summary Assessment (RN) Last Done: 10/21/18 16:36 DC Date/Time DO NOT enter until pt leaves facility: 10/21/18 17:38
== END 2018-10-21 17:38 | disposition home or self-care (01) | DRG 189 ==
LOC: ED 16:13 → 1E 19:15 → SUATTDRO 19:15 → 1E 21:17 → 2W 10-20 10:31
DX: Z99.81 Dependence on supplemental oxygen; F17.210 Nicotine dependence, cigarettes, uncomplicated; I27.81 Cor pulmonale (chronic); J44.1 Chronic obstructive pulmonary disease with (acute) exacerbation; J96.21 Acute and chronic respiratory failure with hypoxia; L40.9 Psoriasis, unspecified; G89.29 Other chronic pain; N40.0 Benign prostatic hyperplasia without lower urinary tract symptoms; F41.9 Anxiety disorder, unspecified; E78.5 Hyperlipidemia, unspecified; J18.9 Pneumonia, unspecified organism; G93.41 Metabolic encephalopathy; E87.1 Hypo-osmolality and hyponatremia; E87.2 Acidosis